=== PATIENT | male | born 1965 | race Caucasian/White ===

== ENCOUNTER 2016-02-20 10:14 | Inpatient (IN) ==
--- NOTE | 2016-02-20 10:38 | Emergency Department Note ---
Disposition Clinical Impression: Multifocal pneumonia Disposition: Admitted As Inpatient Condition: Fair Referrals: Priscilla Min MD [Primary Care Provider] - Forms: ED Satisfaction Letter SOB HPI - General Chief Complaint: ED Shortness of Breath/Dyspnea Stated Complaint: JI Time Seen by Provider: 02/20/16 10:24 Source: family Limitations: other Nursing Notes Reviewed: Yes Vital Signs Reviewed: Yes - History of Present Illness Igor is a 50-year-old male with a history of fragile X, recurrent pneumonia and schizophrenia who presents to the emergency department with an episode of coughing and gasping. He was at home, laying in bed when he began coughing and gasping for air. His sister used a portable pulse ox on his finger and it read 80% so she brought him directly to the emergency department. Over the last 2 days he has had a dry cough and multiple family members whom he lives with have similar symptoms and they thought he just caught what they had. Since he had the gasping episode today they brought him directly here. He has a history of aspiration the past patient was not eating or drinking and time. They reported him being in the hospital about a month ago for 2 days due to pneumonia. His sister states he felt very warm this morning but no documented fever. She denies any history of clots or DVTs. Patient cannot provide much information due to his chronic condition. - Related Data Home Medications Medication Instructions Recorded Confirmed Acebutolol HCl 200 mg PO QAM 11/18/15 01/13/16 Benztropine Mesylate 2 mg PO TID 11/18/15 01/13/16 Cetirizine HCl [Zyrtec] 10 mg PO DAILY 11/18/15 01/13/16 CloNIDine HCl [Clonidine HCl] 0.2 mg PO BID 11/18/15 01/13/16 Divalproex (24 HR) [Depakote ER 500 mg PO BID 11/18/15 01/13/16 (24 HR)] Fluphenazine [Prolixin] 10 mg PO BID 11/18/15 01/13/16 Hydroxyzine HCl 50 mg PO TID 11/18/15 01/13/16 Melatonin 5 mg PO HS 11/18/15 01/13/16 Omeprazole [PriLOSEC] 40 mg PO DAILY 11/18/15 01/13/16 Sulfamethoxazole/Trimeth DS 1 tab PO DAILY 11/18/15 01/13/16 [Bactrim Ds] Diazepam [Valium] 5 mg PO HS 01/13/16 01/13/16 Montelukast [Singulair] 10 mg PO HS 01/13/16 01/13/16 Previous Rx's Medication Instructions Recorded FLUoxetine HCl [Prozac] 60 mg PO DAILY #30 capsule 12/08/15 Maltodextrin/Xanthan Gum [Thicken 125 gm PO TIDAC #1 powder 12/08/15 Up Clear Powder] Allergies Allergy/AdvReac Type Severity Reaction Status Date / Time trazodone AdvReac See Verified 08/06/15 16:44 Comments Limitations: ROS unobtainable due to patients medical condition Constitutional: Reports: fever (Subjective) Respiratory: Reports: cough, dyspnea Gastrointestinal: Denies: vomiting Past Medical History - Past Medical History Medical history: Reports: asthma, GERD, other Surgical history: Reports: non-contributory Psychiatric history: Reports: bipolar, depression, schizophrenia, other - Social History Smoking Status: Never smoker Smokeless Tobacco Status: No Alcohol use: Reports: none Drug use: Reports: none Physical Exam General: Patient appears well, resting comfortably in bed, eyes open, interactive and seems appropriate Cardiovascular: Regular rate and rhythm. S1, S2. No murmurs, rubs or gallops. Respiratory: Diminished breath sounds in the bases bilaterally without any wheezing, crackles or rhonchi. No respiratory distress. Breathing unlabored with a pulse ox of 100% on room air. No coughing. Abdomen: Soft, nontender. No guarding, rebound or rigidity. Normal bowel sounds throughout. Eyes: Conjunctiva clear, no facial injury. HENT: No oral mucosal lesions. Moist mucous membranes Neuro: Patient moving all of his extremities purposely and symmetrically. He has chronic muscle wasting bilaterally with some contractures. Musculoskeletal: No joint tenderness or swelling. There is no redness, swelling , calf tenderness, edema or signs of DVT. Skin: Skin is warm with normal color and perfusion. No signs of infection. No diaphoresis. Psych: Appropriate - General Limitations: other General appearance: alert, in no apparent distress Course Course Narrative: 50-year-old with a history of fragile X, chronically bedbound, recurrent pneumonia presents the emergency department after a gasping and hypoxic episode at home. Patient's vital were stable by the time he got to the emergency department. He is slightly tachycardic. X-ray shows multifocal pneumonia and I am concerned that the patient continues to aspirate at home. Apparently they spoke with the surgeon in the past about a G-tube but was not recommended at that time in this discussion may need to occur again in the hospital. He was started on Levaquin and Flagyl for anaerobes. CBC unremarkable. CBC pending. I spoke with the on-call hospitalist, Dr. Mccrary who accepts for admission, no further orders at this time. Vital Signs Temperature 98 F 02/20/16 10:22 Pulse Rate 103 02/20/16 10:22 Respiratory Rate 22 02/20/16 10:22 Blood Pressure 102/79 02/20/16 10:22 O2 Sat by Pulse Oximetry 100 02/20/16 10:22 Temperature 98 F 02/20/16 10:22 Pulse Rate 100 02/20/16 12:28 Respiratory Rate 20 02/20/16 12:28 Blood Pressure 85/63 02/20/16 12:28 O2 Sat by Pulse Oximetry 100 02/20/16 12:28 Oxygen Delivery Oxygen Delivery Room Air Shortness of Breath/Dyspnea - Lab Data Result diagrams: 02/20/16 11:05 02/20/16 11:05 Lab Results 02/20/16 02/20/16 02/20/16 Range/Units 11:05 11:05 11:05 WBC 8.2 (4.3-11.1) K/mcL RBC 5.34 (4.19-5.50) M/mcL Hgb 16.1 (12.9-16.9) g/dL Hct 48.0 (37.5-50.1) % MCV 89.9 (83.0-100.0) fL MCH 30.1 (28.0-33.3) pg MCHC 33.5 (31.6-35.5) g/dL RDW 13.9 (11.5-14.5) % Plt Count 104 L (140-400) K/mcL MPV 11.4 (9.4-12.4) fL Immature Gran % 0.6 (0-4) % Seg Neutrophils % 90.9 % Lymphocytes % 4.0 % Monocytes % 4.4 % Eosinophils % 0.0 % Basophils % 0.1 % Neutrophils # 7.5 (1.6-8.9) K/mcL Lymphocytes # 0.3 L (0.6-4.6) K/mcL Monocytes # 0.4 (0.0-1.3) K/mcL Eosinophils # 0.0 (0.0-0.6) K/mcL Basophils # 0.0 (0.0-0.2) K/mcL Immature Plt Fraction 7.3 H (1.1-6.1) % D-Dimer < 215 (0-500) ng/mLFEU Sodium 136 (136-145) mEq/L Potassium 4.0 (3.5-4.5) mEq/L Chloride 106 (98-109) mEq/L Carbon Dioxide 19 (19-29) mEq/L BUN 7 L (8-26) mg/dL Creatinine 0.67 L (0.72-1.25) mg/dL Est GFR ( Amer) > 60 (> 60) Est GFR (Non-Af Amer) > 60 (> 60) BUN/Creatinine Ratio 10 (6-26) Glucose 80 (70-99) mg/dL Calculated Osmolality 279 L (280-300) Calcium 9.0 (8.6-10.8) mg/dL - EKG Data EKG attestation: Yes I reviewed and interpreted this EKG. EKG results narrative: Sinus tach at 106. Nonspecific ST changes. Normal axis. Normal QRS Unchanged from EKG January 12. EKG shows normal: Reports: sinus rhythm Rate: Reports: tachycardia Attestation Statement - Attestation Attestation: I examined this patient and my medical decision-making was reviewed with the HYPERTRICHOLOGIST/PA/Advanced Practice Nurse/Resident Physician. I agree with the documented findings, disposition and treatment plan as described except to the extent set forth below. Patient presents to emergency department with his chief complaint of a low pulse ox. Is accompanied by his sister. She states that this morning he was coughing when he woke up. The pulse ox and his finger read 80%. The [place] evaluation. On evaluation here is awake and alert in no distress. Lungs are slightly diminished but clear. Notably developmentally delayed. Hands are cold. Pulse ox only reads on forehead and is 100%. Plan. X-ray and basic labs. Patient with multifocal pneumonia. Patient has risk factors including aspiration, bedbound, MR. He is started on antibiotic and admitted to medicine.
[2016-02-20 11:30] LABS: BUN/Creatinine Ratio 10 (6-26); Blood Urea Nitrogen 7 mg/dL (8-26); Carbon Dioxide 19 mEq/L (19-29); Chloride 106 mEq/L (98-109); Glucose 80 mg/dL (70-99); Osmolality,Calculated 279 (280-300); Sodium 136 mEq/L (136-145); eGFR For African Americans > 60 (> 60); eGFR For Non-African Americans > 60 (> 60)
[2016-02-20] MEDS ORDERED: MetroNIDAZOLE 500 MG/100 ML 500 MG/100 ML BAG IVPB ONE (12:02)
[2016-02-20] MEDS ORDERED: Levofloxacin 750 MG/150 ML 750 MG/150 ML BAG IVPB ONE (12:02)
[2016-02-20 12:37] LABS: Basophils % 0.1 %; Hemoglobin 16.1 g/dL (12.9-16.9); Immature Granulocytes % 0.6 % (0-4); Immature Platelets 7.3 % (1.1-6.1); Lymphocytes # 0.3 K/mcL (0.6-4.6); Mean Corpuscular HGB Conc 33.5 g/dL (31.6-35.5); Mean Corpuscular Hemoglobin 30.1 pg (28.0-33.3); Mean Corpuscular Volume 89.9 fL (83.0-100.0); Mean Platelet Volume 11.4 fL (9.4-12.4); Monocytes # 0.4 K/mcL (0.0-1.3); Monocytes % 4.4 %; Neutrophils # 7.5 K/mcL (1.6-8.9); Platelet Count 104 K/mcL (140-400); Red Blood Count 5.34 M/mcL (4.19-5.50); Red Cell Distribution Width 13.9 % (11.5-14.5); Segmented Neutrophils % 90.9 %
[2016-02-20] MEDS ORDERED: Naloxone 0.4 MG/ML INJ IVP PRN (14:28)
[2016-02-20] MEDS ORDERED: Albuterol 2.5 MG/3 ML NEBULIZER IH PRN (14:32)
--- NOTE | 2016-02-20 14:52 | Internal Med History&Physical ---
Date of Encounter: 02/20/16 Time of Encounter: 14:00 Assessment and Plan (1) HCAP (healthcare-associated pneumonia) Current visit: Yes Status: Acute 1. Patient has had a recent hospitalization within the past 30 days. He presents with cough and subjective fevers x-ray suggestive of multi-focal pneumonia. Patient's high risk for aspiration. We will obtain blood cultures will attempt to obtain sputum culture however patient is not cooperative. We will start with Levaquin and vancomycin as well as Zosyn. Continue to monitor CBC 2 oxygen as needed to maintain SPO2 greater than 92% 3 bronchodilators as needed 4 place on aspiration precautions (2) Bipolar 1 disorder Current visit: No Status: Acute 1 patient times has outbursts/and becomes agitated easily. presently he has appears to be stable. 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 Alvarado is a 50 year old male with past history of fragile X MRDD bipolar schizophrenia recurrent pneumonia. Information obtained from caregiver and medical records due to patient's mental disability. The patient has history of aspiration and was recently hospitalized about a month ago for aspiration pneumonia. During this admission patient did not have barium swallow which revealed delayed initiation of swallowing with high residuals he was placed on pureed diet with thickened liquids. The family has opted not to place PEG tube and it changed his code status to a DNR CC. According to the caregiver for the past 3 days patient has been experiencing some coughing however she attributed to upper respiratory due to other family members experiencing same symptoms. This morning the patient was experiencing coughing and gasping while he is lying in bed. His caregiver checked his pulse oxygen on his finger which read 80% on room air. According to the ER notes the patient presented with tachycardia heart rate of 103 his sats are 100% he was afebrile x-ray showed a multifocal pneumonia there is no leukocytosis and the rest of his lab work is unremarkable he was given Levaquin and Flagyl and has been admitted for further workup and evaluation. Presently the patient does not appear to be in any respiratory distress. He is hemodynamically stable at this time. I did confirm CODE STATUS with caregiver he states that he is a DNR CC I reviewed the case with who agrees with plan. Past Med Surg Social Fam HX - Past Medical History Medical history: asthma, GERD, other Psychiatric history: bipolar, depression, schizophrenia, other - Past Surgical History Surgical History: non-contributory - Social History Smoking Status: Never smoker Smokeless Tobacco Status: No Alcohol use: none Drug use: none Internal Medicine - H&P: Meds Benztropine Mesylate 2 mg PO TID 11/18/15 [History] Cetirizine HCl [Zyrtec] 10 mg PO DAILY 11/18/15 [History] CloNIDine HCl [Clonidine HCl] 0.2 mg PO BID 11/18/15 [History] Divalproex (24 HR) [Depakote ER (24 HR)] 500 mg PO BID 11/18/15 [History] Fluphenazine [Prolixin] 10 mg PO BID 11/18/15 [History] Hydroxyzine HCl 50 mg PO TID 11/18/15 [History] Melatonin 5 mg PO HS 11/18/15 [History] Omeprazole [PriLOSEC] 40 mg PO DAILY 11/18/15 [History] Sulfamethoxazole/Trimeth DS [Bactrim Ds] 1 tab PO DAILY 11/18/15 [History] FLUoxetine HCl [Prozac] 60 mg PO DAILY #30 capsule 12/08/15 [Rx] Maltodextrin/Xanthan Gum [Thicken Up Clear Powder] 125 gm PO TIDAC #1 powder 03/23 [Rx] Diazepam [Valium] 5 mg PO HS 01/13/16 [History] Montelukast [Singulair] 10 mg PO HS 01/13/16 [History] Allergies trazodone Adverse Reaction (Verified 08/06/15 16:44) See Comments excessive errection ROS unobtainable: due to mental status All Systems PM: A 10-system review of systems was performed and is negative for pertinent findings except as documented above in the HPI. - Constitutional Vitals: Temp Pulse Resp BP Pulse Ox 100.3 F H 97 16 106/75 100 02/20/16 14:35 02/20/16 14:35 02/20/16 14:35 02/20/16 14:35 02/20/16 14:35 General appearance: Present: A&O X 1, underweight - Head Head exam: Present: atraumatic - Respiratory Respiratory exam: Present: decreased breath sounds, rhonchi. Absent: accessory muscle use, rales, wheezes Additional comments: faint rhonchi - Cardiovascular Cardiovascular exam: Present: RRR, +S1, +S2. Absent: diastolic murmur, gallop, rubs, systolic murmur - GI/Abdominal GI/Abdominal exam: Present: normal bowel sounds, soft, no peritoneal signs. Absent: distended, tenderness - Extremities Exam Extremities exam: Present: warm, radial pulses palpable and symetrical. Absent : calf tenderness, cyanotic, pedal edema - Neurological Exam Neurological exam: Absent: pronater drift, facial droop, speech deficit Additional comments: Oriented to name only unable to follow commands - Skin Skin exam: Present: dry, intact Internal Med - H&P Results - Labs CBC & Chem 7: 02/20/16 11:05 02/20/16 11:05 - EKG Data EKG shows normal: sinus rhythm Rate: tachycardia - EKG Data Prior EKG available for review: yes When compared to previous EKG: there is no significant change Interpretation IM: normal EKG - Diagnostic Studies Chest x-ray Additional comments: Per radiology read mild multifocal pneumonia
[2016-02-20] MEDS ORDERED: Vancomycin 750 MG in D5% in Water 250 ML IVPB SCH (16:00)
[2016-02-20] MEDS: 0.9 % Sodium Chloride 1,000 ML IVC SCH (16:24)
[2016-02-20] MEDS: Vancomycin 750 MG in D5% in Water 250 ML IVPB SCH (16:33)
[2016-02-20] MEDS: Piperacillin/Tazobactam 3.375 GM in D5% in Water (Mini-Bag+) 100 ML IVPB SCH (16:33)
[2016-02-20] MEDS ORDERED: Ondansetron 4 MG/2 ML VIAL ONE (20:04)
[2016-02-20] MEDS ORDERED: Ondansetron 4 MG/2 ML VIAL IV ONE (20:18)
[2016-02-20] MEDS: cloNIDine HCl 0.1 MG TABLET PO SCH (20:20)
[2016-02-20] MEDS: diazePAM 5 MG TABLET PO SCH (20:21)
[2016-02-20] MEDS: hydrOXYzine pamoate 25 MG CAPSULE PO SCH (20:21)
[2016-02-20] MEDS: Melatonin 3 MG TABLET PO SCH (20:21)
[2016-02-20] MEDS ORDERED: Divalproex (24 HR) 500 MG TABLET PO SCH (21:00)
[2016-02-20] MEDS: Valproic Acid INJ 500 MG in 0.9 % Sodium Chloride 100 ML IVPB SCH (22:03)
[2016-02-21] MEDS: Piperacillin/Tazobactam 3.375 GM in D5% in Water (Mini-Bag+) 100 ML IVPB SCH ×4 (00:47→23:49)
[2016-02-21] MEDS: 0.9 % Sodium Chloride 1,000 ML IVC SCH ×3 (00:48→23:50)
[2016-02-21] MEDS: Vancomycin 750 MG in D5% in Water 250 ML IVPB SCH ×2 (04:37→18:20)
[2016-02-21 05:52] LABS: Hematocrit 39.7 % (37.5-50.1); Hemoglobin 13.6 g/dL (12.9-16.9); Immature Granulocytes % 0.6 % (0-4); Immature Platelets 5.2 % (1.1-6.1); Lymphocytes # 0.4 K/mcL (0.6-4.6); Lymphocytes % 7.1 %; Mean Corpuscular HGB Conc 34.3 g/dL (31.6-35.5); Mean Corpuscular Hemoglobin 30.6 pg (28.0-33.3); Mean Corpuscular Volume 89.2 fL (83.0-100.0); Mean Platelet Volume 11.2 fL (9.4-12.4); Monocytes # 0.3 K/mcL (0.0-1.3); Monocytes % 5.5 %; Neutrophils # 5.4 K/mcL (1.6-8.9); Red Blood Count 4.45 M/mcL (4.19-5.50); Red Cell Distribution Width 13.6 % (11.5-14.5); Segmented Neutrophils % 86.8 %
[2016-02-21 05:59] LABS: BUN/Creatinine Ratio 11 (6-26); Blood Urea Nitrogen 7 mg/dL (8-26); Calcium 8.4 mg/dL (8.6-10.8); Carbon Dioxide 23 mEq/L (19-29); Chloride 106 mEq/L (98-109); Glucose 97 mg/dL (70-99); Osmolality,Calculated 282 (280-300); Potassium 4.3 mEq/L (3.5-4.5); Sodium 137 mEq/L (136-145); eGFR For African Americans > 60 (> 60); eGFR For Non-African Americans > 60 (> 60)
[2016-02-21 06:16] LABS: Platelet Count 85 K/mcL (140-400)
[2016-02-21 06:24] LABS: Large Platelets Present (Not Present); Platelet Estimate Decreased (Normal)
--- NOTE | 2016-02-21 08:08 | Internal Med Progress Note ---
<Naseem Wisdom - Last Filed: 02/21/16 12:16> Date of Encounter: 02/21/16 Time of Encounter: 08:08 - Assessment and plan (1) HCAP (healthcare-associated pneumonia) Current Visit: Yes Status: Acute Assessment and plan: Recent hospitalization last month, chest x-ray showed multifocal PNA, HCAP vs aspiration PNA, hx of recurrent aspiration issue, will con't vanco, zosyn and levaquin IV and deescalate based on culture results, blood culture pending, no sepsis. Will obtain CT of chest with contrast today. (2) History of aspiration pneumonia Current Visit: Yes Status: Acute Assessment and plan: Family member refused PEG tube last time, aspiration precaution, nutrition consulted for diet recommendation. (3) Mental retardation Current Visit: Yes Status: Acute Assessment and plan: At his baseline. (4) Thrombocytopenia Current Visit: Yes Status: Acute Assessment and plan: Likely 2/2 HCAP, con't to trend, recheck in AM. (5) Malnutrition Current Visit: Yes Status: Acute Assessment and plan: Nutrition consulted, recent weight loss. (6) DVT prophylaxis Current Visit: Yes Status: Acute Assessment and plan: SCD. - Subjective Interval history: Pt seen and examined, [facility], mental status is at his baseline, unable to answer questions. - Constitutional Vitals: Temp Pulse Resp BP Pulse Ox 97.7 F 87 16 115/69 100 02/21/16 07:00 02/21/16 07:00 02/21/16 07:00 02/21/16 07:00 02/21/16 07:00 General appearance: Present: A&O X 0, no acute distress, underweight - Head Head exam: Present: atraumatic, normocephalic - Eye Eye exam: Present: PERRL, conjuntiva pink, sclera anicteric Pupils: Present: PERRL - Neck Neck exam general surgery: Present: supple, trachea midline. Absent: lymphadenopathy - Respiratory Respiratory exam: Present: rhonchi (mildly diffusely). Absent: accessory muscle use, rales, wheezes - Cardiovascular Cardiovascular exam: Present: RRR, +S1, +S2. Absent: diastolic murmur, gallop, rubs, systolic murmur - GI/Abdominal GI/Abdominal exam: Present: normal bowel sounds, soft. Absent: distended, tenderness - Extremities Exam Extremities exam: Present: warm, radial pulses palpable and symetrical. Absent : calf tenderness, cyanotic, pedal edema - Neurological Exam Neurological exam: Present: CN II-XII intact, no focal deficits. Absent: oriented X3, pronater drift, facial droop, speech deficit - Skin Skin exam: Present: dry, intact Internal Medicine: Result - Labs CBC & Chem 7: 02/21/16 05:35 02/21/16 05:35 Labs: Short CBC 02/21/16 Range/Units 05:35 WBC 6.2 (4.3-11.1) K/mcL Hgb 13.6 D (12.9-16.9) g/dL Hct 39.7 (37.5-50.1) % Plt Count 85 L (140-400) K/mcL Neutrophils # 5.4 (1.6-8.9) K/mcL BMP 02/21/16 05:35 Sodium 137 Potassium 4.3 Chloride 106 Carbon Dioxide 23 BUN 7 L Creatinine 0.65 L Glucose 97 Calcium 8.4 L - ABG Interpretation ABG results: PT/INR, D-dimer D-Dimer < 215 ng/mLFEU (0-500) 02/20/16 11:05 Consult Discharge Plan - Plan Referrals: Priscilla Min MD [Primary Care Provider] - 03/03/16 10:45 am <Cam Pool - Last Filed: 02/21/16 17:03> Date of Encounter: 02/21/16 - Constitutional Vitals: Temp Pulse Resp BP Pulse Ox 97.7 F 81 16 105/71 100 02/21/16 07:00 02/21/16 15:00 02/21/16 15:00 02/21/16 15:00 02/21/16 15:00 Internal Medicine: Result - Labs CBC & Chem 7: 02/21/16 05:35 02/21/16 05:35 Labs: Short CBC 02/21/16 Range/Units 05:35 WBC 6.2 (4.3-11.1) K/mcL Hgb 13.6 D (12.9-16.9) g/dL Hct 39.7 (37.5-50.1) % Plt Count 85 L (140-400) K/mcL Neutrophils # 5.4 (1.6-8.9) K/mcL BMP 02/21/16 05:35 Sodium 137 Potassium 4.3 Chloride 106 Carbon Dioxide 23 BUN 7 L Creatinine 0.65 L Glucose 97 Calcium 8.4 L - ABG Interpretation ABG results: PT/INR, D-dimer D-Dimer < 215 ng/mLFEU (0-500) 02/20/16 11:05 - Impressions Impressions Chest CT 02/21/16 13:00 IMPRESSION: 1. Multifocal pneumonia. Given material within the right lower lobe bronchus, aspiration is suspected. 2. Mediastinal and hilar adenopathy, likely reactive. D/ / Yomaira Almonte MD / Yomaira Almonte MD Interpreting Provider: Yomaira Almonte MD - Attending Attestation I examined this patient and my medical decision-making was reviewed with the ENVIRONMENTAL MARKETING REPRESENTATIVE/PA/Advanced Practice Nurse/Resident Physician. I agree with the documented findings, disposition and treatment plan as described except to the extent set forth below. Recurrent pneumonia, multiple visits for the same diagnosis in the recent past, strong family history of malignancy, nonintentional weight loss and positive CT scan. Pulmonary opinion may help in further diagnosis.
[2016-02-21] MEDS: FLUoxetine 20 MG CAPSULE PO SCH (09:23)
[2016-02-21] MEDS: cloNIDine HCl 0.1 MG TABLET PO SCH (09:23)
[2016-02-21] MEDS: Loratadine 10 MG TABLET PO SCH (09:23)
[2016-02-21] MEDS: hydrOXYzine pamoate 25 MG CAPSULE PO SCH ×3 (09:23→20:25)
[2016-02-21] MEDS: Levofloxacin 500 MG/100 ML 500 MG/100 ML BAG IVPB SCH (09:24)
[2016-02-21] MEDS: Valproic Acid INJ 500 MG in 0.9 % Sodium Chloride 100 ML IVPB SCH ×2 (14:14→22:50)
[2016-02-21] MEDS: diazePAM 5 MG TABLET PO SCH (20:25)
[2016-02-21] MEDS: Melatonin 3 MG TABLET PO SCH (20:26)
[2016-02-21] MEDS ORDERED: cloNIDine HCl 0.1 MG TABLET PO SCH (21:00)
[2016-02-21] MEDS: Acetaminophen 325 MG TABLET PO PRN (23:46)
[2016-02-22] MEDS: Vancomycin 750 MG in D5% in Water 250 ML IVPB SCH (05:01)
[2016-02-22] MEDS ORDERED: Aminoglycoside Consult 1 EACH MC ONE (08:07)
--- NOTE | 2016-02-22 08:19 | Internal Med Progress Note ---
<Naseem Wisdom - Last Filed: 02/22/16 14:37> Date of Encounter: 02/22/16 Time of Encounter: 08:18 - Assessment and plan (1) Aspiration pneumonia Current Visit: Yes Status: Acute Assessment and plan: Recurrent issue, CT of chest suggested aspiration pneumonia, family member refused PEG tube last time, pulm consulted, no bronchoscopy was recommended for low yield results, con't zosyn IV, total of 7 days, switch to augmentin at time of discharge. Qualifiers: Qualified Code(s): J69.0 - Pneumonitis due to inhalation of food and vomit (2) Mental retardation Current Visit: Yes Status: Acute Assessment and plan: At his baseline. (3) Thrombocytopenia Current Visit: Yes Status: Acute Assessment and plan: Likely 2/2 infection, con't to trend, recheck in AM. (4) Malnutrition Current Visit: Yes Status: Acute Assessment and plan: Nutrition consulted, recent weight loss. (5) DVT prophylaxis Current Visit: Yes Status: Acute Assessment and plan: SCD. - Subjective Interval history: Pt seen and examined, A and O x0 from [facility], mental status is at his baseline, unable to answer questions. - Constitutional Vitals: Temp Pulse Resp BP Pulse Ox 99.3 F 79 81 95/64 18 L 02/22/16 07:40 02/22/16 07:34 02/22/16 07:34 02/22/16 07:34 02/22/16 07:34 General appearance: Present: A&O X 0, no acute distress, underweight - Head Head exam: Present: atraumatic, normocephalic - Eye Eye exam: Present: PERRL, conjuntiva pink, sclera anicteric Pupils: Present: PERRL - Neck Neck exam general surgery: Present: supple, trachea midline. Absent: lymphadenopathy - Respiratory Respiratory exam: Present: rhonchi (at base b/l). Absent: accessory muscle use , rales, wheezes - Cardiovascular Cardiovascular exam: Present: RRR, +S1, +S2. Absent: diastolic murmur, gallop, rubs, systolic murmur - GI/Abdominal GI/Abdominal exam: Present: normal bowel sounds, soft, no peritoneal signs. Absent: distended, tenderness - Extremities Exam Extremities exam: Present: warm, radial pulses palpable and symetrical. Absent : calf tenderness, cyanotic, pedal edema - Neurological Exam Neurological exam: Present: CN II-XII intact, oriented X3, no focal deficits. Absent: pronater drift, facial droop, speech deficit - Skin Skin exam: Present: dry, intact Internal Medicine: Result - Labs CBC & Chem 7: 02/21/16 05:35 02/21/16 05:35 - ABG Interpretation ABG results: PT/INR, D-dimer D-Dimer < 215 ng/mLFEU (0-500) 02/20/16 11:05 - Impressions Impressions Chest CT 02/21/16 13:00 IMPRESSION: 1. Multifocal pneumonia. Given material within the right lower lobe bronchus, aspiration is suspected. 2. Mediastinal and hilar adenopathy, likely reactive. D/ / 02/21/2016 17:11:20 Yomaira Almonte MD / [facility] [place] Interpreting Provider: Yomaira Almonte MD - VTE Documentation of Mechanical Device: Intermittent pneumatic compression device Consult Discharge Plan - Plan Referrals: Priscilla Min MD [Primary Care Provider] - 03/03/16 10:45 am <Pedro Dunlap - Last Filed: 02/22/16 16:55> Date of Encounter: 02/22/16 - Assessment and plan (1) Aspiration pneumonia Current Visit: Yes Status: Acute Qualifiers: Aspiration pneumonia type: due to gastric secretions Laterality: bilateral Lung location: upper lobe of lung Qualified Code(s): J69.0 - Pneumonitis due to inhalation of food and vomit (2) Dysphagia Current Visit: Yes Status: Acute Qualifiers: Dysphagia type: oropharyngeal phase Qualified Code(s): R13.12 - Dysphagia, oropharyngeal phase (3) Unintentional weight loss Current Visit: Yes Status: Chronic (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 Current Visit: No Status: Chronic (5) Mental retardation Current Visit: Yes Status: Acute (6) Severe protein-calorie malnutrition Current Visit: Yes Status: Acute - Constitutional Vitals: Temp Pulse Resp BP Pulse Ox 99.5 F 104 18 118/72 100 02/22/16 11:37 02/22/16 11:37 02/22/16 11:37 02/22/16 11:37 01/17/17 11:37 Internal Medicine: Result - Labs CBC & Chem 7: 02/21/16 05:35 02/21/16 05:35 - ABG Interpretation ABG results: PT/INR, D-dimer D-Dimer < 215 ng/mLFEU (0-500) 02/20/16 11:05 - Attending Attestation I examined this patient and my medical decision-making was reviewed with the Resident Physician on 02/22/16. I agree with the documented findings, disposition and treatment plan as described except to the extent set forth below. Mr. Alvarado is currently admitted for acute recurrent aspiration pneumonia. He remains moderate to high risk due to potential of worsening respiratory status and infection. Mr. Alvarado is resting comfortably. He is awake and smiling when I visited. No complaints at this time. Exam Alert. Comfortable Cachetic. Mucus membranes moist Heart reg Lungs with rhonchi bilaterally I/P 1. Recurrent acute aspiration pneumonia - on IV abx. Can transition to PO. 2. Dysphagia 3. Weight loss Discussed with family - need to decide ultimate plan of care. Will consult palliative.
--- NOTE | 2016-02-22 09:38 | Pulmonology Consult Note ---
Date of Encounter: 02/22/16 Time of Encounter: 09:35 Assessment and Plan (1) Abnormal CT scan, chest Current Visit: Yes Status: Acute I personally reviewed this CT scan of the chest. There are bilateral patchy infiltrates most notably in the right lower lobe. There is also mucoid material in the bronchus intermedius and right lower lobe. No overt mucous plugging or atelectasis is noted. Mediastinal and hilar adenopathy is likely reactive in etiology. No lung mass or clear signs of malignancy noted. There are no prior CT scans of the chest for comparison. These findings are all consistent with aspiration pneumonia/pneumonitis. I would not recommend bronchoscopy, as it would be a low yield procedure. I recommend avoidance of future aspiration events as able and a repeat CT scan of the chest in 2-3 months to observe for radiographic clearance of these abnormalities. (2) Aspiration pneumonia Current Visit: No Status: Acute Zosyn would likely be adequate coverage for aspiration pneumonia. I would recommend a 7 day course of antibiotics. Augmentin would be a reasonable outpatient regimen to initiate at the time of discharge to complete the course of antibiotics, assuming that cultured data is negative. Qualifiers: Aspiration pneumonia type: unspecified Laterality: bilateral Lung location: lower lobe of lung Qualified Code(s): J69.0 - Pneumonitis due to inhalation of food and vomit (3) Dysphagia Current Visit: Yes Status: Acute Recurrent aspiration, which is not likely reversible at this point. He just got done choking on nectar thickened liquids at the time of my exam (due to "drinking too fast"). This will be a recurrent event. I would recommend strict NPO status and PEG tube insertion. Although a PEG tube does not completely prevent aspiration, it would be the best choice in this scenario in my opinion. No further recommendations from a pulmonary standpoint. Will sign off. Please call with questions. Qualifiers: Dysphagia type: unspecified Qualified Code(s): R13.10 - Dysphagia, unspecified History of Present Illness Consult date: 02/22/16 Requesting physician: Naseem Wisdom Reason for consult: abnormal CXR/CT Chief complaint: recurrent aspiration History of present illness: 50-year-old white male with a medical history significant for mental retardation who presents to the hospital with recurrent aspiration. Of note, I am unable to obtain any history or review of systems secondary to patient's baseline mental status. Information was obtained from the medical record and in discussion with hospital staff. Reportedly, the patient had a recent hospitalization for aspiration pneumonia/ pneumonitis. It was recommended that the patient had a PEG tube placed at that time, but this was not in accordance with the family's wishes. Unfortunately, the patient re-presented with respiratory symptoms associated with aspiration. A CT scan of the chest was obtained, which revealed bilateral infiltrates and debris and the right-sided airways. There is also mediastinal and hilar adenopathy noted. Of note, the patient had been fed prior to my entering the room. Per the nursing program chair who had been feeding the patient, despite coaching the patient had drank his thickened liquid to fast causing him to choke and cough. He is still coughing the time of my exam. Patient denies any current symptoms, but as I said previously he has baseline mental retardation and is an unreliable historian. Past Med Surg Social Fam HX - Past Medical History Medical history: asthma, GERD, other Psychiatric history: bipolar, depression, schizophrenia, other - Past Surgical History Surgical History: non-contributory - Social History Smoking Status: Never smoker Smokeless Tobacco Status: No Alcohol use: none Drug use: none Medications and Allergies Benztropine Mesylate 2 mg PO TID 11/18/15 [History] Cetirizine HCl [Zyrtec] 10 mg PO DAILY 11/18/15 [History] CloNIDine HCl [Clonidine HCl] 0.2 mg PO BID 11/18/15 [History] Divalproex (24 HR) [Depakote ER (24 HR)] 500 mg PO BID 11/18/15 [History] Fluphenazine [Prolixin] 10 mg PO BID 11/18/15 [History] Hydroxyzine HCl 50 mg PO TID 11/18/15 [History] Melatonin 5 mg PO HS 11/18/15 [History] Omeprazole [PriLOSEC] 40 mg PO DAILY 11/18/15 [History] Sulfamethoxazole/Trimeth DS [Bactrim Ds] 1 tab PO DAILY 11/18/15 [History] FLUoxetine HCl [Prozac] 60 mg PO DAILY #30 capsule 12/08/15 [Rx] Maltodextrin/Xanthan Gum [Thicken Up Clear Powder] 125 gm PO TIDAC #1 powder 03/23 [Rx] Diazepam [Valium] 5 mg PO HS 01/13/16 [History] Montelukast [Singulair] 10 mg PO HS 01/13/16 [History] Allergies trazodone Adverse Reaction (Verified 08/06/15 16:44) See Comments excessive errection ROS unobtainable: due to mental status Physical Examination Vital Signs: Vital Signs, Last 4 Hours Temp Pulse Resp BP Pulse Ox 02/22/16 07:40 99.3 F 02/22/16 07:34 79 81 95/64 18 L General: no acute distress, chronically ill-appearing, contractures of extremities noted Eyes: nonicteric ENT: oropharynx moist Neck: supple, no lymphadenopathy Lungs: Coarse bilateral breath sounds Cardiovascular: regular rate and rhythm Gastrointestinal: normoactive bowel sounds, soft, non-tender, mildly distended Integumentary: normal Extremities: no cyanosis, no edema. Musculoskeletal: apparent contractures of the upper and lower extremities noted Neuro: Alert and interactive with caregivers, but baseline of mental retardation , does not answer questions appropriately Psych: odd affect Results - Laboratory Findings CBC and BMP: 02/21/16 05:35 02/21/16 05:35 PT/INR, D-dimer D-Dimer < 215 ng/mLFEU (0-500) 02/20/16 11:05 Abnormal lab findings: Abnormal lab results Plt Count 85 K/mcL (140-400) L 02/21/16 05:35 Lymphocytes # 0.4 K/mcL (0.6-4.6) L 02/21/16 05:35 Platelet Estimate Decreased (Normal) L 02/21/16 05:35 Large Platelets Present (Not Present) A 02/21/16 05:35 BUN 7 mg/dL (8-26) L 02/21/16 05:35 Creatinine 0.65 mg/dL (0.72-1.25) L 02/21/16 05:35 Calcium 8.4 mg/dL (8.6-10.8) L 02/21/16 05:35 - Microbiology Findings Microbiology Findings: Microbiology, Last 48 Hours 02/20/16 15:52 Blood Culture - Preliminary Peripheral Venipuncture No growth. - Clinical Findings Intake & Output: Intake & Output 02/21/16 02/22/16 02/22/16 23:59 07:59 15:59 Intake Total 1350 / 1350 100 / 100 Output Total 0 / 0 Balance 1350 / 1350 100 / 100 Weight 43.1 kg Consult Discharge Plan - Plan Referrals: Priscilla Min MD [Primary Care Provider] - 03/03/16 10:45 am
[2016-02-22] MEDS: Divalproex (12 HR) 500 MG TABLET PO SCH ×2 (10:26→21:51)
[2016-02-22] MEDS: hydrOXYzine pamoate 25 MG CAPSULE PO SCH ×3 (10:26→21:52)
[2016-02-22] MEDS: Loratadine 10 MG TABLET PO SCH (10:27)
[2016-02-22] MEDS: FLUoxetine 20 MG CAPSULE PO SCH (10:27)
[2016-02-22] MEDS: Levofloxacin 500 MG/100 ML 500 MG/100 ML BAG IVPB SCH (10:27)
[2016-02-22] MEDS: 0.9 % Sodium Chloride 1,000 ML IVC SCH (10:28)
[2016-02-22] MEDS: Piperacillin/Tazobactam 3.375 GM in D5% in Water (Mini-Bag+) 100 ML IVPB SCH (10:28)
[2016-02-22] MEDS ORDERED: Vancomycin 1,000 MG in D5% in Water 250 ML IVPB SCH (17:00)
--- NOTE | 2016-02-22 17:05 | Electrocardiograph Report ---
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
[2016-02-22] MEDS ORDERED: Piperacillin/Tazobactam 3.375 GM in D5% in Water (Mini-Bag+) 100 ML IVPB SCH (18:00)
[2016-02-22] MEDS: Acetaminophen 325 MG TABLET PO PRN (19:17)
[2016-02-22] MEDS: Melatonin 3 MG TABLET PO SCH (21:52)
[2016-02-22] MEDS: diazePAM 5 MG TABLET PO SCH (21:52)
[2016-02-23 05:26] LABS: Basophils % 0.9 %; Hematocrit 40.2 % (37.5-50.1); Hemoglobin 13.8 g/dL (12.9-16.9); Immature Granulocytes % 0.4 % (0-4); Immature Platelets 4.9 % (1.1-6.1); Lymphocytes # 0.4 K/mcL (0.6-4.6); Lymphocytes % 17.6 %; Mean Corpuscular HGB Conc 34.3 g/dL (31.6-35.5); Mean Corpuscular Hemoglobin 29.9 pg (28.0-33.3); Mean Platelet Volume 11.3 fL (9.4-12.4); Monocytes # 0.3 K/mcL (0.0-1.3); Monocytes % 11.2 %; Neutrophils # 1.6 K/mcL (1.6-8.9); Red Blood Count 4.62 M/mcL (4.19-5.50); Red Cell Distribution Width 13.3 % (11.5-14.5); Segmented Neutrophils % 69.9 %
[2016-02-23 05:30] LABS: Platelet Count 74 K/mcL (140-400)
[2016-02-23 06:17] LABS: Large Platelets Present (Not Present); Platelet Estimate Decreased (Normal)
--- NOTE | 2016-02-23 08:36 | Internal Med Progress Note ---
<Naseem Wisdom - Last Filed: 02/23/16 11:51> Date of Encounter: 02/23/16 Time of Encounter: 08:36 - Assessment and plan (1) Aspiration pneumonia Current Visit: Yes Status: Acute Assessment and plan: Recurrent issue, CT of chest suggested aspiration pneumonia, family member refused PEG tube last time, pulm consulted, no bronchoscopy was recommended for low yield results, clinically and lab/vital sign worse, septic, will resume vanco and zosyn IV today, blood cultures negative, recent hospitalization so HCAP including MRSA infection cannot be ruled out, unable to collect sputum sample. Palliative consult for goal of care. (2) Mental retardation Current Visit: Yes Status: Acute Assessment and plan: At his baseline but clinically worse than yesterday from pneumonia. (3) Thrombocytopenia Current Visit: Yes Status: Acute Assessment and plan: Likely 2/2 infection, worse, con't to monitor and broaden IV abxs. (4) Malnutrition Current Visit: Yes Status: Acute Assessment and plan: Nutrition consulted, recent weight loss. (5) DVT prophylaxis Current Visit: Yes Status: Acute Assessment and plan: SCD. - Subjective Interval history: Pt seen and examined, A and O x0 from [facility], mental status is at his baseline, unable to answer questions but looks more drowsy and diaphoretic today. - Constitutional Vitals: Temp Pulse Resp BP Pulse Ox 97.6 F 110 22 114/87 100 02/23/16 07:00 02/23/16 07:00 02/23/16 07:00 02/23/16 07:00 02/23/16 07:00 General appearance: Present: A&O X 0, no acute distress, underweight - Head Head exam: Present: atraumatic, normocephalic - Eye Eye exam: Present: PERRL, conjuntiva pink, sclera anicteric Pupils: Present: PERRL - Neck Neck exam general surgery: Present: supple, trachea midline. Absent: lymphadenopathy - Respiratory Respiratory exam: Present: CTAB. Absent: accessory muscle use, rales, rhonchi, wheezes - Cardiovascular Cardiovascular exam: Present: +S1, +S2, tachycardia. Absent: diastolic murmur, gallop, rubs, systolic murmur - GI/Abdominal GI/Abdominal exam: Present: normal bowel sounds, soft, no peritoneal signs. Absent: distended, tenderness - Extremities Exam Extremities exam: Present: warm, radial pulses palpable and symetrical. Absent : calf tenderness, cyanotic, pedal edema - Neurological Exam Neurological exam: Present: CN II-XII intact, no focal deficits. Absent: alert , oriented X3, pronater drift, facial droop, speech deficit - Skin Skin exam: Present: dry, intact Internal Medicine: Result - Labs CBC & Chem 7: 02/23/16 04:32 02/21/16 05:35 Labs: Short CBC 02/23/16 Range/Units 04:32 WBC 2.3 L D (4.3-11.1) K/mcL Hgb 13.8 (12.9-16.9) g/dL Hct 40.2 (37.5-50.1) % Plt Count 74 L (140-400) K/mcL Neutrophils # 1.6 (1.6-8.9) K/mcL - ABG Interpretation ABG results: PT/INR, D-dimer D-Dimer < 215 ng/mLFEU (0-500) 02/20/16 11:05 - VTE Documentation of Mechanical Device: Intermittent pneumatic compression device Consult Discharge Plan - Plan Referrals: Priscilla Min MD [Primary Care Provider] - 03/03/16 10:45 am <Pedro Dunlap - Last Filed: 02/23/16 15:53> Date of Encounter: 02/23/16 - Assessment and plan (1) Aspiration pneumonia Current Visit: Yes Status: Acute Qualifiers: Aspiration pneumonia type: due to gastric secretions Laterality: bilateral Lung location: upper lobe of lung Qualified Code(s): J69.0 - Pneumonitis due to inhalation of food and vomit (2) Dysphagia Current Visit: Yes Status: Acute Qualifiers: Dysphagia type: oropharyngeal phase Qualified Code(s): R13.12 - Dysphagia, oropharyngeal phase (3) Unintentional weight loss Current Visit: Yes Status: Chronic (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 Current Visit: No Status: Chronic (5) Mental retardation Current Visit: Yes Status: Acute (6) Severe protein-calorie malnutrition Current Visit: Yes Status: Acute - Constitutional Vitals: Temp Pulse Resp BP Pulse Ox 97.6 F 113 16 120/83 99 02/23/16 07:00 02/23/16 11:00 02/23/16 11:00 02/23/16 11:00 02/23/16 11:00 Internal Medicine: Result - Labs CBC & Chem 7: 02/23/16 04:32 02/21/16 05:35 Labs: Short CBC 02/23/16 Range/Units 04:32 WBC 2.3 L D (4.3-11.1) K/mcL Hgb 13.8 (12.9-16.9) g/dL Hct 40.2 (37.5-50.1) % Plt Count 74 L (140-400) K/mcL Neutrophils # 1.6 (1.6-8.9) K/mcL - ABG Interpretation ABG results: PT/INR, D-dimer D-Dimer < 215 ng/mLFEU (0-500) 02/20/16 11:05 - Attending Attestation I examined this patient and my medical decision-making was reviewed with the Resident Physician on 02/23/16. I agree with the documented findings, disposition and treatment plan as described except to the extent set forth below. Mr. Alvarado is currently admitted for recurrent aspiration pneumonia due to significant dysphagia. He remains moderate to high risk due to continued aspiration and decline. Mr. Alvarado had low grade temp last night. He is not as alert this AM. He was coughing while drinking yesterday. Currently he is awake but not as interactive as yesterday. Exam Alert. No respiratory distress. Heart tachy and regular Lungs coarse I/P 1. Recurrent asp pneumonia - restarting IV abx today pending decisions regarding goals of care. 2. Dysphagia 3. Fragile X syndrome Palliative care consulted and input appreciated. Hospice consulted as well.
[2016-02-23] MEDS: hydrOXYzine pamoate 25 MG CAPSULE PO SCH ×3 (09:49→20:36)
[2016-02-23] MEDS: Loratadine 10 MG TABLET PO SCH (09:50)
[2016-02-23] MEDS: FLUoxetine 20 MG CAPSULE PO SCH (09:50)
[2016-02-23] MEDS: Divalproex (12 HR) 500 MG TABLET PO SCH ×2 (09:54→20:25)
--- NOTE | 2016-02-23 10:47 | Palliative - Consult Note ---
Date of Encounter: 02/23/16 Time of Encounter: 10:00 - Assessment and Plan (1) Goals of care, counseling/discussion Current Visit: Yes Status: Acute Assessment and plan: Conducted meeting with sister Leslie (patient's guardian) # [phone] and sister Nasima # [phone]. Medical record reviewed and discussed unplanned weight loss from dysphagia and aspiration pneumonia. Discussed multiple admissions over past 4 months with aspiration and impact on body. Reviewed pulmonary note as well as speech pathology details related to diet and feeding patient. Sisters serve as primary care givers and patient currently getting [facility] services in the form of PT twice week and nurse visit twice a week. Discussed the pros and cons of having PEG inserted to facilitate nutritional needs. Education on insertion, feedings and maintenance provided. Answered questions related to potential for infection and explained that aspiration would still be issue given that patient prefers to sleep flat in the bed and move around frequently. Sisters verbalized that they had no desire to insert a PEG for nutrition. I explained to them that the patient meets hospice criteria given his poor ability to manage po intake and dysphagia secondary to his Fragile X syndrome. Sisters open to meeting with hospice retail field representative to learn more about hospice and the care they would receive. I provided the basic details related to philosophy and quality of care goals. Currently the patient is able to ambulate with the assistance of sisters and go out into the shopping center to shop. He sits in the chair regularly at home but has to be hand fed by family. I will set -up a meeting between hospice rep and family. Will follow outcome of meeting and transition care as indicated. (2) Malnutrition Current Visit: Yes Status: Acute Assessment and plan: Patient with 30% unplanned weight loss over past months. Current weight 43.1kg. Severe protein and calorie malnutrition. Patient with continued aspiration pneumonia admissions and family declines insertion of a PEG tube. MBS normal. Patient recommended feeding with spoon a pureed and nector thick liquid diet. Patient unable to follow commands. Slow po feedings by hand of caregiver and family deciding on hospice enrollment. (3) Dysphagia Current Visit: Yes Status: Acute Assessment and plan: Recommendations from speech include feed small bites with spoon of a diet Pureed and nector thick liquids. HOB elevated. Educated sisters in feeding process as patient cannot follow commands. Monitor I & O. Qualifiers: Dysphagia type: oropharyngeal phase Qualified Code(s): R13.12 - Dysphagia, oropharyngeal phase (4) Aspiration pneumonia Current Visit: Yes Status: Acute Qualifiers: Aspiration pneumonia type: due to gastric secretions Laterality: bilateral Lung location: upper lobe of lung Qualified Code(s): J69.0 - Pneumonitis due to inhalation of food and vomit Palliative-CN HPI - Data of Consult Patient: new to practice Consult date: 02/23/16 Requesting Physician: Pedro Dunlap DO Primary Care Provider: Priscilla Min - Consult Narrative Palliative Care/Comfort Measures: Palliative care Reason for consult: Goals of care History of present illness: Mr. Alvarado is a 50 year old male with a history of Fragile X syndrome MRDD. Admitted from home with aspiration pneumonia. Patient noted to have multiple admissions over the past 4 months with aspiration issues. Baseline MRDD with no ability to hold meaningful conversations. Patient with bipolar and schizophrenia. Chart reviewed for H & P and pulmonary consult noted. It appears that the patient has had issues with dysphagia at home. Multiple provider notes indicate that family desires NOT to insert a PEG tube. This palliative care consult is for goals of care planning. CC: Perdo Dunlap DO Past Med Surg Social Fam HX - Past Medical History Source: old records reviewed, nursing notes reviewed Medical history: asthma, GERD, other Psychiatric history: bipolar, depression, schizophrenia, other - Past Surgical History Surgical History: non-contributory - Social History Smoking Status: Never smoker Smokeless Tobacco Status: No Alcohol use: none Drug use: none Occupational status: unemployed Current living situation: Home, With Family Activity Level: Bed bound Recent Out of Country Travel Within the Last 8 Weeks: No Exposure or Possible Exposure to Illness During Travel: No Medications and Allergies Benztropine Mesylate 2 mg PO TID 11/18/15 [History] Cetirizine HCl [Zyrtec] 10 mg PO DAILY 11/18/15 [History] CloNIDine HCl [Clonidine HCl] 0.2 mg PO BID 11/18/15 [History] Divalproex (24 HR) [Depakote ER (24 HR)] 500 mg PO BID 11/18/15 [History] Fluphenazine [Prolixin] 10 mg PO BID 11/18/15 [History] Hydroxyzine HCl 50 mg PO TID 11/18/15 [History] Melatonin 5 mg PO HS 11/18/15 [History] Omeprazole [PriLOSEC] 40 mg PO DAILY 11/18/15 [History] Sulfamethoxazole/Trimeth DS [Bactrim Ds] 1 tab PO DAILY 11/18/15 [History] FLUoxetine HCl [Prozac] 60 mg PO DAILY #30 capsule 12/08/15 [Rx] Maltodextrin/Xanthan Gum [Thicken Up Clear Powder] 125 gm PO TIDAC #1 powder 03/23 [Rx] Diazepam [Valium] 5 mg PO HS 01/13/16 [History] Montelukast [Singulair] 10 mg PO HS 01/13/16 [History] Allergies trazodone Adverse Reaction (Verified 08/06/15 16:44) See Comments excessive errection ROS unobtainable: due to mental status (patient with MRDD) - Constitutional Constitutional ROS PAL: weight loss - EENT Ears, nose, mouth, throat: as per HPI - Musculoskeletal Musculoskeletal ROS IM: muscle weakness - Neurological Neurological ROS: as per HPI Palliative Care-Exam - Constitutional Vitals: Temp Pulse Resp BP Pulse Ox 97.6 F 110 22 114/87 100 02/23/16 07:00 02/23/16 07:00 02/23/16 07:00 02/23/16 07:00 02/23/16 07:00 General appearance: Present: cooperative, no acute distress - Head Head Exam: Present: atraumatic, normal inspection, normocephalic - Eye Eye exam: Present: PERRL Pupils: Present: PERRL - ENT ENT exam: Present: mucous membranes moist - Respiratory Respiratory exam: Present: decreased breath sounds - Expanded Respiratory Exam Location: decreased breath sounds: Left, Right, Lower - Cardiovascular Cardiovascular exam: Present: RRR, +S1, +S2 - Expanded Cardiovascular Exam Peripheral pulses: 2+: Carotid (L) PM, Carotid (R) PM, Radial (L), Radial (R), Dorsalis Pedis (L) PM, Dorsalis Pedis (R) PM - GI/Abdominal Exam GI/Abdominal exam: Present: soft - Rectal Rectal Exam: Present: deferred - Neurological Exam Neurological exam: Present: alert (MRDD, contracture of upper and lower extremities) - Psychiatric Psychiatric exam: Present: flat affect - Skin Skin exam: Present: warm Internal Medicine - CN: Reslt - Labs CBC & Chem 7: 02/23/16 04:32 02/21/16 05:35 Labs: Short CBC 02/23/16 Range/Units 04:32 WBC 2.3 L D (4.3-11.1) K/mcL Hgb 13.8 (12.9-16.9) g/dL Hct 40.2 (37.5-50.1) % Plt Count 74 L (140-400) K/mcL Neutrophils # 1.6 (1.6-8.9) K/mcL - ABG Interpretation ABG results: PT/INR, D-dimer D-Dimer < 215 ng/mLFEU (0-500) 02/20/16 11:05 Consult Discharge Plan - Plan Referrals: Priscilla Min MD [Primary Care Provider] - 03/03/16 10:45 am Palliative Quality Palliative Quality: Screen for Code Status: Yes, Screen for Goals of Care: Yes, Screen for Pain: Yes, Screen for Nausea/Vomitting: Yes
[2016-02-23] MEDS ORDERED: Vancomycin (wt based) 1,000 MG VIAL IVPB SCH (11:00)
[2016-02-23] MEDS ORDERED: *HR* Metoprolol 5 MG/5 ML VIAL IVP ONE (12:03)
[2016-02-23] MEDS: Acetaminophen 325 MG TABLET PO PRN (12:45)
[2016-02-23] MEDS: Piperacillin/Tazobactam 3.375 GM in D5% in Water (Mini-Bag+) 100 ML IVPB SCH ×2 (12:52→18:30)
[2016-02-23] MEDS: Vancomycin 1,000 MG in D5% in Water 250 ML IVPB SCH ×2 (12:54→22:33)
--- NOTE | 2016-02-23 15:59 | Event Note ---
Date of Encounter: 02/23/16 Time of Encounter: 15:00 Family met with Sherin SOTO from [facility]. Conducted educational session on hospice process, benefits and focus on transition to comfort care quality of life focus. Family informed that if hospice transition takes place the patient would not return to the hospital for admission. Family not sure if they are ready to give up their brother. They still desire the patient to return to hospital if needed and not sure at this point if they are ready for hospice care. I informed them that maybe home palliative care would be a better option and explained how they provide home care. Family desires some additional time to process all of this information. Palliative care team will follow-up in AM for further discussions.
[2016-02-23] MEDS: diazePAM 5 MG TABLET PO SCH (20:25)
[2016-02-23] MEDS: Melatonin 3 MG TABLET PO SCH (20:25)
[2016-02-24] MEDS: Piperacillin/Tazobactam 3.375 GM in D5% in Water (Mini-Bag+) 100 ML IVPB SCH ×4 (00:53→23:00)
[2016-02-24 05:57] LABS: Hemoglobin 13.2 g/dL (12.9-16.9); Red Cell Distribution Width 13.5 % (11.5-14.5)
[2016-02-24 05:59] LABS: Basophils % 0.4 %; Eosinophils % 1.7 %; Hematocrit 38.7 % (37.5-50.1); Immature Granulocytes % 0.4 % (0-4); Lymphocytes # 0.8 K/mcL (0.6-4.6); Lymphocytes % 34.6 %; Mean Corpuscular HGB Conc 34.1 g/dL (31.6-35.5); Mean Corpuscular Hemoglobin 29.6 pg (28.0-33.3); Mean Corpuscular Volume 86.8 fL (83.0-100.0); Mean Platelet Volume 11.8 fL (9.4-12.4); Monocytes # 0.4 K/mcL (0.0-1.3); Neutrophils # 1.2 K/mcL (1.6-8.9); Red Blood Count 4.46 M/mcL (4.19-5.50); Segmented Neutrophils % 47.9 %
[2016-02-24 06:02] LABS: BUN/Creatinine Ratio 6 (6-26); Calcium 8.4 mg/dL (8.6-10.8); Carbon Dioxide 28 mEq/L (19-29); Chloride 105 mEq/L (98-109); Glucose 81 mg/dL (70-99); Osmolality,Calculated 284 (280-300); Potassium 3.3 mEq/L (3.5-4.5); Sodium 139 mEq/L (136-145); eGFR For African Americans > 60 (> 60); eGFR For Non-African Americans > 60 (> 60)
[2016-02-24 06:04] LABS: Blood Urea Nitrogen 4 mg/dL (8-26)
[2016-02-24 06:25] LABS: Platelet Count 69 K/mcL (140-400)
[2016-02-24 06:57] LABS: Platelet Estimate Marked Decrease (Normal); Reactive Lymphocytes Present (Not Present)
--- NOTE | 2016-02-24 08:26 | Internal Med Progress Note ---
<Naseem Wisdom - Last Filed: 02/24/16 13:53> Date of Encounter: 02/24/16 Time of Encounter: 08:25 - Assessment and plan (1) Aspiration pneumonia Current Visit: Yes Status: Acute Assessment and plan: Recurrent issue, CT of chest suggested aspiration pneumonia, family member refused PEG tube last time, pulm consulted, no bronchoscopy was recommended for low yield results, restarted vanco and zosyn yesterday, clinically and lab/VS improved, unlikely MRSA otherwise he will be sicker, will hold it and resume zosyn IV for now and con't to monitor. Palliative consulted, family decided not to go for hospice care for now and want to con't HH. Qualifiers: Aspiration pneumonia type: due to gastric secretions Laterality: bilateral Lung location: upper lobe of lung Qualified Code(s): J69.0 - Pneumonitis due to inhalation of food and vomit (2) Mental retardation Current Visit: Yes Status: Acute Assessment and plan: At his baseline, clinically better than yesterday. (3) Thrombocytopenia Current Visit: Yes Status: Acute Assessment and plan: Likely 2/2 infection, worse, con't to monitor and con't IV abx, no recent heparin administration w/in two weeks. (4) Malnutrition Current Visit: Yes Status: Acute Assessment and plan: Nutrition consulted, recent weight loss. (5) DVT prophylaxis Current Visit: Yes Status: Acute Assessment and plan: SCD. - Subjective Interval history: Pt seen and examined, [facility], mental status is at his baseline, unable to answer questions but looks better than yesterday. - Constitutional Vitals: Temp Pulse Resp BP Pulse Ox 98 F 90 15 118/71 98 02/24/16 07:00 02/24/16 07:00 02/24/16 07:00 02/24/16 07:00 02/24/16 07:00 General appearance: Present: A&O X 0, no acute distress, underweight - Head Head exam: Present: atraumatic, normocephalic - Eye Eye exam: Present: PERRL, conjuntiva pink, sclera anicteric Pupils: Present: PERRL - Neck Neck exam general surgery: Present: supple, trachea midline. Absent: lymphadenopathy - Respiratory Respiratory exam: Present: CTAB. Absent: accessory muscle use, rales, rhonchi, wheezes - Cardiovascular Cardiovascular exam: Present: RRR, +S1, +S2. Absent: diastolic murmur, gallop, rubs, systolic murmur - GI/Abdominal GI/Abdominal exam: Present: normal bowel sounds, soft, no peritoneal signs. Absent: distended, tenderness - Extremities Exam Extremities exam: Present: warm, radial pulses palpable and symetrical. Absent : calf tenderness, cyanotic, pedal edema - Neurological Exam Neurological exam: Present: CN II-XII intact, no focal deficits. Absent: oriented X3, pronater drift, facial droop, speech deficit - Skin Skin exam: Present: dry, intact Internal Medicine: Result - Labs CBC & Chem 7: 02/24/16 05:40 02/24/16 05:40 Labs: Short CBC 02/24/16 Range/Units 05:40 WBC 2.4 L (4.3-11.1) K/mcL Hgb 13.2 (12.9-16.9) g/dL Hct 38.7 (37.5-50.1) % Plt Count 69 L (140-400) K/mcL Neutrophils # 1.2 L (1.6-8.9) K/mcL BMP 02/24/16 05:40 Sodium 139 Potassium 3.3 L Chloride 105 Carbon Dioxide 28 BUN 4 L Creatinine 0.63 L Glucose 81 Calcium 8.4 L - ABG Interpretation ABG results: PT/INR, D-dimer D-Dimer < 215 ng/mLFEU (0-500) 02/20/16 11:05 - VTE Documentation of Mechanical Device: Intermittent pneumatic compression device Consult Discharge Plan - Plan Instructions: Malnutrition (DC), Malnutrition (GEN), Sepsis (DC), Pneumonia (DC ) Referrals: Priscilla Min MD [Primary Care Provider] - 03/03/16 10:45 am <Pedro Dunlap - Last Filed: 02/24/16 16:57> Date of Encounter: 02/24/16 - Assessment and plan (1) Aspiration pneumonia Current Visit: Yes Status: Acute Qualifiers: Aspiration pneumonia type: due to gastric secretions Laterality: bilateral Lung location: upper lobe of lung Qualified Code(s): J69.0 - Pneumonitis due to inhalation of food and vomit (2) Dysphagia Current Visit: Yes Status: Acute Qualifiers: Dysphagia type: oropharyngeal phase Qualified Code(s): R13.12 - Dysphagia, oropharyngeal phase (3) Unintentional weight loss Current Visit: Yes Status: Chronic (4) Hypokalemia Current Visit: Yes Status: Acute Assessment and plan: Replace today. 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 (6) Mental retardation Current Visit: Yes Status: Acute (7) Severe protein-calorie malnutrition Current Visit: Yes Status: Acute - Constitutional Vitals: Temp Pulse Resp BP Pulse Ox 97.5 F L 87 16 111/72 100 02/24/16 16:00 02/24/16 16:00 02/24/16 16:00 02/24/16 16:00 02/24/16 16:00 Internal Medicine: Result - Labs CBC & Chem 7: 02/24/16 05:40 02/24/16 05:40 Labs: Short CBC 02/24/16 Range/Units 05:40 WBC 2.4 L (4.3-11.1) K/mcL Hgb 13.2 (12.9-16.9) g/dL Hct 38.7 (37.5-50.1) % Plt Count 69 L (140-400) K/mcL Neutrophils # 1.2 L (1.6-8.9) K/mcL BMP 02/24/16 05:40 Sodium 139 Potassium 3.3 L Chloride 105 Carbon Dioxide 28 BUN 4 L Creatinine 0.63 L Glucose 81 Calcium 8.4 L - ABG Interpretation ABG results: PT/INR, D-dimer D-Dimer < 215 ng/mLFEU (0-500) 02/20/16 11:05 - Attending Attestation I examined this patient and my medical decision-making was reviewed with the Resident Physician on 02/24/16. I agree with the documented findings, disposition and treatment plan as described except to the extent set forth below. Mr. Alvarado is currently admitted for recurrent aspiration pneumonia and respiratory failure. He remains moderate to high risk due to potential for worsening respiratory symptoms and continued issues with pneumonia. Mr. Alvarado is awake and clinically improved but is not eating or drinking well and did not take his meds this morning. He denies pain. Family is still discussing further plans regarding his care. Exam Alert. Comfortable Heart reg Lungs with scattered rhonchi Abd soft I/P 1. Recurrent aspiration pneumonia 2. Dysphagia Further diagnoses and plan as above. Working on d/c planning.
--- NOTE | 2016-02-24 10:10 | Palliative Progress Note ---
Date of Encounter: 02/24/16 Time of Encounter: 10:10 - Assessment and plan (1) Dysphagia Current Visit: Yes Status: Acute Assessment and plan: Continues with feeding recommendations from speech. Only intake yesterday is 50 % for lunch. He refused breakfast this am. May only eat for family caregivers. Will monitor Qualifiers: Dysphagia type: oropharyngeal phase Qualified Code(s): R13.12 - Dysphagia, oropharyngeal phase (2) Goals of care, counseling/discussion Current Visit: Yes Status: Acute Assessment and plan: Meeting reviewed with palliative yesterday. Will f/u with pt sisters today and see if they have made any decision. Discussed with social services technician, who will meet with them as well. - Time Spent With Patient Total time spent is greater than 50% in coordination of care (as documented) at patient's floor/unit and/or counseling patient: 25 - 35 minutes - Subjective Interval history: Patient awake and alert. Nonverbal. Doesn't follow commands. Smiles when spoken to. Primary nurse reports he refused breakfast and medications this am. No family arrived yet. - Constitutional Vitals: Abnormal lab results WBC 2.4 K/mcL (4.3-11.1) L 02/24/16 05:40 Plt Count 69 K/mcL (140-400) L 02/24/16 05:40 Neutrophils # 1.2 K/mcL (1.6-8.9) L 02/24/16 05:40 Reactive Lymphocytes Present (Not Present) A 02/24/16 05:40 Platelet Estimate Marked Decrease (Normal) L 02/24/16 05:40 Large Platelets Present (Not Present) A 02/23/16 04:32 Immature Plt Fraction 7.0 % (1.1-6.1) H 02/24/16 05:40 Potassium 3.3 mEq/L (3.5-4.5) L 02/24/16 05:40 BUN 4 mg/dL (8-26) L 02/24/16 05:40 Creatinine 0.63 mg/dL (0.72-1.25) L 02/24/16 05:40 Calcium 8.4 mg/dL (8.6-10.8) L 02/24/16 05:40 General appearance: Present: no acute distress - Respiratory Respiratory exam: Present: decreased breath sounds, CTAB Additional comments: Shallow inspiratory effort - Cardiovascular Cardiovascular exam: Present: +S1, +S2 - GI/Abdominal GI/Abdominal exam: Present: normal bowel sounds, soft - Extremities Exam Additional comments: Contractures to bilateral extremities noted - Neurological Exam Neurological exam: Present: alert, altered - Skin Skin exam: Present: dry, pallor, warm Palliative Quality Palliative Quality: Screen for Code Status: Yes, Screen for Goals of Care: Yes, Screen for Pain: Yes, Screen for Nausea/Vomitting: Yes - Labs CBC & Chem 7: 02/24/16 05:40 02/24/16 05:40 Labs: Laboratory Results - last 24 hr 02/24/16 02/24/16 05:40 05:40 WBC 2.4 L RBC 4.46 Hgb 13.2 Hct 38.7 MCV 86.8 MCH 29.6 MCHC 34.1 RDW 13.5 Plt Count 69 L MPV 11.8 Immature Gran % 0.4 Seg Neutrophils % 47.9 Lymphocytes % 34.6 Monocytes % 15.0 Eosinophils % 1.7 Basophils % 0.4 Neutrophils # 1.2 L Lymphocytes # 0.8 Monocytes # 0.4 Eosinophils # 0.0 Basophils # 0.0 Reactive Lymphocytes Present A Platelet Estimate Marked Decrease L Immature Plt Fraction 7.0 H Sodium 139 Potassium 3.3 L Chloride 105 Carbon Dioxide 28 BUN 4 L Creatinine 0.63 L Est GFR ( Amer) > 60 Est GFR (Non-Af Amer) > 60 BUN/Creatinine Ratio 6 Glucose 81 Calculated Osmolality 284 Calcium 8.4 L - ABG Interpretation ABG results: PT/INR, D-dimer D-Dimer < 215 ng/mLFEU (0-500) 02/20/16 11:05 Consult Discharge Plan - Plan Referrals: Priscilla Min MD [Primary Care Provider] - 03/03/16 10:45 am
[2016-02-24] MEDS: FLUoxetine 20 MG CAPSULE PO SCH (11:59)
[2016-02-24] MEDS: Divalproex (12 HR) 500 MG TABLET PO SCH ×2 (12:00→20:36)
[2016-02-24] MEDS: Loratadine 10 MG TABLET PO SCH (12:00)
[2016-02-24] MEDS: hydrOXYzine pamoate 25 MG CAPSULE PO SCH ×3 (12:00→20:36)
[2016-02-24] MEDS: diazePAM 5 MG TABLET PO SCH (20:36)
[2016-02-24] MEDS: Melatonin 3 MG TABLET PO SCH (20:36)
[2016-02-25 03:46] LABS: Immature Granulocytes % 0.5 % (0-4); Mean Corpuscular HGB Conc 34.4 g/dL (31.6-35.5); Mean Corpuscular Volume 86.4 fL (83.0-100.0)
[2016-02-25 03:47] LABS: BUN/Creatinine Ratio 5 (6-26); Calcium 8.3 mg/dL (8.6-10.8); Carbon Dioxide 26 mEq/L (19-29); Chloride 109 mEq/L (98-109); Glucose 95 mg/dL (70-99); Osmolality,Calculated 288 (280-300); Sodium 141 mEq/L (136-145); eGFR For African Americans > 60 (> 60); eGFR For Non-African Americans > 60 (> 60)
[2016-02-25 03:48] LABS: Basophils % 0.5 %; Eosinophils # 0.1 K/mcL (0.0-0.6); Eosinophils % 1.3 %; Hematocrit 39.5 % (37.5-50.1); Hemoglobin 13.6 g/dL (12.9-16.9); Immature Platelets 5.1 % (1.1-6.1); Lymphocytes # 1.1 K/mcL (0.6-4.6); Lymphocytes % 28.1 %; Mean Corpuscular Hemoglobin 29.8 pg (28.0-33.3); Mean Platelet Volume 11.2 fL (9.4-12.4); Monocytes # 0.5 K/mcL (0.0-1.3); Monocytes % 11.7 %; Neutrophils # 2.3 K/mcL (1.6-8.9); Red Blood Count 4.57 M/mcL (4.19-5.50); Red Cell Distribution Width 13.7 % (11.5-14.5); Segmented Neutrophils % 57.9 %
[2016-02-25 03:50] LABS: Blood Urea Nitrogen 3 mg/dL (8-26); Magnesium 1.9 mg/dL (1.6-2.6); Potassium 5.5 mEq/L (3.5-4.5)
[2016-02-25 03:55] LABS: Platelet Count 80 K/mcL (140-400)
[2016-02-25 04:24] LABS: Reactive Lymphocytes Present (Not Present)
[2016-02-25 04:25] LABS: Platelet Estimate Normal (Normal)
--- NOTE | 2016-02-25 08:31 | Internal Med Progress Note ---
Date of Encounter: 02/25/16 Time of Encounter: 08:31 - Assessment and plan (1) Aspiration pneumonia Current Visit: Yes Status: Acute Qualifiers: Aspiration pneumonia type: due to gastric secretions Laterality: bilateral Lung location: upper lobe of lung Qualified Code(s): J69.0 - Pneumonitis due to inhalation of food and vomit (2) Mental retardation Current Visit: Yes Status: Acute (3) Thrombocytopenia Current Visit: Yes Status: Acute (4) Malnutrition Current Visit: Yes Status: Acute (5) DVT prophylaxis Current Visit: Yes Status: Acute - Subjective Interval history: Pt seen and examined, [facility], mental status is at his baseline, unable to answer questions but looks better than yesterday. - Constitutional Vitals: Temp Pulse Resp BP Pulse Ox 97.9 F 88 15 127/85 100 02/25/16 07:33 02/25/16 07:33 02/25/16 07:33 02/25/16 07:33 02/25/16 07:33 General appearance: Present: A&O X 0, no acute distress, underweight Internal Medicine: Result - Labs CBC & Chem 7: 02/25/16 03:25 02/25/16 03:25 Labs: Short CBC 02/25/16 Range/Units 03:25 WBC 3.9 L D (4.3-11.1) K/mcL Hgb 13.6 (12.9-16.9) g/dL Hct 39.5 (37.5-50.1) % Plt Count 80 L (140-400) K/mcL Neutrophils # 2.3 (1.6-8.9) K/mcL BMP 02/25/16 03:25 Sodium 141 Potassium 5.5 H D Chloride 109 Carbon Dioxide 26 BUN 3 L Creatinine 0.62 L Glucose 95 Calcium 8.3 L - ABG Interpretation ABG results: PT/INR, D-dimer D-Dimer < 215 ng/mLFEU (0-500) 02/20/16 11:05 - VTE Documentation of Mechanical Device: Intermittent pneumatic compression device Consult Discharge Plan - Plan Instructions: Malnutrition (DC), Malnutrition (GEN), Sepsis (DC), Pneumonia (DC ) Referrals: Priscilla Min MD [Primary Care Provider] - 03/03/16 10:45 am
--- NOTE | 2016-02-25 10:08 | Physician Discharge Referral ---
- Diagnosis (1) Aspiration pneumonia Status: Acute (2) Mental retardation Status: Acute (3) Thrombocytopenia Status: Acute (4) Malnutrition Status: Acute (5) DVT prophylaxis Status: Acute - Respiratory Orders Smoking Cessation: Smoking cessation has been advised. For more information, call the [place] Tobacco Quit Line at 5-810-HVRD-NOW. - Transfer Medications Home Medications: Benztropine Mesylate 2 mg PO TID 11/18/15 [History] Cetirizine HCl [Zyrtec] 10 mg PO DAILY 11/18/15 [History] CloNIDine HCl [Clonidine HCl] 0.2 mg PO BID 11/18/15 [History] Divalproex (24 HR) [Depakote ER (24 HR)] 500 mg PO BID 11/18/15 [History] Fluphenazine [Prolixin] 10 mg PO BID 11/18/15 [History] Hydroxyzine HCl 50 mg PO TID 11/18/15 [History] Melatonin 5 mg PO HS 11/18/15 [History] Omeprazole [PriLOSEC] 40 mg PO DAILY 11/18/15 [History] Sulfamethoxazole/Trimeth DS [Bactrim Ds] 1 tab PO DAILY 11/18/15 [History] FLUoxetine HCl [Prozac] 60 mg PO DAILY #30 capsule 12/08/15 [Rx] Maltodextrin/Xanthan Gum [Thicken Up Clear Powder] 125 gm PO TIDAC #1 powder 03/23 [Rx] Diazepam [Valium] 5 mg PO HS 01/13/16 [History] Montelukast [Singulair] 10 mg PO HS 01/13/16 [History] Allergies/Adverse Reactions: Allergies trazodone Adverse Reaction (Verified 08/06/15 16:44) See Comments excessive errection Certification: Further, I certify that my clinical findings support that this patient is homebound (i.e. absences from home require considerable and taxing effort and are for medical reasons or jew services or infrequently or short duration when for other reasons) because: Attestation: My signature below is to certify that this patient is under my care and that I, or nurse practitioner, or a physician's licensed occupational therapy assistant working with me, has a face-to -face encounter with this patient.
--- NOTE | 2016-02-25 10:08 | Discharge Summary ---
Date of Encounter: 02/25/16 Time of Encounter: 10:08 - Discharge Diagnosis (1) Aspiration pneumonia Priority: Primary Status: Acute Qualifiers: Aspiration pneumonia type: due to gastric secretions Laterality: bilateral Lung location: upper lobe of lung Qualified Code(s): J69.0 - Pneumonitis due to inhalation of food and vomit (2) Mental retardation Status: Acute (3) Thrombocytopenia Status: Acute (4) Malnutrition Status: Acute (5) DVT prophylaxis Status: Acute - Discharge Medications Home Medications: Benztropine Mesylate 2 mg PO TID 11/18/15 [History] Cetirizine HCl [Zyrtec] 10 mg PO DAILY 11/18/15 [History] CloNIDine HCl [Clonidine HCl] 0.2 mg PO BID 11/18/15 [History] Divalproex (24 HR) [Depakote ER (24 HR)] 500 mg PO BID 11/18/15 [History] Fluphenazine [Prolixin] 10 mg PO BID 11/18/15 [History] Hydroxyzine HCl 50 mg PO TID 11/18/15 [History] Melatonin 5 mg PO HS 11/18/15 [History] Omeprazole [PriLOSEC] 40 mg PO DAILY 11/18/15 [History] Sulfamethoxazole/Trimeth DS [Bactrim Ds] 1 tab PO DAILY 11/18/15 [History] FLUoxetine HCl [Prozac] 60 mg PO DAILY #30 capsule 12/08/15 [Rx] Maltodextrin/Xanthan Gum [Thicken Up Clear Powder] 125 gm PO TIDAC #1 powder 03/23 [Rx] Diazepam [Valium] 5 mg PO HS 01/13/16 [History] Montelukast [Singulair] 10 mg PO HS 01/13/16 [History] Allergies/Adverse Reactions: Allergies trazodone Adverse Reaction (Verified 08/06/15 16:44) See Comments excessive errection Date of admission: 02/22/16 12:31 Primary care physician: Priscilla Min Consults: 02/22/16 16:31 Consult to Palliative Care [CONS] Routine Comment: recurrent aspiration pna, refused PEG Consulting Provider: Palliative Care [facility] Discharging clinician: Naseem Wisdom Anticipated date of discharge: 02/25/16 - Patient Status Condition: Fair - Discharge Instructions Instructions: Malnutrition (DC), Malnutrition (GEN), Sepsis (DC), Pneumonia (DC ) Follow Up With: Priscilla Min MD [Primary Care Provider] - 03/03/16 10:45 am Hospital course: Mr. Alvarado is a 50 year old male - Time Spent with Patient Total time spent providing and/or coordinating discharge services: - Constitutional Vitals: Temp Pulse Resp BP Pulse Ox 97.9 F 88 15 127/85 100 02/25/16 07:33 02/25/16 07:33 02/25/16 07:33 02/25/16 07:33 02/25/16 07:33 General appearance: Present: A&O X 0, no acute distress, underweight - VTE Documentation of Mechanical Device: Intermittent pneumatic compression device
[2016-02-25] MEDS: FLUoxetine 20 MG CAPSULE PO SCH (12:09)
[2016-02-25] MEDS: hydrOXYzine pamoate 25 MG CAPSULE PO SCH ×3 (12:09→19:57)
[2016-02-25] MEDS: Loratadine 10 MG TABLET PO SCH (12:09)
[2016-02-25] MEDS: Divalproex (12 HR) 500 MG TABLET PO SCH (12:10)
[2016-02-25] MEDS: Piperacillin/Tazobactam 3.375 GM in D5% in Water (Mini-Bag+) 100 ML IVPB SCH ×3 (12:11→23:05)
--- NOTE | 2016-02-25 15:02 | Internal Med Progress Note ---
<Naseem Wisdom - Last Filed: 02/25/16 14:55> Date of Encounter: 02/25/16 Time of Encounter: 14:55 - Assessment and plan (1) Aspiration pneumonia Current Visit: Yes Status: Acute Assessment and plan: Recurrent issue, CT of chest suggested aspiration pneumonia, family member refused PEG tube last time, pulm consulted, no bronchoscopy was recommended for low yield results, restarted vanco and zosyn yesterday, clinically and lab/VS improved, unlikely MRSA otherwise he will be sicker, with zosyn IV, leukocytosis and thrombocytopenia improve, con't to monitor. Palliative consulted, family decided not to go for hospice care for now and want to con't HH. Likely d/c tmw. Qualifiers: Aspiration pneumonia type: due to gastric secretions Laterality: bilateral Lung location: upper lobe of lung Qualified Code(s): J69.0 - Pneumonitis due to inhalation of food and vomit (2) Mental retardation Current Visit: Yes Status: Acute Assessment and plan: At his baseline, clinically better than yesterday. (3) Thrombocytopenia Current Visit: Yes Status: Acute Assessment and plan: Likely 2/2 infection, improved, con't to monitor and con't IV abx, no recent heparin administration w/in two weeks. (4) Malnutrition Current Visit: Yes Status: Acute Assessment and plan: Nutrition consulted, recent weight loss. (5) DVT prophylaxis Current Visit: Yes Status: Acute Assessment and plan: SCD. - Subjective Interval history: Pt seen and examined, same mentation as yesterday, clinically looks better than yesterday. - Constitutional Vitals: Temp Pulse Resp BP Pulse Ox 97.6 F 92 16 124/88 99 02/25/16 11:00 02/25/16 11:00 02/25/16 11:00 02/25/16 11:00 02/25/16 11:00 General appearance: Present: A&O X 0, no acute distress, underweight - Head Head exam: Present: atraumatic, normocephalic - Eye Eye exam: Present: PERRL, conjuntiva pink, sclera anicteric Pupils: Present: PERRL - Neck Neck exam general surgery: Present: supple, trachea midline. Absent: lymphadenopathy - Respiratory Respiratory exam: Present: CTAB. Absent: accessory muscle use, rales, rhonchi, wheezes - Cardiovascular Cardiovascular exam: Present: RRR, +S1, +S2. Absent: diastolic murmur, gallop, rubs, systolic murmur - GI/Abdominal GI/Abdominal exam: Present: normal bowel sounds, soft, no peritoneal signs. Absent: distended, tenderness - Extremities Exam Extremities exam: Present: warm, radial pulses palpable and symetrical. Absent : calf tenderness, cyanotic, pedal edema - Neurological Exam Neurological exam: Present: CN II-XII intact, oriented X3, no focal deficits. Absent: pronater drift, facial droop, speech deficit - Skin Skin exam: Present: dry, intact Internal Medicine: Result - Labs CBC & Chem 7: 02/25/16 03:25 02/25/16 03:25 Labs: Short CBC 02/25/16 Range/Units 03:25 WBC 3.9 L D (4.3-11.1) K/mcL Hgb 13.6 (12.9-16.9) g/dL Hct 39.5 (37.5-50.1) % Plt Count 80 L (140-400) K/mcL Neutrophils # 2.3 (1.6-8.9) K/mcL BMP 02/25/16 03:25 Sodium 141 Potassium 5.5 H D Chloride 109 Carbon Dioxide 26 BUN 3 L Creatinine 0.62 L Glucose 95 Calcium 8.3 L - ABG Interpretation ABG results: PT/INR, D-dimer D-Dimer < 215 ng/mLFEU (0-500) 02/20/16 11:05 - VTE Documentation of Mechanical Device: Intermittent pneumatic compression device Consult Discharge Plan - Plan Instructions: Malnutrition (DC), Malnutrition (GEN), Sepsis (DC), Pneumonia (DC ) Referrals: Priscilla Min MD [Primary Care Provider] - 03/03/16 10:45 am <Pedro Dunlap - Last Filed: 02/25/16 17:14> Date of Encounter: 02/25/16 - Assessment and plan (1) Aspiration pneumonia Current Visit: Yes Status: Acute Qualifiers: Aspiration pneumonia type: due to gastric secretions Laterality: bilateral Lung location: upper lobe of lung Qualified Code(s): J69.0 - Pneumonitis due to inhalation of food and vomit (2) Dysphagia Current Visit: Yes Status: Acute Qualifiers: Dysphagia type: oropharyngeal phase Qualified Code(s): R13.12 - Dysphagia, oropharyngeal phase (3) Unintentional weight loss Current Visit: Yes Status: Chronic (4) Hypokalemia Current Visit: Yes Status: Acute 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 (6) Mental retardation Current Visit: Yes Status: Acute (7) Severe protein-calorie malnutrition Current Visit: Yes Status: Acute - Constitutional Vitals: Temp Pulse Resp BP Pulse Ox 97.6 F 83 15 120/86 100 02/25/16 16:00 02/25/16 16:00 02/25/16 16:00 02/25/16 16:00 02/25/16 16:00 Internal Medicine: Result - Labs CBC & Chem 7: 02/25/16 03:25 02/25/16 03:25 Labs: Short CBC 02/25/16 Range/Units 03:25 WBC 3.9 L D (4.3-11.1) K/mcL Hgb 13.6 (12.9-16.9) g/dL Hct 39.5 (37.5-50.1) % Plt Count 80 L (140-400) K/mcL Neutrophils # 2.3 (1.6-8.9) K/mcL BMP 02/25/16 03:25 Sodium 141 Potassium 5.5 H D Chloride 109 Carbon Dioxide 26 BUN 3 L Creatinine 0.62 L Glucose 95 Calcium 8.3 L - ABG Interpretation ABG results: PT/INR, D-dimer D-Dimer < 215 ng/mLFEU (0-500) 02/20/16 11:05 - Attending Attestation I examined this patient and my medical decision-making was reviewed with the Resident Physician on 02/25/16. I agree with the documented findings, disposition and treatment plan as described except to the extent set forth below. Mr. Alvarado is currently admitted for recurrent aspiration pneumonia and dysphagia. He remains moderate risk due to potential for worsening respiratory symptoms and infection. Mr. Alvarado is not eating or taking meds for staff but will for his sister. He clinically has had some improvement with restarting IV Zosyn. Family is working to get home ready for him with anticipated discharge tomorrow. Exam Alert. Comfortable Heart reg Lungs with some rhonchi I/P 1. Recurrent aspiration pneumonia 2. Dysphagia - we have ordered hospital bed for at home. Has previously used a wedge which he still has at home as well. Further diagnoses and plan as above.
[2016-02-25] MEDS: Melatonin 3 MG TABLET PO SCH (19:57)
[2016-02-25] MEDS: diazePAM 5 MG TABLET PO SCH (19:57)
[2016-02-26 03:11] LABS: Hematocrit 38.1 % (37.5-50.1); Red Blood Count 4.38 M/mcL (4.19-5.50)
[2016-02-26 03:12] LABS: Basophils % 0.2 %; Eosinophils # 0.1 K/mcL (0.0-0.6); Eosinophils % 1.5 %; Immature Granulocytes % 0.5 % (0-4); Immature Platelets 4.4 % (1.1-6.1); Lymphocytes # 1.2 K/mcL (0.6-4.6); Lymphocytes % 28.9 %; Mean Corpuscular HGB Conc 34.1 g/dL (31.6-35.5); Mean Corpuscular Hemoglobin 29.7 pg (28.0-33.3); Mean Platelet Volume 10.6 fL (9.4-12.4); Monocytes # 0.5 K/mcL (0.0-1.3); Monocytes % 12.7 %; Neutrophils # 2.3 K/mcL (1.6-8.9); Red Cell Distribution Width 13.4 % (11.5-14.5); Segmented Neutrophils % 56.2 %
[2016-02-26 03:16] LABS: Platelet Count 97 K/mcL (140-400)
[2016-02-26 03:24] LABS: BUN/Creatinine Ratio 13 (6-26); Blood Urea Nitrogen 7 mg/dL (8-26); Calcium 8.7 mg/dL (8.6-10.8); Carbon Dioxide 27 mEq/L (19-29); Chloride 107 mEq/L (98-109); Glucose 84 mg/dL (70-99); Osmolality,Calculated 295 (280-300); Sodium 144 mEq/L (136-145); eGFR For African Americans > 60 (> 60); eGFR For Non-African Americans > 60 (> 60)
[2016-02-26 03:25] LABS: Potassium 3.4 mEq/L (3.5-4.5)
[2016-02-26 03:28] LABS: Large Platelets Present (Not Present); Platelet Estimate Decreased (Normal); Polychromasia 1+ (Not Present); Reactive Lymphocytes Present (Not Present); Smudge Cells Present (Not Present)
[2016-02-26 08:02] VITALS: BP 134/94
--- NOTE | 2016-02-26 08:03 | Discharge Summary ---
<AlyxNaseem - Last Filed: 02/26/16 10:17> Date of Encounter: 02/26/16 Time of Encounter: 08:03 - Discharge Diagnosis (1) Aspiration pneumonia Priority: Primary Status: Acute Qualifiers: Aspiration pneumonia type: due to gastric secretions Laterality: bilateral Lung location: upper lobe of lung Qualified Code(s): J69.0 - Pneumonitis due to inhalation of food and vomit (2) Mental retardation Priority: Secondary Status: Acute (3) Thrombocytopenia Priority: Secondary Status: Acute (4) Malnutrition Priority: Secondary Status: Acute (5) DVT prophylaxis Priority: Secondary Status: Acute - Discharge Medications Prescriptions: Piperacillin/Tazobactam [Zosyn] 3.375 gm IVPB Q8HR 4 Days Home Medications: Benztropine Mesylate 2 mg PO TID 11/18/15 [History] Cetirizine HCl [Zyrtec] 10 mg PO DAILY 11/18/15 [History] Divalproex (24 HR) [Depakote ER (24 HR)] 500 mg PO BID 11/18/15 [History] Fluphenazine [Prolixin] 10 mg PO BID 11/18/15 [History] Hydroxyzine HCl 50 mg PO TID 11/18/15 [History] Melatonin 5 mg PO HS 11/18/15 [History] Omeprazole [PriLOSEC] 40 mg PO DAILY 11/18/15 [History] FLUoxetine HCl [Prozac] 60 mg PO DAILY #30 capsule 12/08/15 [Rx] Maltodextrin/Xanthan Gum [Thicken Up Clear Powder] 125 gm PO TIDAC #1 powder 03/23 [Rx] Diazepam [Valium] 5 mg PO HS 01/13/16 [History] Montelukast [Singulair] 10 mg PO HS 01/13/16 [History] Piperacillin/Tazobactam [Zosyn] 3.375 gm IVPB Q8HR 4 Days 02/26/16 [Rx] Allergies/Adverse Reactions: Allergies trazodone Adverse Reaction (Verified 08/06/15 16:44) See Comments excessive errection Date of admission: 02/22/16 12:31 Primary care physician: Priscilla Min Consults: 02/22/16 16:31 Consult to Palliative Care [CONS] Routine Comment: recurrent aspiration pna, refused PEG Consulting Provider: Palliative Care [facility] Discharging clinician: Naseem Wisdom Anticipated date of discharge: 02/26/16 - Patient Status Disposition: Home Health Service Condition: Fair Functional capacity at discharge: wheelchair bound (fall precaution, up with assistance) Overall status at discharge: patient is progressing back to baseline - Discharge Instructions Instructions: Piperacillin/Tazobactam (Injection), Urinary Retention in Men ( GEN), Malnutrition (DC), Malnutrition (GEN), Sepsis (DC), Chronic Dysphagia (DC) , Chronic Dysphagia (GEN), Pneumonia (DC) Follow Up With: Priscilla Min MD [Primary Care Provider] - 03/03/16 10:45 am (F/u with pt 's pcp for hospital d/c f/u, go over home meds and f/u on aspiration pneumonia) - Diet and Activity Activity: resume usual activities as tolerated Diet: other (pureed/nectar thickened/ensure plus (aspiration precaution)) Hospital course: Mr. Alvarado is a 50 year old male with hx of MRDD and fragile x syndrome, admitted for aspiration pneumonia, this has been recurrent issue for him as he aspirates often at home, on last admission, family member decided not to place PEG tube because he like to eat, during this hospital stay he was started on vanco, zosyn and levaquin, after blood culture came back, it was deescalated to zosyn and he responded to well. Palliative was consulted and they spoke to family, they decided to con't home health with physical therapy, therefore he will be d/c to home today with HH and 4 more days of IV zosyn infusion at home. - Time Spent with Patient Total time spent providing and/or coordinating discharge services: - Constitutional Vitals: Temp Pulse Resp BP Pulse Ox 97.9 F 91 15 134/94 100 02/26/16 07:47 02/26/16 07:47 02/26/16 07:47 02/26/16 07:47 02/26/16 07:47 General appearance: Present: A&O X 0, no acute distress, underweight - Head Head exam: Present: atraumatic, normocephalic - Eye Eye exam: Present: PERRL, conjuntiva pink, sclera anicteric Pupils: Present: PERRL - Neck Neck exam general surgery: Present: supple, trachea midline. Absent: lymphadenopathy - Respiratory Respiratory exam: Present: CTAB. Absent: accessory muscle use, rales, rhonchi, wheezes - Cardiovascular Cardiovascular exam: Present: RRR, +S1, +S2. Absent: diastolic murmur, gallop, rubs, systolic murmur - GI/Abdominal GI/Abdominal exam: Present: normal bowel sounds, soft, no peritoneal signs. Absent: distended, tenderness - Extremities Exam Extremities exam: Present: warm, radial pulses palpable and symetrical. Absent : calf tenderness, cyanotic, pedal edema - Neurological Exam Neurological exam: Present: CN II-XII intact, no focal deficits. Absent: oriented X3, pronater drift, facial droop, speech deficit - Skin Skin exam: Present: dry, intact - VTE Documentation of Mechanical Device: Intermittent pneumatic compression device <Pedro Dunlap - Last Filed: 02/26/16 16:07> Date of Encounter: 02/26/16 - Discharge Diagnosis (1) Aspiration pneumonia Status: Acute Qualifiers: Aspiration pneumonia type: due to gastric secretions Laterality: bilateral Lung location: upper lobe of lung Qualified Code(s): J69.0 - Pneumonitis due to inhalation of food and vomit (2) Dysphagia Priority: Secondary Status: Chronic Qualifiers: Dysphagia type: oropharyngeal phase Qualified Code(s): R13.12 - Dysphagia, oropharyngeal phase (3) Unintentional weight loss Priority: Secondary Status: Chronic (4) Hypokalemia Priority: Secondary Status: Resolved (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 Alvarado is a 50 year old male - Time Spent with Patient Total time spent providing and/or coordinating discharge services: 39min - Constitutional Vitals: Temp Pulse Resp BP Pulse Ox 97.9 F 91 15 134/94 100 02/26/16 07:47 02/26/16 07:47 02/26/16 07:47 02/26/16 07:47 02/26/16 07:47 - Attending Attestation I examined this patient and my medical decision-making was reviewed with the Resident Physician on 02/26/16. I agree with the documented findings, disposition and treatment plan as described except to the extent set forth below. Mr. Alvarado is doing OK today. He seems to be more alert but still not eating or taking meds. He is to be discharged today. Exam Alert. Comfortable Heart reg Scattered rhonchi Abd soft Plan Pt stable for discharge today. Outpatient follow up and palliative care.
--- NOTE | 2016-02-26 08:04 | Physician Discharge Referral ---
<Naseem Wisdom - Last Filed: 02/26/16 10:34> Home Health/Hosp Referral Info Transfer to: Home Health Attending Provider: Dr. Dunlap Provider in Charge Post Discharge: PCP - Diagnosis (1) Aspiration pneumonia Priority: Primary Status: Acute (2) Mental retardation Status: Acute (3) Thrombocytopenia Status: Acute (4) Malnutrition Status: Acute (5) DVT prophylaxis Status: Acute - Respiratory Orders None Smoking Cessation: Smoking cessation has been advised. For more information, call the [place] Tobacco Quit Line at 0-614-BNVI-NOW. - Diet/Nutrition Diet/Nutrition Orders: Pureed (nectar thickened, ensure plus, aspiration precaution) - Activity Activity Orders: Ambulate (with wheelchair, up with assistance, fall precaution) - Services Needed Following services are medically necessary services: Nursing, Home Health Aide, Physical Therapy, Occupational Therapy, Home Infusion - Transfer Medications Prescriptions: Piperacillin/Tazobactam [Zosyn] 3.375 gm IVPB Q8HR 4 Days Home Medications: Benztropine Mesylate 2 mg PO TID 11/18/15 [History] Cetirizine HCl [Zyrtec] 10 mg PO DAILY 11/18/15 [History] Divalproex (24 HR) [Depakote ER (24 HR)] 500 mg PO BID 11/18/15 [History] Fluphenazine [Prolixin] 10 mg PO BID 11/18/15 [History] Hydroxyzine HCl 50 mg PO TID 11/18/15 [History] Melatonin 5 mg PO HS 11/18/15 [History] Omeprazole [PriLOSEC] 40 mg PO DAILY 11/18/15 [History] FLUoxetine HCl [Prozac] 60 mg PO DAILY #30 capsule 12/08/15 [Rx] Maltodextrin/Xanthan Gum [Thicken Up Clear Powder] 125 gm PO TIDAC #1 powder 03/23 [Rx] Diazepam [Valium] 5 mg PO HS 01/13/16 [History] Montelukast [Singulair] 10 mg PO HS 01/13/16 [History] Piperacillin/Tazobactam [Zosyn] 3.375 gm IVPB Q8HR 4 Days 02/26/16 [Rx] Allergies/Adverse Reactions: Allergies trazodone Adverse Reaction (Verified 08/06/15 16:44) See Comments excessive errection Certification: Further, I certify that my clinical findings support that this patient is homebound (i.e. absences from home require considerable and taxing effort and are for medical reasons or mu-ism services or infrequently or short duration when for other reasons) because:pt is having difficult time getting in/out of vehicle. Homebound Reason: Leaving home requires considerable and taxing effort due to condition Attestation: My signature below is to certify that this patient is under my care and that I, or nurse practitioner, or a physician's therapy assistant working with me, has a face-to -face encounter with this patient. 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 For more information, call the [place] Tobacco Quit Line at 2-144-OHAN-NOW. Certification: Further, I certify that my clinical findings support that this patient is homebound (i.e. absences from home require considerable and taxing effort and are for medical reasons or mu-ism services or infrequently or short duration when for other reasons) because: Attestation: My signature below is to certify that this patient is under my care and that I, or nurse practitioner, or a physician's therapy assistant working with me, has a face-to -face encounter with this patient.
[2016-02-26] MEDS: Loratadine 10 MG TABLET PO SCH (09:55)
[2016-02-26] MEDS: FLUoxetine 20 MG CAPSULE PO SCH (09:55)
[2016-02-26] MEDS: Piperacillin/Tazobactam 3.375 GM in D5% in Water (Mini-Bag+) 100 ML IVPB SCH (09:56)
[2016-02-26] MEDS: hydrOXYzine pamoate 25 MG CAPSULE PO SCH (09:56)
== END 2016-02-26 14:06 | disposition home health service (06) | DRG 137 ==
LOC: EMEROO 10:14 → 2NENU 10:14 → SUATTDRO 13:18 → 2NENU 14:13
PROVIDERS: ADMIT Internal Medicine; ATTEND Internal Medicine

== ENCOUNTER 2016-03-17 12:40 | Inpatient (IN) ==
--- NOTE | 2016-03-17 13:04 | Emergency Department Note ---
Disposition Clinical Impression: Pneumonia Qualifiers: Pneumonia type: due to unspecified organism Laterality: bilateral Lung location : lower lobe of lung Qualified Code(s): J18.9 - Pneumonia, unspecified organism Disposition: Admitted As Inpatient Condition: Good Referrals: Priscilla Min MD [Primary Care Provider] - Forms: Work/School Release, ED Satisfaction Letter Time of Disposition: 16:46 Abdominal Pain HPI - General Chief Complaint: ED Abdominal Pain Stated Complaint: Abd/Back Pain Time Seen by Provider: 03/17/16 12:52 Source: family, EMS Mode of arrival: EMS Nursing Notes Reviewed: Yes Vital Signs Reviewed: Yes - History of Present Illness HPI Narrative: 50-year-old who has a history of fragile X syndrome. Patient according to the sister gets pneumonia on a frequent basis and has required admissions in the past. Pt Subjective Complaint: abdominal pain Onset (ago): day(s) Consistency: constant Location: suprapubic Pain Severity: moderate Pain Scale: 6 Quality: aching Radiation: L flank, R flank Migration to: no migration Improves with: nothing Worsens with: nothing Associated symptoms: Denies: nausea, vomiting Treatments prior to arrival: none - Related Data Home Medications Medication Instructions Recorded Confirmed Benztropine Mesylate 2 mg PO TID 11/18/15 03/17/16 Cetirizine HCl [Zyrtec] 10 mg PO DAILY 11/18/15 03/17/16 Divalproex (24 HR) [Depakote ER 500 mg PO BID 11/18/15 03/17/16 (24 HR)] Fluphenazine [Prolixin] 10 mg PO BID 11/18/15 03/17/16 Hydroxyzine HCl 50 mg PO TID PRN 11/18/15 03/17/16 Melatonin 5 mg PO HS PRN 11/18/15 03/17/16 Omeprazole [PriLOSEC] 40 mg PO DAILY 11/18/15 03/17/16 Diazepam [Valium] 10 mg PO HS 01/13/16 03/17/16 Montelukast [Singulair] 10 mg PO HS 01/13/16 03/17/16 Azithromycin [Zithromax] 250 mg PO DAILY PRN 03/17/16 03/17/16 CloNIDine HCl [Clonidine HCl] 0.2 mg PO QPM 03/17/16 03/17/16 Previous Rx's Medication Instructions Recorded FLUoxetine HCl [Prozac] 60 mg PO DAILY #30 capsule 12/08/15 Allergies Allergy/AdvReac Type Severity Reaction Status Date / Time trazodone AdvReac See Verified 08/06/15 16:44 Comments Constitutional: Denies: fever, chills, weakness, weight change Eyes: Denies: eye pain, eye discharge, vision change ENT ED: Denies: ear pain, throat pain, dental pain, hearing loss, epistaxis, congestion, dysphagia Cardiovascular: Denies: chest pain, palpitations, dyspnea on exertion, edema, syncope Respiratory: Denies: cough, dyspnea, wheezes, hemoptysis, stridor Gastrointestinal: Reports: abdominal pain. Denies: nausea, vomiting, diarrhea, constipation, hematemesis, melena, hematochezia Genitourinary: Denies: urgency, dysuria, frequency, hematuria Musculoskeletal: Reports: back pain. Denies: neck pain, arthralgia, myalgia Integumentary: Denies: rash, abrasion, lesions Neurological: Denies: headache, weakness, numbness, paresthesias, confusion, abnormal gait, vertigo Psychiatric: Denies: anxiety, depression, suicidal thoughts, homicidal thoughts , auditory hallucinations, visual hallucinations Endocrine: Denies: fatigue Hematological/Lymphatic: Denies: easy bleeding, easy bruising Allergic/Immunologic: Denies: facial swelling, urticaria Abdominal Pain PMH - Past Medical History Medical history: Reports: asthma, GERD, other Male Surgical History: Reports: cholecystectomy Psychiatric history: Reports: bipolar, depression, schizophrenia, other - Social History Smoking status: Never smoker Alcohol use: Reports: none Drug use: Reports: none Physical Exam - General Limitations: other General appearance: alert, in distress - Head Head exam: atraumatic, normocephalic, normal inspection - Eye Eye exam: Present: normal appearance, PERRL, EOMI - ENT ENT exam: normal exam, normal oropharynx, mucous membranes moist - Neck Neck exam: Present: normal inspection, full ROM, trachea midline - Chest Chest inspection: Present: normal inspection, symmetric chest wall rise - Respiratory Respiratory exam: Present: normal lung sounds bilaterally - Cardiovascular Cardiovascular exam: Present: regular rate, normal rhythm, normal heart sounds - Abdominal Exam Abdominal exam: Present: tenderness. Absent: guarding, rebound - Extremities Exam Extremities exam: Present: normal inspection, full ROM. Absent: tenderness, pedal edema - Expanded Lower Extremity Exam Neurovascular/Tendon exam: Absent: motor deficit, sensory deficit, tendon deficit Gait: observed and normal - Back Exam Back exam: Present: normal inspection, full ROM. Absent: tenderness - Neurological Exam Neurological exam: Present: alert, oriented X3 - Psychiatric Psychiatric exam: Present: normal affect, normal mood - Skin Skin exam: Present: warm, dry, intact, normal color Course - Reevaluation(s) Reevaluation #1: 50-year-old comes in with cough had previous pneumonia with some increasing confusion. CT does show bilateral pneumonia. Time: 16:45 - Consultations Consultation #1: Discussed with , it. Time: 16:47 Vital Signs Temperature 98.2 F 03/17/16 12:44 Pulse Rate 92 03/17/16 12:44 Respiratory Rate 20 03/17/16 12:44 Blood Pressure 108/67 03/17/16 12:44 O2 Sat by Pulse Oximetry 97 03/17/16 12:44 Temperature 98.2 F 03/17/16 12:44 Pulse Rate 95 03/17/16 16:41 Respiratory Rate 20 03/17/16 16:41 Blood Pressure 98/61 03/17/16 16:41 O2 Sat by Pulse Oximetry 100 03/17/16 16:41 Oxygen Delivery Oxygen Delivery Room Air Abdominal Pain - Lab Data Result diagrams: 03/17/16 14:20 03/17/16 14:20 Lab Results 03/17/16 03/17/16 03/17/16 Range/Units 14:20 14:20 14:20 WBC 13.5 H (4.3-11.1) K/mcL RBC 4.81 (4.19-5.50) M/mcL Hgb 14.1 (12.9-16.9) g/dL Hct 41.7 (37.5-50.1) % MCV 86.7 (83.0-100.0) fL MCH 29.3 (28.0-33.3) pg MCHC 33.8 (31.6-35.5) g/dL RDW 14.3 (11.5-14.5) % Plt Count 124 L (140-400) K/mcL MPV 11.2 (9.4-12.4) fL Seg Neutrophils % 90.0 % Band Neutrophils % 5.0 H (0-4) % Lymphocytes % 2.0 % Monocytes % 2.0 % Metamyelocytes % 1.0 H (0) % Neutrophils # 12.8 H (1.6-8.9) K/mcL Lymphocytes # 0.3 L (0.6-4.6) K/mcL Monocytes # 0.3 (0.0-1.3) K/mcL Platelet Estimate Slight Decrease L (Normal) Large Platelets Present A (Not Present) Sodium 138 (136-145) mEq/L Potassium 4.5 (3.5-4.5) mEq/L Chloride 103 (98-109) mEq/L Carbon Dioxide 25 (19-29) mEq/L BUN 11 (8-26) mg/dL Creatinine 0.67 L (0.72-1.25) mg/dL Est GFR ( Amer) > 60 (> 60) Est GFR (Non-Af Amer) > 60 (> 60) BUN/Creatinine Ratio 16 (6-26) Glucose 77 (70-99) mg/dL Calculated Osmolality 284 (280-300) Lactic Acid 3.0 H (0.5-2.2) mmol/L Calcium 9.2 (8.6-10.8) mg/dL Total Bilirubin 0.9 (0.2-1.2) mg/dL Direct Bilirubin 0.4 (0.0-0.5) mg/dL Indirect Bilirubin 0.5 (0.0-1.2) mg/dL AST 36 H (5-34) Units/L ALT 67 H (0-55) Units/L Alkaline Phosphatase 155 H (38-126) Units/L Serum Total Protein 5.9 L (6.0-8.3) g/dL Albumin 2.5 L (3.5-5.0) g/dL Globulin 3.4 (2.4-3.5) g/dL Albumin/Globulin Ratio 0.7 L (1.1-2.2) Amylase 12 L (25-125) Units/L Lipase < 4 L (8-78) Units/L Urine Color (Yellow) Urine Clarity (Clear) Urine pH (5.0-8.0) pH Units Ur Specific [place] (1.010-1.025) Urine Protein (Neg-Trace) mg/dL Urine Glucose (UA) (Normal) mg/dL Urine Ketones (Negative) mg/dL Urine Blood (Negative) Urine Nitrite (Negative) Urine Bilirubin (Negative) Urine Urobilinogen (Normal) mg/dL Ur Leukocyte Esterase (Negative) Urine Microscopic RBC (0-3) per hpf Urine Microscopic WBC (0-3) per hpf Ur Squamous Epith Cells (None-Few) per lpf Amorphous Sediment (Few) Urine Bacteria (None-Few) per hpf Hyaline Casts Urine Mucus (Few) Ur Culture Indicated? (NO) 03/17/16 Range/Units 15:02 WBC (4.3-11.1) K/mcL RBC (4.19-5.50) M/mcL Hgb (12.9-16.9) g/dL Hct (37.5-50.1) % MCV (83.0-100.0) fL MCH (28.0-33.3) pg MCHC (31.6-35.5) g/dL RDW (11.5-14.5) % Plt Count (140-400) K/mcL MPV (9.4-12.4) fL Seg Neutrophils % % Band Neutrophils % (0-4) % Lymphocytes % % Monocytes % % Metamyelocytes % (0) % Neutrophils # (1.6-8.9) K/mcL Lymphocytes # (0.6-4.6) K/mcL Monocytes # (0.0-1.3) K/mcL Platelet Estimate (Normal) Large Platelets (Not Present) Sodium (136-145) mEq/L Potassium (3.5-4.5) mEq/L Chloride (98-109) mEq/L Carbon Dioxide (19-29) mEq/L BUN (8-26) mg/dL Creatinine (0.72-1.25) mg/dL Est GFR ( Amer) (> 60) Est GFR (Non-Af Amer) (> 60) BUN/Creatinine Ratio (6-26) Glucose (70-99) mg/dL Calculated Osmolality (280-300) Lactic Acid (0.5-2.2) mmol/L Calcium (8.6-10.8) mg/dL Total Bilirubin (0.2-1.2) mg/dL Direct Bilirubin (0.0-0.5) mg/dL Indirect Bilirubin (0.0-1.2) mg/dL AST (5-34) Units/L ALT (0-55) Units/L Alkaline Phosphatase (38-126) Units/L Serum Total Protein (6.0-8.3) g/dL Albumin (3.5-5.0) g/dL Globulin (2.4-3.5) g/dL Albumin/Globulin Ratio (1.1-2.2) Amylase (25-125) Units/L Lipase (8-78) Units/L Urine Color Dark Yellow (Yellow) Urine Clarity Cloudy A (Clear) Urine pH 7.5 (5.0-8.0) pH Units Ur Specific [place] 1.016 (1.010-1.025) Urine Protein Negative (Neg-Trace) mg/dL Urine Glucose (UA) Normal (Normal) mg/dL Urine Ketones Trace H (Negative) mg/dL Urine Blood Negative (Negative) Urine Nitrite Negative (Negative) Urine Bilirubin Negative (Negative) Urine Urobilinogen Normal (Normal) mg/dL Ur Leukocyte Esterase Negative (Negative) Urine Microscopic RBC 0-3 (0-3) per hpf Urine Microscopic WBC 0-3 (0-3) per hpf Ur Squamous Epith Cells Many H (None-Few) per lpf Amorphous Sediment Few (Few) Urine Bacteria Few (None-Few) per hpf Hyaline Casts Test Not Performed Urine Mucus Few (Few) Ur Culture Indicated? NO (NO)
[2016-03-17] MEDS ORDERED: 0.9 % Sodium Chloride 1,000 ML IVC ONE (13:05)
[2016-03-17 14:37] LABS: Hematocrit 41.7 % (37.5-50.1); Hemoglobin 14.1 g/dL (12.9-16.9); Lymphocytes # 0.3 K/mcL (0.6-4.6); Mean Corpuscular HGB Conc 33.8 g/dL (31.6-35.5); Mean Corpuscular Hemoglobin 29.3 pg (28.0-33.3); Mean Corpuscular Volume 86.7 fL (83.0-100.0); Mean Platelet Volume 11.2 fL (9.4-12.4); Platelet Count 124 K/mcL (140-400); Red Blood Count 4.81 M/mcL (4.19-5.50); Red Cell Distribution Width 14.3 % (11.5-14.5)
[2016-03-17 14:51] LABS: Alanine Aminotransferase 67 Units/L (0-55); Albumin 2.5 g/dL (3.5-5.0); Albumin/Globulin Ratio 0.7 (1.1-2.2); Alkaline Phosphatase 155 Units/L (38-126); Amylase 12 Units/L (25-125); Aspartate Amino Transferase 36 Units/L (5-34); BUN/Creatinine Ratio 16 (6-26); Bilirubin,Direct 0.4 mg/dL (0.0-0.5); Bilirubin,Indirect 0.5 mg/dL (0.0-1.2); Bilirubin,Total 0.9 mg/dL (0.2-1.2); Blood Urea Nitrogen 11 mg/dL (8-26); Calcium 9.2 mg/dL (8.6-10.8); Carbon Dioxide 25 mEq/L (19-29); Chloride 103 mEq/L (98-109); Globulin 3.4 g/dL (2.4-3.5); Glucose 77 mg/dL (70-99); Osmolality,Calculated 284 (280-300); Potassium 4.5 mEq/L (3.5-4.5); Sodium 138 mEq/L (136-145); Total Protein 5.9 g/dL (6.0-8.3); eGFR For African Americans > 60 (> 60); eGFR For Non-African Americans > 60 (> 60)
[2016-03-17 14:53] LABS: Lipase < 4 Units/L (8-78)
[2016-03-17 14:55] LABS: Large Platelets Present (Not Present); Monocytes # 0.3 K/mcL (0.0-1.3); Neutrophils # 12.8 K/mcL (1.6-8.9); Platelet Estimate Slight Decrease (Normal)
[2016-03-17 15:11] LABS: Bilirubin,Urine Negative (Negative); Blood,Urine Negative (Negative); Clarity,Urine Cloudy (Clear); Color,Urine Dark Yellow (Yellow); Glucose,Urine (UA) Normal (Normal); Ketones,Urine Trace mg/dL (Negative); Leukocyte Esterase,Urine Negative (Negative); Nitrite,Urine Negative (Negative); PH,Urine 7.5 pH Units (5.0-8.0); Protein,Urine Negative (Neg-Trace); Specific Gravity,Urine 1.016 (1.010-1.025); Urobilinogen,Urine Normal (Normal)
[2016-03-17 15:13] LABS: RBC,Urine 0-3 per hpf (0-3); Squamous Epithelial Cell,Urine Many per lpf (None-Few); WBC,Urine 0-3 per hpf (0-3)
[2016-03-17] MEDS ORDERED: Piperacillin/Tazobactam 3.375 GM in D5% in Water (Mini-Bag+) 100 ML IVPB ONE (15:23)
[2016-03-17 15:32] LABS: Mucus,Urine Few (Few)
[2016-03-17 15:35] LABS: Bacteria,Urine Few per hpf (None-Few)
[2016-03-17 15:36] LABS: Amorphous Sediment,Urine Few (Few)
[2016-03-17] MEDS ORDERED: Naloxone 0.4 MG/ML INJ IVP PRN (18:42)
--- NOTE | 2016-03-17 19:02 | Internal Med History&Physical ---
Date of Encounter: 03/17/16 Time of Encounter: 18:00 Assessment and Plan (1) HCAP (healthcare-associated pneumonia) Current visit: No Status: Acute Patient has just been discharged from hospital. With elevated WBC. Chest x- ray showed pneumonia bilaterally. Consider healthcare associated pneumonia. - We will place pt on vancomycin, cefepime, Levaquin. - Patient's oxygen saturation 95-97% in room air. In no acute respiratory distress. We will place nasal cannula oxygen 2 L. - Continue pulse oximetry monitoring. - Patient has history of aspiration, he just did swallow evaluation on 02/22/16. Placed him on nectar thickened liquid diet per swallow evaluation. Aspiration precaution. - Check sputum culture, Legionella Ag, and mycoplasm ab. Patient is at high risk because of his vancomycin, need close monitoring (2) DVT prophylaxis Current visit: No Status: Acute Lovenox subcutaneous (3) Bipolar 1 disorder Current visit: No Status: Acute Continue home psych medications (4) Severe protein-calorie malnutrition Current visit: No Status: Chronic Nutrition consult Internal Medicine - H&P: HPI Chief complaint: Fever and cough Admitted From: Home Plans for Post Hospital Care: Home History of present illness: Mr. Alvarado is a 50 year old male with a history of schizoaffective disorder presents to ER for abdominal pain, fever, and cough. Patient is mentally challenged and the history is from his sister Ms Nasima Alvarado. Patient has a cough for about 1 month and was recently hospitalized for pneumonia. Since this morning, patient has a fever, chills, increased cough with sputum. Patient denies chest pain, shortness of breath, nausea, vomiting, or diarrhea. He complained his "belly hurts". Patient was breathing to ER. ER abdominal CAT scan has been done, result is unremarkable. Chest x-ray shows bilateral pneumonia. Patient was admitted as a healthcare associated pneumonia. I discussed Ms Nasima Anderson and patient's another sister and guardian Ms Leslie Parnell regarding CODE STATUS. And I was confirmed that patient is DNR/DNI by his both sisters. Past Med Surg Social Fam HX - Past Medical History Medical history: asthma, GERD, other Psychiatric history: bipolar, depression, schizophrenia, other - Past Surgical History Surgical History: non-contributory - Social History Smoking Status: Never smoker Smokeless Tobacco Status: No Alcohol use: none Drug use: none Internal Medicine - H&P: Meds Benztropine Mesylate 2 mg PO TID 11/18/15 [History] Cetirizine HCl [Zyrtec] 10 mg PO DAILY 11/18/15 [History] Divalproex (24 HR) [Depakote ER (24 HR)] 500 mg PO BID 11/18/15 [History] Fluphenazine [Prolixin] 10 mg PO BID 11/18/15 [History] Hydroxyzine HCl 50 mg PO TID PRN 11/18/15 [History] Melatonin 5 mg PO HS PRN 11/18/15 [History] Omeprazole [PriLOSEC] 40 mg PO DAILY 11/18/15 [History] FLUoxetine HCl [Prozac] 60 mg PO DAILY #30 capsule 12/08/15 [Rx] Diazepam [Valium] 10 mg PO HS 01/13/16 [History] Montelukast [Singulair] 10 mg PO HS 01/13/16 [History] Azithromycin [Zithromax] 250 mg PO DAILY PRN 03/17/16 [History] CloNIDine HCl [Clonidine HCl] 0.2 mg PO QPM 03/17/16 [History] Allergies trazodone Adverse Reaction (Verified 08/06/15 16:44) See Comments excessive errection All Systems PM: A 10-system review of systems was performed and is negative for pertinent findings except as documented above in the HPI. - Constitutional Vitals: Temp Pulse Resp BP Pulse Ox 98.2 F 91 20 96/61 100 03/17/16 12:44 03/17/16 17:36 03/17/16 18:04 03/17/16 18:04 03/17/16 17:36 General appearance: Present: cachectic, A&O X 0, no acute distress. Absent: answers questions appropriately - Head Head exam: Present: atraumatic, normocephalic - Eye Eye exam: Present: PERRL, conjuntiva pink, sclera anicteric Pupils: Present: PERRL - Neck Neck exam general surgery: Present: supple, trachea midline. Absent: lymphadenopathy - Respiratory Respiratory exam: Present: CTAB, rhonchi (Scattered rhonchi bilaterally). Absent: accessory muscle use, rales, wheezes - Cardiovascular Cardiovascular exam: Present: RRR, +S1, +S2. Absent: diastolic murmur, gallop, rubs, systolic murmur - GI/Abdominal GI/Abdominal exam: Present: normal bowel sounds, soft, no peritoneal signs. Absent: distended, tenderness - Extremities Exam Extremities exam: Present: warm, radial pulses palpable and symetrical. Absent : calf tenderness, cyanotic, pedal edema - Neurological Exam Neurological exam: Present: CN II-XII intact, oriented X3, no focal deficits. Absent: pronater drift, facial droop, speech deficit - Skin Skin exam: Present: dry, intact Internal Med - H&P Results - Labs CBC & Chem 7: 03/17/16 14:20 03/17/16 14:20
[2016-03-17] MEDS ORDERED: Melatonin 3 MG TABLET PO PRN (19:07)
[2016-03-17] MEDS ORDERED: hydrOXYzine pamoate 25 MG CAPSULE PO PRN (19:07)
[2016-03-17] MEDS: Vancomycin 750 MG in D5% in Water 250 ML IVPB SCH (20:47)
[2016-03-17] MEDS: 0.9 % Sodium Chloride 1,000 ML IVC SCH (20:49)
[2016-03-17] MEDS: Acetaminophen 325 MG TABLET PO PRN (20:51)
[2016-03-17] MEDS: Divalproex (24 HR) 500 MG TABLET PO SCH (20:56)
[2016-03-17] MEDS: cloNIDine HCl 0.1 MG TABLET PO SCH (20:56)
[2016-03-18] MEDS: *HR* Enoxaparin 30 MG/0.3 ML SYRINGE SQ SCH (05:53)
[2016-03-18] MEDS: Cefepime HCl 1,000 MG in D5% in Water (Mini-Bag+) 100 ML IVPB SCH ×2 (06:08→16:49)
[2016-03-18 06:57] LABS: Mean Corpuscular Volume 87.7 fL (83.0-100.0)
[2016-03-18 07:00] LABS: Hematocrit 34.9 % (37.5-50.1); Hemoglobin 11.9 g/dL (12.9-16.9); Immature Platelets 6.7 % (1.1-6.1); Mean Corpuscular HGB Conc 34.1 g/dL (31.6-35.5); Mean Corpuscular Hemoglobin 29.9 pg (28.0-33.3); Mean Platelet Volume 11.2 fL (9.4-12.4); Red Blood Count 3.98 M/mcL (4.19-5.50); Red Cell Distribution Width 14.3 % (11.5-14.5)
[2016-03-18 07:10] LABS: BUN/Creatinine Ratio 16 (6-26); Blood Urea Nitrogen 10 mg/dL (8-26); Calcium 8.7 mg/dL (8.6-10.8); Carbon Dioxide 25 mEq/L (19-29); Chloride 107 mEq/L (98-109); Glucose 78 mg/dL (70-99); Osmolality,Calculated 284 (280-300); Potassium 3.9 mEq/L (3.5-4.5); Sodium 138 mEq/L (136-145); eGFR For African Americans > 60 (> 60); eGFR For Non-African Americans > 60 (> 60)
[2016-03-18 07:34] LABS: Platelet Count 93 K/mcL (140-400)
[2016-03-18 07:44] LABS: Lymphocytes # 0.9 K/mcL (0.6-4.6); Monocytes # 0.3 K/mcL (0.0-1.3); Neutrophils # 6.1 K/mcL (1.6-8.9)
[2016-03-18] MEDS: Vancomycin 750 MG in D5% in Water 250 ML IVPB SCH ×2 (08:28→18:20)
[2016-03-18] MEDS: Levofloxacin 500 MG/100 ML 500 MG/100 ML BAG IVPB SCH ×2 (08:29)
[2016-03-18] MEDS: Divalproex (24 HR) 500 MG TABLET PO SCH ×2 (08:30→21:29)
[2016-03-18] MEDS: FLUoxetine 20 MG CAPSULE PO SCH (08:30)
[2016-03-18] MEDS: Loratadine 10 MG TABLET PO SCH (08:30)
[2016-03-18] MEDS ORDERED: Milk and Molasses Enema 200 ML RC ONE (11:30)
[2016-03-18] MEDS: 0.9 % Sodium Chloride 1,000 ML IVC SCH (12:06)
--- NOTE | 2016-03-18 12:53 | Internal Med Progress Note ---
Date of Encounter: 03/18/16 Time of Encounter: 12:37 - Assessment and plan (1) Aspiration pneumonia Current Visit: No Status: Acute Assessment and plan: Patient has just been discharged from hospital. With elevated WBC on admission. Chest x-ray showed pneumonia bilaterally. this is most likely 2/2 aspiration pneumonia as he is continuously being fed. he does appear to be high risk for aspiration pneumonia even with nectar thick liquid diet. family still wants to continue the feeds, discussed with palliative on last admns, do not want tubes at this time. will reconuslt palliative again. leucocytosis has improved. no fever, improved clinically. urine legionella is negative, will stop levoflox. continue Vanco and Zosyn for 1 more day Qualifiers: Aspiration pneumonia type: unspecified Laterality: bilateral Lung location: lower lobe of lung Qualified Code(s): J69.0 - Pneumonitis due to inhalation of food and vomit (2) Constipation Current Visit: No Status: Acute Assessment and plan: abdominal CAT scan shows moderate stool in the colon and does not move bowels regularly will order enema and lactulose. Qualifiers: Constipation type: slow transit constipation Qualified Code(s): K59.01 - Slow transit constipation (3) Goals of care, counseling/discussion Current Visit: No Status: Acute Assessment and plan: consult palliative. he has risk for recurrent aspiration pneumonia as long as he is being fed. 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 History of MDRD, nonverbal. History is taken from the family member. Does not complain of any abdominal pain, has been admitted for possible worsening pneumonia, recently treated for pneumonia and family aware of having aspiration pneumonia,still want to continnue feeding the patient and do not want feeding tubes. no fever today, as per the family, cough is better. CT abd with no acute pathology. - Constitutional Vitals: Temp Pulse Resp BP Pulse Ox 97.3 F L 102 16 100/68 95 03/18/16 11:28 03/18/16 11:28 03/18/16 11:28 03/18/16 11:28 03/18/16 11:28 General appearance: Present: cachectic, A&O X 0, no acute distress. Absent: answers questions appropriately Exam: - Head Head exam: Present: atraumatic, normocephalic - Eye Eye exam: Present: PERRL, conjuntiva pink, sclera anicteric Pupils: Present: PERRL - Neck Neck exam general surgery: Present: supple, trachea midline. Absent: lymphadenopathy - Respiratory Respiratory exam: Present: CTAB, . Absent: accessory muscle use, rales, wheezes - Cardiovascular Cardiovascular exam: Present: RRR, +S1, +S2. Absent: diastolic murmur, gallop, rubs, systolic murmur - GI/Abdominal GI/Abdominal exam: Present: normal bowel sounds, soft, no peritoneal signs. Absent: distended, tenderness - Extremities Exam Extremities exam: Present: warm, radial pulses palpable and symetrical. Absent : calf tenderness, cyanotic, pedal edema - Neurological Exam Neurological exam: Present: CN II-XII intact, oriented X3, no focal deficits. Absent: pronater drift, facial droop, speech deficit - Skin Skin exam: Present: dry, intact Internal Medicine: Result - Labs CBC & Chem 7: 03/18/16 06:48 03/18/16 06:48 Labs: Short CBC 03/18/16 Range/Units 06:48 WBC 7.2 (4.3-11.1) K/mcL Hgb 11.9 L D (12.9-16.9) g/dL Hct 34.9 L (37.5-50.1) % Plt Count 93 L (140-400) K/mcL Neutrophils # 6.1 (1.6-8.9) K/mcL BMP 03/18/16 06:48 Sodium 138 Potassium 3.9 Chloride 107 Carbon Dioxide 25 BUN 10 Creatinine 0.62 L Glucose 78 Calcium 8.7 Consult Discharge Plan - Plan Referrals: Priscilla Min MD [Primary Care Provider] -
[2016-03-18] MEDS: cloNIDine HCl 0.1 MG TABLET PO SCH (16:49)
[2016-03-18] MEDS: Acetaminophen 325 MG TABLET PO PRN (17:09)
[2016-03-18] MEDS: diazePAM 10 MG TABLET PO SCH (21:29)
[2016-03-18] MEDS: Lactulose Oral Soln 20 GM/30 ML UDC PO SCH (21:29)
[2016-03-19] MEDS: *HR* Enoxaparin 30 MG/0.3 ML SYRINGE SQ SCH ×2 (05:05→06:19)
[2016-03-19] MEDS: 0.9 % Sodium Chloride 1,000 ML IVC SCH ×3 (05:06→23:49)
[2016-03-19] MEDS: Cefepime HCl 1,000 MG in D5% in Water (Mini-Bag+) 100 ML IVPB SCH (05:07)
[2016-03-19] MEDS ORDERED: Aminoglycoside Consult 1 EACH MC ONE (08:22)
[2016-03-19] MEDS: Vancomycin 750 MG in D5% in Water 250 ML IVPB SCH (08:22)
[2016-03-19] MEDS: Lactulose Oral Soln 20 GM/30 ML UDC PO SCH ×2 (08:23→20:30)
[2016-03-19] MEDS: Loratadine 10 MG TABLET PO SCH (08:23)
[2016-03-19 08:24] LABS: Basophils % 0.2 %; Immature Granulocytes % 0.2 % (0-4); Mean Platelet Volume 11.6 fL (9.4-12.4)
[2016-03-19] MEDS: Divalproex (24 HR) 500 MG TABLET PO SCH ×2 (08:24→20:23)
[2016-03-19] MEDS: FLUoxetine 20 MG CAPSULE PO SCH (08:24)
[2016-03-19 08:26] LABS: Eosinophils # 0.1 K/mcL (0.0-0.6); Eosinophils % 1.1 %; Hematocrit 34.5 % (37.5-50.1); Hemoglobin 11.6 g/dL (12.9-16.9); Immature Platelets 5.2 % (1.1-6.1); Lymphocytes # 1.1 K/mcL (0.6-4.6); Lymphocytes % 24.7 %; Mean Corpuscular HGB Conc 33.6 g/dL (31.6-35.5); Mean Corpuscular Hemoglobin 29.4 pg (28.0-33.3); Mean Corpuscular Volume 87.3 fL (83.0-100.0); Monocytes # 0.3 K/mcL (0.0-1.3); Monocytes % 6.4 %; Platelet Count 85 K/mcL (140-400); Red Blood Count 3.95 M/mcL (4.19-5.50); Red Cell Distribution Width 14.5 % (11.5-14.5); Segmented Neutrophils % 67.4 %
[2016-03-19 08:28] LABS: Platelet Estimate Decreased (Normal)
[2016-03-19 08:39] LABS: BUN/Creatinine Ratio 12 (6-26); Blood Urea Nitrogen 7 mg/dL (8-26); Calcium 8.6 mg/dL (8.6-10.8); Carbon Dioxide 24 mEq/L (19-29); Chloride 110 mEq/L (98-109); Glucose 66 mg/dL (70-99); Osmolality,Calculated 288 (280-300); Potassium 3.5 mEq/L (3.5-4.5); Sodium 141 mEq/L (136-145); eGFR For African Americans > 60 (> 60); eGFR For Non-African Americans > 60 (> 60)
--- NOTE | 2016-03-19 12:51 | Internal Med Progress Note ---
Date of Encounter: 03/19/16 Time of Encounter: 12:49 - Assessment and plan (1) Aspiration pneumonia Current Visit: No Status: Acute Assessment and plan: Patient has just been discharged from hospital. With elevated WBC on admission. Chest x-ray showed pneumonia bilaterally. this is most likely 2/2 aspiration pneumonia as he is continuously being fed. he does appear to be high risk for aspiration pneumonia even with nectar thick liquid diet. family still wants to continue the feeds, discussed with palliative on last admns, do not want tubes at this time. will reconsult palliative again. leucocytosis has improved. no fever, improved clinically. urine legionella is negative, will stop levoflox. will stop vanco and zosyn as blood cx is negative will start clindamycin. Qualifiers: Aspiration pneumonia type: unspecified Laterality: bilateral Lung location: lower lobe of lung Qualified Code(s): J69.0 - Pneumonitis due to inhalation of food and vomit (2) Constipation Current Visit: No Status: Acute Assessment and plan: abdominal CAT scan shows moderate stool in the colon and does not move bowels regularly s/p enema and lactulose. small bowel movement yesterday. will continue the lactulose. Qualifiers: Constipation type: slow transit constipation Qualified Code(s): K59.01 - Slow transit constipation (3) Goals of care, counseling/discussion Current Visit: No Status: Acute Assessment and plan: he has risk for recurrent aspiration pneumonia as long as he is being fed. 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 History of MRDD, nonverbal. History is taken from the family member. Does not complain of any abdominal pain, has been admitted for possible worsening pneumonia, recently treated for pneumonia and family aware of having aspiration pneumonia,still want to continnue feeding the patient and do not want feeding tubes. no fever today, as per the family, cough is better but reports that he is very weak today and not eating well. CT abd with no acute pathology. - Constitutional Vitals: Temp Pulse Resp BP Pulse Ox 97.5 F L 67 16 124/81 99 03/19/16 11:49 03/19/16 11:49 03/19/16 11:49 03/19/16 11:49 03/19/16 11:49 General appearance: Present: cachectic, A&O X 0, no acute distress. Absent: answers questions appropriately Exam: - Head Head exam: Present: atraumatic, normocephalic - Eye Eye exam: Present: PERRL, conjuntiva pink, sclera anicteric Pupils: Present: PERRL - Neck Neck exam general surgery: Present: supple, trachea midline. Absent: lymphadenopathy - Respiratory Respiratory exam: Present: CTAB, . Absent: accessory muscle use, rales, wheezes - Cardiovascular Cardiovascular exam: Present: RRR, +S1, +S2. Absent: diastolic murmur, gallop, rubs, systolic murmur - GI/Abdominal GI/Abdominal exam: Present: normal bowel sounds, soft, no peritoneal signs. Absent: distended, tenderness - Extremities Exam Extremities exam: Present: warm, radial pulses palpable and symetrical. Absent : calf tenderness, cyanotic, pedal edema - Neurological Exam Neurological exam: Present: CN II-XII intact, oriented X3, no focal deficits. Absent: pronater drift, facial droop, speech deficit - Skin Skin exam: Present: dry, intact Internal Medicine: Result - Labs CBC & Chem 7: 03/19/16 08:14 03/19/16 08:14 Labs: Short CBC 03/19/16 Range/Units 08:14 WBC 4.4 (4.3-11.1) K/mcL Hgb 11.6 L (12.9-16.9) g/dL Hct 34.5 L (37.5-50.1) % Plt Count 85 L (140-400) K/mcL Neutrophils # 3.0 (1.6-8.9) K/mcL BMP 03/19/16 08:14 Sodium 141 Potassium 3.5 Chloride 110 H Carbon Dioxide 24 BUN 7 L Creatinine 0.57 L Glucose 66 L Calcium 8.6 Consult Discharge Plan - Plan Referrals: Priscilla Min MD [Primary Care Provider] -
[2016-03-19] MEDS: Clindamycin 600 MG/50 ML 600 MG/50 ML IV.SOLN IVPB SCH ×2 (15:06→23:45)
[2016-03-19] MEDS: cloNIDine HCl 0.1 MG TABLET PO SCH (18:54)
[2016-03-19] MEDS: diazePAM 10 MG TABLET PO SCH (20:23)
[2016-03-20] MEDS: *HR* Enoxaparin 30 MG/0.3 ML SYRINGE SQ SCH (05:29)
[2016-03-20] MEDS: FLUoxetine 20 MG CAPSULE PO SCH (08:38)
[2016-03-20] MEDS: Loratadine 10 MG TABLET PO SCH (08:39)
[2016-03-20] MEDS: Clindamycin 600 MG/50 ML 600 MG/50 ML IV.SOLN IVPB SCH ×2 (08:40→16:30)
[2016-03-20] MEDS: Divalproex (24 HR) 500 MG TABLET PO SCH ×2 (08:40→20:35)
[2016-03-20] MEDS: Lactulose Oral Soln 20 GM/30 ML UDC PO SCH ×2 (08:51→20:36)
--- NOTE | 2016-03-20 12:39 | Palliative - Consult Note ---
Date of Encounter: 03/20/16 Time of Encounter: 10:00 - Assessment and Plan (1) Pneumonia Current Visit: Yes Status: Acute Assessment and plan: The patient is being treated for operable aspiration pneumonitis. The patient appears to be at high risk work continued spray should as he is requiring a nectar thick to thicker diet. Family is considering PEG tube, but more for supplementation rather than substitution. Lantus to continue current antibiotics. I count is now normal, Legionella is negative and blood cultures are negative. Qualifiers: Pneumonia type: aspiration pneumonia Aspiration pneumonia type: unspecified Laterality: bilateral Lung location: lower lobe of lung Qualified Code(s): J69.0 - Pneumonitis due to inhalation of food and vomit (2) Aspiration pneumonia Current Visit: No Status: Acute Assessment and plan: As above. The patient's family is considering PEG tube at this time. In the past that have been anti-PEG tube, may be changing with that idea of increasing supplementation of diet. She is aspiration risk is high due to the fact he is requiring a thicker than honey thick diet at this time. Mostly a pudding-like consistency. 2 new current antibiotics. Per hospitalist team. Qualifiers: Aspiration pneumonia type: unspecified Laterality: bilateral Lung location: lower lobe of lung Qualified Code(s): J69.0 - Pneumonitis due to inhalation of food and vomit (3) Constipation Current Visit: No Status: Acute Assessment and plan: Last bowel movement on the 11th will place patient on a bowel regimen. Qualifiers: Constipation type: slow transit constipation Qualified Code(s): K59.01 - Slow transit constipation (4) Goals of care, counseling/discussion Current Visit: No Status: Acute Assessment and plan: CODE STATUS currently is DNR CCA, DNI as of care for the patient to be able to return home where he lives with his sister. His primary caregiver. At this time patient's family does not feel that he is appropriate for hospice however we did discuss this at length and will let us know what they feel is appropriate for the patient. They are also discussing with her nothing wish to proceed with PEG tube. In the past they have been interested in the PEG tube, however at this time they are considering it for the possibility of supplementation. Also place a nutrition consult to help with [place] for increasing his by mouth intake. Palliative-CN HPI - Data of Consult Patient: known to practice within the last 3 years Requesting Physician: Maksim Cunninhgam Primary Care Provider: Priscilla Min - Consult Narrative Palliative Care/Comfort Measures: Palliative care Reason for consult: Goals of care History of present illness: Mr. Alvarado is a 50 year old male With a history of psychiatric disorders well as being mentally challenged him with abdominal pain and fever cough and shortness of breath. Patient had recently been in the hospital, was diagnosed with pneumonia that was felt to be healthcare associated due to the need to his recent hospitalization. He was complaining of upper abdominal pain which she cannot quantify for me fever and chills with increased cough and sputum lately he denied shortness of breath however. It is actually had some. However no nausea vomiting or diarrhea. It has since been felt that the cause of the pneumonia was aspiration due to his difficulty with swallowing. Family had not wanted any tube in the past. However this point in time they are suturing it more for supplementation. The patient does value eating at a very high level. Family is concerned about not being able to eat enough. That recently are considering PEG tube at this time. DC the assessment and plan. Time of this consultation patient had no complaints of. Patient was primarily nonverbal at this time. CC: Maksim Cunningham Shortness of breath Past Med Surg Social Fam HX - Past Medical History Medical history: asthma, GERD, other Psychiatric history: bipolar, depression, schizophrenia, other - Past Surgical History Surgical History: non-contributory - Social History Smoking Status: Never smoker Smokeless Tobacco Status: No Alcohol use: none Drug use: none - Family History Mother History Unknown: Yes Medications and Allergies Benztropine Mesylate 2 mg PO TID 11/18/15 [History] Cetirizine HCl [Zyrtec] 10 mg PO DAILY 11/18/15 [History] Divalproex (24 HR) [Depakote ER (24 HR)] 500 mg PO BID 11/18/15 [History] Fluphenazine [Prolixin] 10 mg PO BID 11/18/15 [History] Hydroxyzine HCl 50 mg PO TID PRN 11/18/15 [History] Melatonin 5 mg PO HS PRN 11/18/15 [History] Omeprazole [PriLOSEC] 40 mg PO DAILY 11/18/15 [History] FLUoxetine HCl [Prozac] 60 mg PO DAILY #30 capsule 12/08/15 [Rx] Diazepam [Valium] 10 mg PO HS 01/13/16 [History] Montelukast [Singulair] 10 mg PO HS 01/13/16 [History] Azithromycin [Zithromax] 250 mg PO DAILY PRN 03/17/16 [History] CloNIDine HCl [Clonidine HCl] 0.2 mg PO QPM 03/17/16 [History] Allergies trazodone Adverse Reaction (Verified 08/06/15 16:44) See Comments excessive errection ROS unobtainable: due to mental status Palliative Care-Exam - Constitutional Vitals: Temp Pulse Resp BP Pulse Ox 96.1 F L 68 14 106/67 96 03/20/16 07:34 03/20/16 07:34 03/20/16 07:34 03/20/16 07:34 03/20/16 08:55 General appearance: Present: no acute distress - Head Head Exam: Present: atraumatic, normal inspection - Eye Eye exam: Present: normal appearance - ENT ENT exam: Present: mucous membranes moist - Neck Neck exam: Present: normal inspection - Respiratory Respiratory exam: Present: CTAB - GI/Abdominal Exam GI/Abdominal exam: Present: normal bowel sounds, soft. Absent: tenderness - Extremities Exam Extremities exam: Present: normal inspection. Absent: pedal edema, tenderness - Neurological Exam Neurological exam: Present: altered. Absent: oriented X3 - Psychiatric Psychiatric exam: Absent: agitated, anxious - Skin Skin exam: Present: dry, warm Internal Medicine - CN: Reslt - Labs CBC & Chem 7: 03/19/16 08:14 03/19/16 08:14 Consult Discharge Plan - Plan Referrals: Priscilla Min MD [Primary Care Provider] - 03/24/16 3:00 pm (Please follow up as schedule!!! with Shari Orozco) Palliative Quality Palliative Quality: Screen for Code Status: Yes, Screen for Goals of Care: Yes, Screen for Pain: Yes, If Pain Regimen Started, Initiate Bowel Regimen: Yes, Screen for Nausea/Vomitting: Yes
[2016-03-20 13:48] LABS: Basophils % 0.2 %; Eosinophils % 1.7 %; Immature Granulocytes % 0.5 % (0-4); Mean Corpuscular Hemoglobin 29.6 pg (28.0-33.3)
[2016-03-20 13:49] LABS: Eosinophils # 0.1 K/mcL (0.0-0.6); Hematocrit 32.9 % (37.5-50.1); Hemoglobin 11.3 g/dL (12.9-16.9); Immature Platelets 6.1 % (1.1-6.1); Lymphocytes # 0.9 K/mcL (0.6-4.6); Lymphocytes % 20.8 %; Mean Corpuscular HGB Conc 34.3 g/dL (31.6-35.5); Mean Corpuscular Volume 86.1 fL (83.0-100.0); Mean Platelet Volume 10.9 fL (9.4-12.4); Monocytes # 0.2 K/mcL (0.0-1.3); Red Blood Count 3.82 M/mcL (4.19-5.50); Red Cell Distribution Width 14.2 % (11.5-14.5); Segmented Neutrophils % 71.8 %
[2016-03-20 13:52] LABS: Platelet Count 96 K/mcL (140-400)
[2016-03-20 14:01] LABS: BUN/Creatinine Ratio 8 (6-26); Calcium 8.3 mg/dL (8.6-10.8); Carbon Dioxide 27 mEq/L (19-29); Chloride 107 mEq/L (98-109); Glucose 78 mg/dL (70-99); Osmolality,Calculated 286 (280-300); Potassium 3.6 mEq/L (3.5-4.5); Sodium 140 mEq/L (136-145); eGFR For African Americans > 60 (> 60); eGFR For Non-African Americans > 60 (> 60)
[2016-03-20 14:02] LABS: Blood Urea Nitrogen 4 mg/dL (8-26)
[2016-03-20] MEDS: 0.9 % Sodium Chloride 1,000 ML IVC SCH (16:29)
[2016-03-20] MEDS: cloNIDine HCl 0.1 MG TABLET PO SCH (16:31)
--- NOTE | 2016-03-20 17:10 | Internal Med Progress Note ---
Date of Encounter: 03/20/16 Time of Encounter: 17:05 - Assessment and plan (1) Aspiration pneumonia Current Visit: No Status: Acute Assessment and plan: Patient has just been discharged from hospital. With elevated WBC on admission. Chest x-ray showed pneumonia bilaterally. this is most likely 2/2 aspiration pneumonia as he is continuously being fed. he does appear to be high risk for aspiration pneumonia even with nectar thick liquid diet. family still wants to continue the feeds, discussed with palliative on last admns, do not want tubes at this time. will reconsult palliative again. leucocytosis has improved. no fever, improved clinically. urine legionella is negative, will stop levoflox. will stop vanco and zosyn as blood cx is negative Will continue clindamycin. Qualifiers: Aspiration pneumonia type: unspecified Laterality: bilateral Lung location: lower lobe of lung Qualified Code(s): J69.0 - Pneumonitis due to inhalation of food and vomit (2) Constipation Current Visit: No Status: Acute Assessment and plan: abdominal CAT scan shows moderate stool in the colon and does not move bowels regularly s/p enema and lactulose. will continue the lactulose. Qualifiers: Constipation type: slow transit constipation Qualified Code(s): K59.01 - Slow transit constipation (3) Goals of care, counseling/discussion Current Visit: No Status: Acute Assessment and plan: he has risk for recurrent aspiration pneumonia as long as he is being fed. DNR-CCA- DNI, family wanted to re discuss about the feeding tubes and other different options. Palliative was consulted and family requesting PEG tube placement for supplemental nutrition. It was discussed with the family that he will still be at high risk for aspiration even with the PEG tubes. GI is consulted, will follow recommendation. 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 History of MRDD, nonverbal. History is taken from the family member. Does not complain of any abdominal pain, has been admitted for worsening aspiration pneumonia, recently treated for pneumonia and family aware of having aspiration pneumonia,still want to continnue feeding the patient . no fever today, as per the family, cough is better , seen by palliative today, requesting PEG tube placement. CT abd with no acute pathology. - Constitutional Vitals: Temp Pulse Resp BP Pulse Ox 98.0 F 65 17 132/86 97 03/20/16 15:43 03/20/16 15:43 03/20/16 15:43 03/20/16 15:43 03/20/16 15:43 General appearance: Present: cachectic, A&O X 0, no acute distress. Absent: answers questions appropriately Exam: Head Head exam: Present: atraumatic, normocephalic - Eye Eye exam: Present: PERRL, conjuntiva pink, sclera anicteric Pupils: Present: PERRL - Neck Neck exam general surgery: Present: supple, trachea midline. Absent: lymphadenopathy - Respiratory Respiratory exam: Present: CTAB, . Absent: accessory muscle use, rales, wheezes - Cardiovascular Cardiovascular exam: Present: RRR, +S1, +S2. Absent: diastolic murmur, gallop, rubs, systolic murmur - GI/Abdominal GI/Abdominal exam: Present: normal bowel sounds, soft, no peritoneal signs. Absent: distended, tenderness - Extremities Exam Extremities exam: Present: warm, radial pulses palpable and symetrical. Absent : calf tenderness, cyanotic, pedal edema - Neurological Exam Neurological exam: Present: CN II-XII intact, oriented X3, no focal deficits. Absent: pronater drift, facial droop, speech deficit - Skin Skin exam: Present: dry, intact Internal Medicine: Result - Labs CBC & Chem 7: 03/20/16 13:41 03/20/16 13:41 Labs: Short CBC 03/20/16 Range/Units 13:41 WBC 4.2 L (4.3-11.1) K/mcL Hgb 11.3 L (12.9-16.9) g/dL Hct 32.9 L (37.5-50.1) % Plt Count 96 L (140-400) K/mcL Neutrophils # 3.0 (1.6-8.9) K/mcL BMP 03/20/16 13:41 Sodium 140 Potassium 3.6 Chloride 107 Carbon Dioxide 27 BUN 4 L Creatinine 0.53 L Glucose 78 Calcium 8.3 L Consult Discharge Plan - Plan Referrals: Priscilla Min MD [Primary Care Provider] - 03/24/16 3:00 pm (Please follow up as schedule!!! with Shari Llamas..)
[2016-03-20] MEDS: Sennosides/Docusate Sodium TABLET PO SCH (20:35)
[2016-03-20] MEDS: diazePAM 10 MG TABLET PO SCH (20:35)
[2016-03-21] MEDS: Clindamycin 600 MG/50 ML 600 MG/50 ML IV.SOLN IVPB SCH ×3 (00:15→17:24)
[2016-03-21] MEDS: *HR* Enoxaparin 40 MG/0.4 ML SYRINGE SQ SCH (06:15)
--- NOTE | 2016-03-21 08:51 | Internal Med Progress Note ---
Date of Encounter: 03/21/16 Time of Encounter: 08:49 - Assessment and plan (1) Aspiration pneumonia Current Visit: Yes Status: Acute Assessment and plan: On clindamycin. On nectar thick liquid diet. Palliative care consulted. Family considering PEG tube at this time. GI has been consulted for this. Cultures remain negative. Moderate risk for complications. Qualifiers: Aspiration pneumonia type: unspecified Laterality: bilateral Lung location: lower lobe of lung Qualified Code(s): J69.0 - Pneumonitis due to inhalation of food and vomit (2) Constipation Current Visit: No Status: Acute Assessment and plan: Improving. On senna and lactulose. Qualifiers: Constipation type: slow transit constipation Qualified Code(s): K59.01 - Slow transit constipation (3) Goals of care, counseling/discussion Current Visit: No Status: Acute Assessment and plan: GI consulted for possible PEG tube placement. Palliative care was following. At this time considering PEG tube for supplementation. 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 Appears comfortable. Does not appear to be in any pain. Not answering most questions at this time. - Constitutional Vitals: Temp Pulse Resp BP Pulse Ox 97.7 F 76 20 126/85 96 03/21/16 05:16 03/21/16 05:16 03/21/16 05:16 03/21/16 05:16 03/21/16 05:16 General appearance: Present: cachectic, A&O X 0, no acute distress. Absent: answers questions appropriately - Respiratory Respiratory exam: Present: CTAB. Absent: accessory muscle use, rales, rhonchi, wheezes - Cardiovascular Cardiovascular exam: Present: RRR, +S1, +S2. Absent: diastolic murmur, gallop, rubs, systolic murmur - GI/Abdominal GI/Abdominal exam: Present: normal bowel sounds, soft, no peritoneal signs. Absent: distended, tenderness - Extremities Exam Extremities exam: Present: warm, radial pulses palpable and symetrical. Absent : calf tenderness, cyanotic, pedal edema - Neurological Exam Neurological exam: Present: alert, no focal deficits. Absent: facial droop, speech deficit - Skin Skin exam: Present: dry, intact Internal Medicine: Result - Labs CBC & Chem 7: 03/20/16 13:41 03/20/16 13:41 Labs: Short CBC 03/20/16 Range/Units 13:41 WBC 4.2 L (4.3-11.1) K/mcL Hgb 11.3 L (12.9-16.9) g/dL Hct 32.9 L (37.5-50.1) % Plt Count 96 L (140-400) K/mcL Neutrophils # 3.0 (1.6-8.9) K/mcL BMP 03/20/16 13:41 Sodium 140 Potassium 3.6 Chloride 107 Carbon Dioxide 27 BUN 4 L Creatinine 0.53 L Glucose 78 Calcium 8.3 L Consult Discharge Plan - Plan Referrals: Priscilla Min MD [Primary Care Provider] - 03/24/16 3:00 pm (Please follow up as schedule!!! with Shari Llamas..) - Attending Attestation This document has been at least partially created by [employer] recognition technology by Dr. William. Errors in grammar, wording or other phrases may exist. If errors are found after the documentation is signed, they will be addressed individually in the addendum section of this document when appropriate.
[2016-03-21] MEDS: Lactulose Oral Soln 20 GM/30 ML UDC PO SCH ×3 (09:02→21:27)
[2016-03-21] MEDS: FLUoxetine 20 MG CAPSULE PO SCH (09:03)
[2016-03-21] MEDS: Loratadine 10 MG TABLET PO SCH (09:03)
[2016-03-21] MEDS: Sennosides/Docusate Sodium TABLET PO SCH ×2 (09:03→21:28)
[2016-03-21] MEDS: Divalproex (24 HR) 500 MG TABLET PO SCH ×3 (09:03→21:27)
[2016-03-21] MEDS: 0.9 % Sodium Chloride 1,000 ML IVC SCH (09:04)
--- NOTE | 2016-03-21 09:19 | Gastroenterology Consult Note ---
<Mayela Ross - Last Filed: 03/21/16 11:53> Date of Encounter: 03/21/16 Time of Encounter: 11:45 - Assessment and plan (1) Aspiration pneumonia Current Visit: Yes Status: Acute Assessment and plan: repeated and recurrent. Currently on atbs for same. Qualifiers: Aspiration pneumonia type: unspecified Laterality: bilateral Lung location: lower lobe of lung Qualified Code(s): J69.0 - Pneumonitis due to inhalation of food and vomit (2) Constipation Current Visit: No Status: Acute Assessment and plan: On softeners/laxatives prn. Patient had large bowel movement at time of my exam. US had been unable to be completed due to stool load, will reorder now. Qualifiers: Constipation type: slow transit constipation Qualified Code(s): K59.01 - Slow transit constipation (3) Thrombocytopenia Current Visit: No Status: Acute (4) Dysphagia Current Visit: No Status: Chronic Assessment and plan: Plan for PEG, consent obtained. HOLDING lovenox for possible procedure tomorrow. Qualifiers: Dysphagia type: oropharyngeal phase Qualified Code(s): R13.12 - Dysphagia, oropharyngeal phase (5) Severe protein-calorie malnutrition Current Visit: No Status: Chronic (6) Unintentional weight loss Current Visit: No Status: Chronic (7) Elevated LFTs Current Visit: Yes Status: Acute Assessment and plan: Possibly DILI, r/o cirrhosis, patient is pancytopenic. - Time Spent With Patient Total time spent is greater than 50% in coordination of care (as documented) at patient's floor/unit and/or counseling patient: less than 15 minutes GI History of Present Illness - Data of Consult Patient: new to practice Consult date: 03/21/16 Requesting Physician: Mike William MD - Consult Narrative Reason for consult: PEG placement, elevated LFTs, pancytopenia History of present illness: Mr. 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 Presented to ER for abdominal pain, fever and cough. He was recently d/c from the hospital with a diagnosis of pneumonia only a few days prior to readmission. Since this morning, patient has a fever, chills, increased cough with sputum. Patient denies chest pain, shortness of breath, nausea, vomiting, or diarrhea. He complained his "belly hurts". ER abdominal CAT scan has been done, result is unremarkable. Chest x-ray shows bilateral pneumonia. Patient was admitted as a healthcare associated pneumonia. According to medical chart, there is concern for patient poor oral intake. He had a swallowing evaluation during his previous admission and was placed on nectar thickened liquids as a precaution. There is concern that his frequent bouts of pneumonia may be caused by aspiration, however, according to the chart, family desire for PEG placement is for supplementation due to poor oral intake. Labs reveal elevated AST/ALT, pancytopenia. Albumin level is low at 2.5. CT negative for cirrhosis, will follow up with US liver to r/o cirrhosis. Patient family at bedside. State that since patient last hospitalization has only been on a variety of atbs, no other new medications. US was unable to be completed due to stool load. At the time of my visit, patient had a large bowel movement, will reorder US. Per family, patient is now choking on all items, liquids and solids, they have tried honey thickened, pureed and he continues to choke. Now unable to take oral medications due to worsening symptoms. Patient is non-verbal. Colonoscopy: None EGD: None Past Med Surg Social Fam HX - Past Medical History Medical history: asthma, GERD, other Psychiatric history: bipolar, depression, schizophrenia, other - Past Surgical History Surgical History: non-contributory - Social History Smoking Status: Never smoker Smokeless Tobacco Status: No Alcohol use: none Drug use: none - Family History Mother History Unknown: Yes ROS unobtainable: due to mental status - Gastrointestinal NSAID use: None noted Number of BM Per Day: variable, per caregiver Gastrointestinal: Present: constipation - Constitutional Constitutional: anorexia, weight loss - EENT Eyes: as per HPI Ears: Present: as per HPI Nose, mouth and throat: Present: dysphagia - Cardiovascular Cardiovascular ROS: Present: as per HPI - Respiratory Respiratory IM: Present: as per HPI - Neurological ROS Neurological GI: Present: as per HPI - Hematologic/Lymphatic Hematologic/Lymphatic pediatric: Present: as per HPI - Musculoskeletal Musculoskeletal ROS GI: Present: as per HPI - Integumentary Integumentary GI: Present: as per HPI - Psychiatric ROS Psychiatric GI: Present: as per HPI - Endocrine Endocrine IM: Present: as per HPI - Constitutional Vitals: Temp Pulse Resp BP Pulse Ox 97.6 F 82 16 123/79 100 03/21/16 08:48 03/21/16 08:48 03/21/16 08:48 03/21/16 08:48 03/21/16 08:48 General appearance: Present: cachectic, cooperative, A&O X 1 - Head Head exam: Present: atraumatic, normocephalic - Eye Eye exam: Present: normal appearance, sclera anicteric - ENT ENT exam: Present: mucous membranes moist - Neck Neck exam general surgery: Present: normal inspection, trachea midline - Respiratory Respiratory exam: Present: rhonchi - Cardiovascular Cardiovascular exam: Present: RRR, +S1, +S2 - GI/Abdominal GI/Abdominal exam: Present: soft, no peritoneal signs - Rectal Rectal exam: Present: deferred - Extremities Exam Extremities exam: Present: warm - Neurological Exam Neurological exam: Present: altered, no focal deficits - Psychiatric Psychiatric exam: Present: flat affect - Skin Skin exam: Present: dry, intact, pallor, warm Results - Labs CBC & Chem 7: 03/20/16 13:41 03/20/16 13:41 Labs: Last Result Calcium 8.3 mg/dL (8.6-10.8) L 03/20/16 13:41 Entire Visit Hgb 11.3 g/dL (12.9-16.9) L 03/20/16 13:41 Hct 32.9 % (37.5-50.1) L 03/20/16 13:41 Total Bilirubin 0.9 mg/dL (0.2-1.2) 03/17/16 14:20 AST 36 Units/L (5-34) H 03/17/16 14:20 ALT 67 Units/L (0-55) H 03/17/16 14:20 Amylase 12 Units/L (25-125) L 03/17/16 14:20 Lipase < 4 Units/L (8-78) L 03/17/16 14:20 Consult Discharge Plan - Plan Referrals: Priscilla Min MD [Primary Care Provider] - 03/24/16 3:00 pm (Please follow up as schedule!!! with Shari Llamas..) <Umberto Frazier - Last Filed: 03/21/16 18:20> Date of Encounter: 03/21/16 Time of Encounter: 17:00 - Time Spent With Patient Total time spent is greater than 50% in coordination of care (as documented) at patient's floor/unit and/or counseling patient: GI History of Present Illness - Data of Consult Requesting Physician: Mike William MD - Consult Narrative History of present illness: Mr. Alvarado is a 50 year old male - Constitutional Vitals: Temp Pulse Resp BP Pulse Ox 97.5 F L 86 15 122/85 91 L 03/21/16 15:42 03/21/16 15:42 03/21/16 15:42 03/21/16 15:42 03/21/16 15:42 Results - Labs CBC & Chem 7: 03/20/16 13:41 03/20/16 13:41 Labs: Last Result Calcium 8.3 mg/dL (8.6-10.8) L 03/20/16 13:41 Entire Visit Hgb 11.3 g/dL (12.9-16.9) L 03/20/16 13:41 Hct 32.9 % (37.5-50.1) L 03/20/16 13:41 Total Bilirubin 0.9 mg/dL (0.2-1.2) 03/17/16 14:20 AST 36 Units/L (5-34) H 03/17/16 14:20 ALT 67 Units/L (0-55) H 03/17/16 14:20 Amylase 12 Units/L (25-125) L 03/17/16 14:20 Lipase < 4 Units/L (8-78) L 03/17/16 14:20 - Impressions Impressions Liver Ultrasound 03/21/16 12:00 IMPRESSION: Very limited evaluation, due to difficulties positioning patient related to her kyphosis. The visualized portion of the liver demonstrates no gross evidence of cirrhosis. However, trace ascites is seen in the upper abdomen. D/ / 03/21/2016 16:25:49 Percy Najera MD / adalberto Interpreting Provider: Percy Najera MD - Attending Attestation I examined this patient and my medical decision-making was reviewed with the [employer]ER/PA/Advanced Practice Nurse/Resident Physician. I agree with the documented findings, disposition and treatment plan as described except to the extent set forth below.
--- NOTE | 2016-03-21 10:10 | Palliative Progress Note ---
Date of Encounter: 03/21/16 Time of Encounter: 09:10 - Assessment and plan (1) Pneumonia Current Visit: Yes Status: Acute Assessment and plan: prob d/t aspiration. Pt would like to eat, family has ok'd peg tube. may have to make npo will d/w family cont Qualifiers: Pneumonia type: aspiration pneumonia Aspiration pneumonia type: unspecified Laterality: bilateral Lung location: lower lobe of lung Qualified Code(s): J69.0 - Pneumonitis due to inhalation of food and vomit (2) Aspiration pneumonia Current Visit: Yes Status: Acute Assessment and plan: peg planned, consult is pending cont atbx d/w family about worsening swallowing Qualifiers: Aspiration pneumonia type: unspecified Laterality: bilateral Lung location: lower lobe of lung Qualified Code(s): J69.0 - Pneumonitis due to inhalation of food and vomit (3) Constipation Current Visit: No Status: Acute Assessment and plan: bowels moving cont present regimen Qualifiers: Constipation type: slow transit constipation Qualified Code(s): K59.01 - Slow transit constipation (4) Goals of care, counseling/discussion Current Visit: No Status: Acute Assessment and plan: code dnr a dni family does now want a peg tube,consult pending. will d/w them about feeding risks as swallowing appears to be worse to RN's - Time Spent With Patient Total time spent is greater than 50% in coordination of care (as documented) at patient's floor/unit and/or counseling patient: - Subjective Interval history: no c/o at this time no problems per nursing staff overnight. Family decided yesterday to proceed with peg, for supplementation would like to continue with feeding. Per ns this am pat seems to be choking on anything po - Constitutional Vitals: Abnormal lab results WBC 4.2 K/mcL (4.3-11.1) L 03/20/16 13:41 RBC 3.82 M/mcL (4.19-5.50) L 03/20/16 13:41 Hgb 11.3 g/dL (12.9-16.9) L 03/20/16 13:41 Hct 32.9 % (37.5-50.1) L 03/20/16 13:41 Plt Count 96 K/mcL (140-400) L 03/20/16 13:41 Metamyelocytes % 1.0 % (0) H 03/17/16 14:20 Platelet Estimate Decreased (Normal) L 03/19/16 08:14 Large Platelets Present (Not Present) A 03/17/16 14:20 BUN 4 mg/dL (8-26) L 03/20/16 13:41 Creatinine 0.53 mg/dL (0.72-1.25) L 03/20/16 13:41 Calcium 8.3 mg/dL (8.6-10.8) L 03/20/16 13:41 AST 36 Units/L (5-34) H 03/17/16 14:20 ALT 67 Units/L (0-55) H 03/17/16 14:20 Alkaline Phosphatase 155 Units/L (38-126) H 03/17/16 14:20 Serum Total Protein 5.9 g/dL (6.0-8.3) L 03/17/16 14:20 Albumin 2.5 g/dL (3.5-5.0) L 03/17/16 14:20 Albumin/Globulin Ratio 0.7 (1.1-2.2) L 03/17/16 14:20 Amylase 12 Units/L (25-125) L 03/17/16 14:20 Lipase < 4 Units/L (8-78) L 03/17/16 14:20 Urine Clarity Cloudy (Clear) A 03/17/16 15:02 Urine Ketones Trace mg/dL (Negative) H 03/17/16 15:02 Ur Squamous Epith Cells Many per lpf (None-Few) H 03/17/16 15:02 General appearance: Present: no acute distress - Head Head exam: Present: atraumatic, normal inspection - ENT ENT exam: Present: mucous membranes moist - Respiratory Respiratory exam: Present: CTAB - Cardiovascular Cardiovascular exam: Present: RRR - GI/Abdominal GI/Abdominal exam: Present: normal bowel sounds, soft. Absent: tenderness - Extremities Exam Extremities exam: Present: normal inspection. Absent: pedal edema, tenderness - Neurological Exam Neurological exam: Present: alert (easily awakened), altered - Psychiatric Psychiatric exam: Absent: agitated, anxious - Skin Skin exam: Present: dry, warm Palliative Quality Palliative Quality: Screen for Code Status: Yes, Screen for Goals of Care: Yes, Screen for Pain: Yes, If Pain Regimen Started, Initiate Bowel Regimen: Yes, Screen for Nausea/Vomitting: Yes - Labs CBC & Chem 7: 03/20/16 13:41 03/20/16 13:41 Labs: Laboratory Results - last 24 hr 03/20/16 03/20/16 13:41 13:41 WBC 4.2 L RBC 3.82 L Hgb 11.3 L Hct 32.9 L MCV 86.1 MCH 29.6 MCHC 34.3 RDW 14.2 Plt Count 96 L MPV 10.9 Immature Gran % 0.5 Seg Neutrophils % 71.8 Lymphocytes % 20.8 Monocytes % 5.0 Eosinophils % 1.7 Basophils % 0.2 Neutrophils # 3.0 Lymphocytes # 0.9 Monocytes # 0.2 Eosinophils # 0.1 Basophils # 0.0 Immature Plt Fraction 6.1 Sodium 140 Potassium 3.6 Chloride 107 Carbon Dioxide 27 BUN 4 L Creatinine 0.53 L Est GFR ( Amer) > 60 Est GFR (Non-Af Amer) > 60 BUN/Creatinine Ratio 8 Glucose 78 Calculated Osmolality 286 Calcium 8.3 L Consult Discharge Plan - Plan Referrals: Priscilla Min MD [Primary Care Provider] - 03/24/16 3:00 pm (Please follow up as schedule!!! with Shari Llamas..)
[2016-03-21] MEDS: cloNIDine HCl 0.1 MG TABLET PO SCH (17:24)
[2016-03-21] MEDS: diazePAM 10 MG TABLET PO SCH (21:28)
[2016-03-22] MEDS: Clindamycin 600 MG/50 ML 600 MG/50 ML IV.SOLN IVPB SCH ×3 (00:34→16:33)
[2016-03-22] MEDS: 0.9 % Sodium Chloride 1,000 ML IVC SCH (06:24)
[2016-03-22 07:06] LABS: Basophils % 0.3 %; Eosinophils % 0.4 %; Hemoglobin 12.6 g/dL (12.9-16.9); Immature Granulocytes % 0.4 % (0-4); Lymphocytes # 0.9 K/mcL (0.6-4.6); Lymphocytes % 12.9 %; Mean Corpuscular HGB Conc 34.1 g/dL (31.6-35.5); Mean Corpuscular Hemoglobin 29.2 pg (28.0-33.3); Mean Corpuscular Volume 85.8 fL (83.0-100.0); Mean Platelet Volume 11.3 fL (9.4-12.4); Monocytes # 0.5 K/mcL (0.0-1.3); Monocytes % 7.1 %; Neutrophils # 5.3 K/mcL (1.6-8.9); Platelet Count 108 K/mcL (140-400); Red Blood Count 4.31 M/mcL (4.19-5.50); Red Cell Distribution Width 13.9 % (11.5-14.5); Segmented Neutrophils % 78.9 %
[2016-03-22 07:17] LABS: BUN/Creatinine Ratio 8 (6-26); Calcium 8.6 mg/dL (8.6-10.8); Carbon Dioxide 20 mEq/L (19-29); Chloride 106 mEq/L (98-109); Glucose 57 mg/dL (70-99); Osmolality,Calculated 283 (280-300); Potassium 3.4 mEq/L (3.5-4.5); Sodium 139 mEq/L (136-145); eGFR For African Americans > 60 (> 60); eGFR For Non-African Americans > 60 (> 60)
[2016-03-22 07:18] LABS: Blood Urea Nitrogen 4 mg/dL (8-26)
[2016-03-22] MEDS: Divalproex (24 HR) 500 MG TABLET PO SCH ×2 (07:31→20:25)
[2016-03-22] MEDS: Lactulose Oral Soln 20 GM/30 ML UDC PO SCH ×2 (07:31→20:25)
[2016-03-22] MEDS: Loratadine 10 MG TABLET PO SCH (07:31)
[2016-03-22] MEDS: FLUoxetine 20 MG CAPSULE PO SCH (07:32)
[2016-03-22] MEDS: Sennosides/Docusate Sodium TABLET PO SCH ×2 (07:32→20:25)
[2016-03-22 08:39] LABS: Mycoplasma pneumoniae IgG 0.16 U/L (<=0.09)
--- NOTE | 2016-03-22 08:58 | Internal Med Progress Note ---
Date of Encounter: 03/22/16 Time of Encounter: 08:15 - Assessment and plan (1) Aspiration pneumonia Current Visit: Yes Status: Acute Assessment and plan: Currently on clindamycin. Will repeat chest x-ray after PEG tube placement. If no infiltrates noted, will stop clindamycin tomorrow to complete 7 day course. Moderate risk for complications Qualifiers: Aspiration pneumonia type: unspecified Laterality: bilateral Lung location: lower lobe of lung Qualified Code(s): J69.0 - Pneumonitis due to inhalation of food and vomit (2) Constipation Current Visit: No Status: Resolved Qualifiers: Constipation type: slow transit constipation Qualified Code(s): K59.01 - Slow transit constipation (3) Goals of care, counseling/discussion Current Visit: No Status: Acute Assessment and plan: PEG tube placement today. Palliative care following to help with management. 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 Will hold today's dose for procedure. - Subjective Interval history: Patient is currently somnolent. Difficult to awake. Awaiting PEG tube placement later today. Continues to have aspiration with diet. - Constitutional Vitals: Temp Pulse Resp BP Pulse Ox 98.2 F 85 17 126/84 92 L 03/22/16 07:44 03/22/16 07:44 03/22/16 07:44 03/22/16 07:44 03/22/16 08:00 General appearance: Present: cachectic, no acute distress. Absent: answers questions appropriately Exam: Somnolent and difficult to awake at this time. - Respiratory Respiratory exam: Present: CTAB. Absent: accessory muscle use, rales, rhonchi, wheezes - Cardiovascular Cardiovascular exam: Present: RRR, +S1, +S2. Absent: diastolic murmur, gallop, rubs, systolic murmur - GI/Abdominal GI/Abdominal exam: Present: normal bowel sounds, soft, no peritoneal signs. Absent: distended, tenderness - Extremities Exam Extremities exam: Present: warm, radial pulses palpable and symetrical. Absent : calf tenderness, cyanotic, pedal edema - Skin Skin exam: Present: dry, intact Internal Medicine: Result - Labs CBC & Chem 7: 03/22/16 06:18 03/22/16 06:18 Labs: Short CBC 03/22/16 Range/Units 06:18 WBC 6.7 D (4.3-11.1) K/mcL Hgb 12.6 L (12.9-16.9) g/dL Hct 37.0 L (37.5-50.1) % Plt Count 108 L (140-400) K/mcL Neutrophils # 5.3 (1.6-8.9) K/mcL BMP 03/22/16 06:18 Sodium 139 Potassium 3.4 L Chloride 106 Carbon Dioxide 20 BUN 4 L Creatinine 0.53 L Glucose 57 L Calcium 8.6 - Impressions Impressions Liver Ultrasound 03/21/16 12:00 IMPRESSION: Very limited evaluation, due to difficulties positioning patient related to her kyphosis. The visualized portion of the liver demonstrates no gross evidence of cirrhosis. However, trace ascites is seen in the upper abdomen. D/ / 03/21/2016 16:25:49 [facility] Interpreting Provider: Percy Najera MD Consult Discharge Plan - Plan Referrals: Priscilla Min MD [Primary Care Provider] - 03/24/16 3:00 pm (Please follow up as schedule!!! with Shari Llamas..) - Attending Attestation This document has been at least partially created by [employer] recognition technology by Dr. William. Errors in grammar, wording or other phrases may exist. If errors are found after the documentation is signed, they will be addressed individually in the addendum section of this document when appropriate.
[2016-03-22] MEDS ORDERED: *HR* Propofol 500 MG/50 ML BOTTLE IVC ONE (09:59)
[2016-03-22] MEDS ORDERED: Esmolol 100 MG/10 ML VIAL IVP ONE (09:59)
[2016-03-22] MEDS ORDERED: *HR* Phenylephrine 10 MG/ML VIAL IVC ONE (09:59)
[2016-03-22] MEDS: D5% in 0.45% NACL w KCl 10 MEQ/1,000 ML MLS IVC SCH ×2 (10:23→21:00)
--- NOTE | 2016-03-22 12:27 | Anesthesia Evaluation PreOp ---
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[employer] ARC History: Other (Fragile X syndrome/MRDD maintained on Depakote, Clnidien, Prolixin, Prozac) Other Medical History: GERD (maintained on Omeprazole), Other (Fragile X syndrome) Anesthesia History: No Prior Anesthetic Complications, Past Anesthesia ( Colonoscopy 11/2015) Alcohol Use: none Drug use: none Medications and Allergies Benztropine Mesylate 2 mg PO TID 11/18/15 [History] Cetirizine HCl [Zyrtec] 10 mg PO DAILY 11/18/15 [History] Divalproex (24 HR) [Depakote ER (24 HR)] 500 mg PO BID 11/18/15 [History] Fluphenazine [Prolixin] 10 mg PO BID 11/18/15 [History] Hydroxyzine HCl 50 mg PO TID PRN 11/18/15 [History] Melatonin 5 mg PO HS PRN 11/18/15 [History] Omeprazole [PriLOSEC] 40 mg PO DAILY 11/18/15 [History] FLUoxetine HCl [Prozac] 60 mg PO DAILY #30 capsule 12/08/15 [Rx] Diazepam [Valium] 10 mg PO HS 01/13/16 [History] Montelukast [Singulair] 10 mg PO HS 01/13/16 [History] Azithromycin [Zithromax] 250 mg PO DAILY PRN 03/17/16 [History] CloNIDine HCl [Clonidine HCl] 0.2 mg PO QPM 03/17/16 [History] Allergies trazodone Adverse Reaction (Verified 08/06/15 16:44) See Comments excessive errection - Meds/Allergy Pre-op Review Medications Reviewed: Yes Allergies Reviewed: Yes Anesthesia Results - Labs 03/22/16 06:18 03/22/16 06:18 Laboratory Tests 09/28/15 01/14/16 03/22/16 13:09 21:55 06:18 Est GFR (Non-Af Amer) > 60 POC Glucose 102 H Est Mean Plasma Glucose 82 Hemoglobin A1c 4.5 Laboratory Results Impressions Abdomen/Pelvis CT 03/17/16 13:00 IMPRESSION: 1. Small to moderate right hydrocele with associated small right inguinal hernia. 2. No acute findings in the abdomen or pelvis on this unenhanced study. 3. Moderate to large amount of stool in the colon. 4. Persistent pneumonia in the lung bases. D/ / 03/17/2016 14:09:23 Yomaira Almonte MD / brenda Interpreting Provider: Yomaira Almonte MD Chest X-Ray 03/17/16 14:59 IMPRESSION: 1. Stable chest x-ray with bilateral lower lobe interstitial infiltrates likely representing pneumonia. Continued follow-up to resolution is recommended. D/ / Isaiah East MD / Isaiah East MD Interpreting Provider: Isaiah East MD Liver Ultrasound 03/21/16 12:00 IMPRESSION: Very limited evaluation, due to difficulties positioning patient related to her kyphosis. The visualized portion of the liver demonstrates no gross evidence of cirrhosis. However, trace ascites is seen in the upper abdomen. D/ / 03/21/2016 16:25:49 [facility] Inter[facility] Provider: Percy Najera MD - Imaging EKG: image reviewed (106bpm STach, non-specific ST[facility]) Anesthesia Exam Vital Signs Temp Pulse Resp BP Pulse Ox 03/22/16 11:34 97.4 F L 97 17 163/94 96 03/22/16 08:00 92 L 03/22/16 07:44 98.2 F 85 17 126/84 92 L 03/22/16 03:20 98.1 F 82 18 126/87 92 L 03/21/16 23:50 98.3 F 85 20 120/86 03/21/16 19:48 97.5 F L 86 129/88 86 L 03/21/16 15:42 97.5 F L 86 15 122/85 91 L 03/21/16 12:33 97.8 F 79 14 154/110 93 L Intake and Output 03/21/16 03/22/16 03/22/16 23:59 07:59 15:59 Intake Total 50 / 50 1050 / 1050 278 / 278 Balance 50 / 50 1050 / 1050 278 / 278 Intake: IV Fluids 50 / 50 1050 / 1050 278 / 278 0.9 % Sodium Chloride 1, 1000 / 1000 228 / 228 000 ML @ 60 mls/hr IVC . 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 Sister Nasima Alvarado [phone]. Zeb Grier MD
--- NOTE | 2016-03-22 12:55 | Palliative Progress Note ---
Date of Encounter: 03/22/16 Time of Encounter: 07:20 - Assessment and plan (1) Pneumonia Current Visit: Yes Status: Acute Assessment and plan: prob d/t aspiration. The patient is unable to eat anything at this time. Tube is being placed and this will be main source of food if not only source. Continue current medications per hospitalist team. Qualifiers: Pneumonia type: aspiration pneumonia Aspiration pneumonia type: unspecified Laterality: bilateral Lung location: lower lobe of lung Qualified Code(s): J69.0 - Pneumonitis due to inhalation of food and vomit (2) Aspiration pneumonia Current Visit: Yes Status: Acute Assessment and plan: peg planned, consult is pending cont atbx d/w family about worsening swallowing did this yesterday family is now aware that he cannot swallow anything and will be completely dependent on PEG tube at this time. Albert or for PEG tube this afternoon. Qualifiers: Aspiration pneumonia type: unspecified Laterality: bilateral Lung location: lower lobe of lung Qualified Code(s): J69.0 - Pneumonitis due to inhalation of food and vomit (3) Constipation Current Visit: No Status: Resolved Assessment and plan: bowels moving cont present regimen Problem has now resolved. Qualifiers: Constipation type: slow transit constipation Qualified Code(s): K59.01 - Slow transit constipation (4) Goals of care, counseling/discussion Current Visit: No Status: Acute Assessment and plan: code dnr a dni family does now want a peg tube, consent is now signed and patient will be placed sometime today. At this point patient's CODE STATUS is well worked out, the discussion regarding feeding tube has been worked out, now follow any distance. - Time Spent With Patient Total time spent is greater than 50% in coordination of care (as documented) at patient's floor/unit and/or counseling patient: - Subjective Interval history: no c/o at this time no problems per nursing staff overnight. Family decided yesterday to proceed with peg, and signed consent for it. This will happen sometime this afternoon. - Constitutional Vitals: Abnormal lab results Hgb 12.6 g/dL (12.9-16.9) L 03/22/16 06:18 Hct 37.0 % (37.5-50.1) L 03/22/16 06:18 Plt Count 108 K/mcL (140-400) L 03/22/16 06:18 Metamyelocytes % 1.0 % (0) H 03/17/16 14:20 Platelet Estimate Decreased (Normal) L 03/19/16 08:14 Large Platelets Present (Not Present) A 03/17/16 14:20 Potassium 3.4 mEq/L (3.5-4.5) L 03/22/16 06:18 BUN 4 mg/dL (8-26) L 03/22/16 06:18 Creatinine 0.53 mg/dL (0.72-1.25) L 03/22/16 06:18 Glucose 57 mg/dL (70-99) L 03/22/16 06:18 AST 36 Units/L (5-34) H 03/17/16 14:20 ALT 67 Units/L (0-55) H 03/17/16 14:20 Alkaline Phosphatase 155 Units/L (38-126) H 03/17/16 14:20 Serum Total Protein 5.9 g/dL (6.0-8.3) L 03/17/16 14:20 Albumin 2.5 g/dL (3.5-5.0) L 03/17/16 14:20 Albumin/Globulin Ratio 0.7 (1.1-2.2) L 03/17/16 14:20 Amylase 12 Units/L (25-125) L 03/17/16 14:20 Lipase < 4 Units/L (8-78) L 03/17/16 14:20 Urine Clarity Cloudy (Clear) A 03/17/16 15:02 Urine Ketones Trace mg/dL (Negative) H 03/17/16 15:02 Ur Squamous Epith Cells Many per lpf (None-Few) H 03/17/16 15:02 Mycoplasma pneumon IgG 0.16 U/L (<=0.09) H 03/18/16 06:48 General appearance: Present: no acute distress - Head Head exam: Present: atraumatic, normal inspection - Eye Eye exam: Present: normal appearance - ENT ENT exam: Present: mucous membranes moist - Neck Neck exam: Present: normal inspection - Respiratory Respiratory exam: Present: CTAB - Cardiovascular Cardiovascular exam: Present: RRR - GI/Abdominal GI/Abdominal exam: Present: normal bowel sounds, soft. Absent: tenderness - Extremities Exam Extremities exam: Present: normal inspection. Absent: pedal edema, tenderness - Neurological Exam Neurological exam: Present: altered - Psychiatric Psychiatric exam: Absent: agitated, anxious - Skin Skin exam: Present: dry, warm Palliative Quality Palliative Quality: Screen for Code Status: Yes, Screen for Goals of Care: Yes, Screen for Pain: Yes, If Pain Regimen Started, Initiate Bowel Regimen: Yes, Screen for Nausea/Vomitting: Yes - Labs CBC & Chem 7: 03/22/16 06:18 03/22/16 06:18 Labs: Laboratory Results - last 24 hr 03/18/16 03/22/16 03/22/16 06:48 06:18 06:18 WBC 6.7 D RBC 4.31 Hgb 12.6 L Hct 37.0 L MCV 85.8 MCH 29.2 MCHC 34.1 RDW 13.9 Plt Count 108 L MPV 11.3 Immature Gran % 0.4 Seg Neutrophils % 78.9 Lymphocytes % 12.9 Monocytes % 7.1 Eosinophils % 0.4 Basophils % 0.3 Neutrophils # 5.3 Lymphocytes # 0.9 Monocytes # 0.5 Eosinophils # 0.0 Basophils # 0.0 Sodium 139 Potassium 3.4 L Chloride 106 Carbon Dioxide 20 BUN 4 L Creatinine 0.53 L Est GFR ( Amer) > 60 Est GFR (Non-Af Amer) > 60 BUN/Creatinine Ratio 8 Glucose 57 L Calculated Osmolality 283 Calcium 8.6 Mycoplasma pneumon IgG 0.16 H Mycoplasma pneumon IgM 0.36 - Impressions Impressions Liver Ultrasound 03/21/16 12:00 IMPRESSION: Very limited evaluation, due to difficulties positioning patient related to her kyphosis. The visualized portion of the liver demonstrates no gross evidence of cirrhosis. However, trace ascites is seen in the upper abdomen. D/ / 03/21/2016 16:25:49 Percy Najera MD / [email or web address] Interpreting Provider: Percy Najera MD Consult Discharge Plan - Plan Referrals: Priscilla Min MD [Primary Care Provider] - 03/24/16 3:00 pm (Please follow up as schedule!!! with Shari Llamas..)
--- NOTE | 2016-03-22 15:15 | Anesthesia Evaluation Post Op ---
Date of Encounter: 03/22/16 Time of Encounter: 15:14 - Vital Signs Vital Signs: Vital Signs/O2 Sat/Glucose, Most Current Temp Pulse Resp BP Pulse Ox 03/22/16 15:05 98.5 F 101 16 128/85 98 03/22/16 14:55 98.2 F 106 18 132/84 98 03/22/16 14:45 98.8 F 105 18 132/82 98 03/22/16 14:35 101 18 138/80 95 03/22/16 13:47 98.4 F 95 18 112/71 98 03/22/16 11:34 97.4 F L 97 17 163/94 96 - Lungs Lungs: Clear Ascult./Percussion - Airway Airway: Non-obstructed - Cardiovascular Regular Rate - Mental Status Mental Status: Baseline Status - Pain Pain Scale: 0 - Nausea Vomiting Nausea Vomiting: Not Present - Hydration Hydration: NPO - Discharge PostOp Status: Discharge Patient to home
[2016-03-22] MEDS ORDERED: *HR* Morphine 2 MG/ML SYRINGE IVP ONE (16:24)
[2016-03-22] MEDS: cloNIDine HCl 0.1 MG TABLET PO SCH (17:04)
[2016-03-22] MEDS ORDERED: Ondansetron 4 MG/2 ML VIAL ONE (19:48)
[2016-03-22] MEDS: diazePAM 10 MG TABLET PO SCH (20:25)
[2016-03-23] MEDS: Clindamycin 600 MG/50 ML 600 MG/50 ML IV.SOLN IVPB SCH ×3 (02:20→15:44)
[2016-03-23] MEDS: *HR* Enoxaparin 40 MG/0.4 ML SYRINGE SQ SCH (05:26)
[2016-03-23] MEDS ORDERED: *HR* Promethazine 25 MG/ML VIAL IVP PRN (05:46)
[2016-03-23] MEDS ORDERED: Scopolamine Patch 1.5 MG PATCH.TD72 TD STA (05:46)
[2016-03-23] MEDS ORDERED: *HR* Promethazine 25 MG/ML VIAL IVP STA (05:46)
[2016-03-23 07:46] LABS: BUN/Creatinine Ratio 6 (6-26); Calcium 8.9 mg/dL (8.6-10.8); Carbon Dioxide 29 mEq/L (19-29); Chloride 98 mEq/L (98-109); Glucose 119 mg/dL (70-99); Magnesium 0.8 mg/dL (1.6-2.6); Osmolality,Calculated 278 (280-300); Phosphorous 2.6 mg/dL (2.3-4.7); Potassium 3.2 mEq/L (3.5-4.5); Sodium 135 mEq/L (136-145); eGFR For African Americans > 60 (> 60); eGFR For Non-African Americans > 60 (> 60)
[2016-03-23 07:48] LABS: Blood Urea Nitrogen 3 mg/dL (8-26)
[2016-03-23 07:50] LABS: Basophils % 0.1 %; Hematocrit 41.1 % (37.5-50.1); Immature Granulocytes % 0.6 % (0-4); Lymphocytes # 0.5 K/mcL (0.6-4.6); Lymphocytes % 5.6 %; Mean Corpuscular HGB Conc 34.8 g/dL (31.6-35.5); Mean Corpuscular Hemoglobin 29.4 pg (28.0-33.3); Mean Corpuscular Volume 84.4 fL (83.0-100.0); Monocytes # 0.6 K/mcL (0.0-1.3); Monocytes % 7.1 %; Neutrophils # 7.7 K/mcL (1.6-8.9); Platelet Count 112 K/mcL (140-400); Red Blood Count 4.87 M/mcL (4.19-5.50); Red Cell Distribution Width 13.9 % (11.5-14.5); Segmented Neutrophils % 86.6 %
--- NOTE | 2016-03-23 08:27 | Gastroenterology Progress Note ---
<Mayela Ross - Last Filed: 03/23/16 11:31> Date of Encounter: 03/23/16 Time of Encounter: 10:55 - Assessment and plan (1) Aspiration pneumonia Current Visit: Yes Status: Acute Assessment and plan: Hospitalist management. Qualifiers: Aspiration pneumonia type: unspecified Laterality: bilateral Lung location: lower lobe of lung Qualified Code(s): J69.0 - Pneumonitis due to inhalation of food and vomit (2) Thrombocytopenia Current Visit: No Status: Acute Assessment and plan: Likely 2ndary to cirrhosis. Full liver w/u pending. 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 Liver w/u pending. - Time Spent With Patient Total time spent is greater than 50% in coordination of care (as documented) at patient's floor/unit and/or counseling patient: less than 15 minutes - Subjective Interval history: Patient examined at bedside. He was getting a bath, 2 assistants in room at time. No bleeding noted around recently placed GI tube, tube twisted easily. - Constitutional Vitals: Temp Pulse Resp BP Pulse Ox 97.9 F 107 18 130/84 97 03/23/16 06:32 03/23/16 06:32 03/23/16 06:32 03/23/16 06:32 03/23/16 06:32 General appearance: Present: cachectic, cooperative, A&O X 1 - Head Head exam: Present: atraumatic, normocephalic - Eye Eye exam: Present: normal appearance, sclera anicteric - ENT ENT exam: Present: mucous membranes moist - Neck Neck exam general surgery: Present: normal inspection, trachea midline - Respiratory Respiratory exam: Present: decreased breath sounds - Cardiovascular Cardiovascular exam: Present: RRR, +S1, +S2 - GI/Abdominal GI/Abdominal exam: Present: normal bowel sounds, soft, no peritoneal signs Additional comments: PEG in place, no drainage, bleeding or redness noted. - Rectal Rectal exam: Present: deferred - Extremities Exam Extremities exam: Present: warm Additional comments: contractures - Neurological Exam Neurological exam: Present: alert, altered - Psychiatric Psychiatric exam: Present: flat affect - Skin Skin exam: Present: dry, intact, normal color, warm Results - Labs CBC & Chem 7: 03/23/16 06:50 03/23/16 06:50 Labs: Last Result Calcium 8.9 mg/dL (8.6-10.8) 03/23/16 06:50 Entire Visit Hgb 12.6 g/dL (12.9-16.9) L 03/22/16 06:18 Hct 37.0 % (37.5-50.1) L 03/22/16 06:18 Total Bilirubin 0.9 mg/dL (0.2-1.2) 03/17/16 14:20 AST 36 Units/L (5-34) H 03/17/16 14:20 ALT 67 Units/L (0-55) H 03/17/16 14:20 Amylase 12 Units/L (25-125) L 03/17/16 14:20 Lipase < 4 Units/L (8-78) L 03/17/16 14:20 Consult Discharge Plan - Plan Referrals: Priscilla Min MD [Primary Care Provider] - 03/24/16 3:00 pm (Please follow up as schedule!!! with Shari Llamas..) <Umberto Frazier - Last Filed: 03/23/16 17:13> Date of Encounter: 03/23/16 Time of Encounter: 15:00 - Time Spent With Patient Total time spent is greater than 50% in coordination of care (as documented) at patient's floor/unit and/or counseling patient: - Constitutional Vitals: Temp Pulse Resp BP Pulse Ox 97.2 F L 125 20 123/85 95 03/23/16 15:00 03/23/16 15:00 03/23/16 11:01 03/23/16 15:00 03/23/16 15:00 Results - Labs CBC & Chem 7: 03/23/16 06:50 03/23/16 06:50 Labs: Last Result Calcium 8.9 mg/dL (8.6-10.8) 03/23/16 06:50 Ferritin 655 ng/ml (22-275) H 03/23/16 08:31 Entire Visit Hgb 14.3 g/dL (12.9-16.9) D 03/23/16 06:50 Hct 41.1 % (37.5-50.1) 03/23/16 06:50 Ferritin 655 ng/ml (22-275) H 03/23/16 08:31 Total Bilirubin 0.9 mg/dL (0.2-1.2) 03/17/16 14:20 AST 36 Units/L (5-34) H 03/17/16 14:20 ALT 67 Units/L (0-55) H 03/17/16 14:20 Amylase 12 Units/L (25-125) L 03/17/16 14:20 Lipase < 4 Units/L (8-78) L 03/17/16 14:20 - Impressions Impressions Chest X-Ray 03/23/16 08:32 IMPRESSION: Stable to slightly increased appearance of bilateral airspace opacities, most concerning for multifocal pneumonia. D/ / Percy Najera MD / Percy Najera MD Interpreting Provider: Percy Najera MD - Attending Attestation I examined this patient and my medical decision-making was reviewed with the POLYSOMNOGRAPHER/PA/Advanced Practice Nurse/Resident Physician. I agree with the documented findings, disposition and treatment plan as described except to the extent set forth below.
[2016-03-23] MEDS ORDERED: Magnesium Sulfate 2 GM in D5% in Water 100 ML IVPB ONE (08:29)
--- NOTE | 2016-03-23 08:33 | Internal Med Progress Note ---
Date of Encounter: 03/23/16 Time of Encounter: 08:25 - Assessment and plan (1) Aspiration pneumonia Current Visit: Yes Status: Acute Assessment and plan: Will repeat chest x-ray. On clindamycin. If no infiltrate on chest x-ray, will stop antibiotics. We will start tube feeds today. At high risk for refeeding syndrome and electrolyte abnormalities. We will monitor BMP, magnesium and phosphorus levels closely. Qualifiers: Aspiration pneumonia type: unspecified Laterality: bilateral Lung location: lower lobe of lung Qualified Code(s): J69.0 - Pneumonitis due to inhalation of food and vomit (2) Goals of care, counseling/discussion Current Visit: No Status: Acute Assessment and plan: Palliative care following. Plan to discharge patient home with home health once medically stable. 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 Does not answer questions. Underwent PEG tube placement yesterday. No complications postprocedure. - Constitutional Vitals: Temp Pulse Resp BP Pulse Ox 97.9 F 107 18 130/84 97 03/23/16 06:32 03/23/16 06:32 03/23/16 06:32 03/23/16 06:32 03/23/16 06:32 General appearance: Present: cachectic, no acute distress. Absent: answers questions appropriately - Respiratory Respiratory exam: Present: CTAB. Absent: accessory muscle use, rales, rhonchi, wheezes - Cardiovascular Cardiovascular exam: Present: RRR, +S1, +S2. Absent: diastolic murmur, gallop, rubs, systolic murmur - GI/Abdominal GI/Abdominal exam: Present: normal bowel sounds, soft, no peritoneal signs. Absent: distended, tenderness - Extremities Exam Extremities exam: Present: warm, radial pulses palpable and symetrical. Absent : calf tenderness, cyanotic, pedal edema Internal Medicine: Result - Labs CBC & Chem 7: 03/22/16 06:18 03/23/16 06:50 Labs: BMP 03/23/16 06:50 Sodium 135 L Potassium 3.2 L Chloride 98 Carbon Dioxide 29 BUN 3 L Creatinine 0.53 L Glucose 119 H Calcium 8.9 Consult Discharge Plan - Plan Referrals: Priscilla Min MD [Primary Care Provider] - 03/24/16 3:00 pm (Please follow up as schedule!!! with Shari Llamas..) - Attending Attestation This document has been at least partially created by [employer] recognition technology by Dr. William. Errors in grammar, wording or other phrases may exist. If errors are found after the documentation is signed, they will be addressed individually in the addendum section of this document when appropriate.
[2016-03-23] MEDS: Loratadine 10 MG TABLET PO SCH (08:37)
[2016-03-23] MEDS: Lactulose Oral Soln 20 GM/30 ML UDC PO SCH ×2 (08:37→23:08)
[2016-03-23] MEDS: Sennosides/Docusate Sodium TABLET PO SCH ×2 (08:37→23:04)
[2016-03-23] MEDS: FLUoxetine 20 MG CAPSULE PO SCH (08:37)
[2016-03-23] MEDS: Divalproex (24 HR) 500 MG TABLET PO SCH ×2 (08:37→23:03)
[2016-03-23 08:55] LABS: Hemoglobin 14.3 g/dL (12.9-16.9)
[2016-03-23] MEDS: D5% in 0.45% NACL w KCl 10 MEQ/1,000 ML MLS IVC SCH ×2 (10:25→22:46)
[2016-03-23] MEDS ORDERED: Potassium Chloride Elixir 20 MEQ/15 ML UDC PO ONE (12:36)
[2016-03-23] MEDS: Acetaminophen 325 MG TABLET PO PRN (18:23)
[2016-03-23] MEDS: cloNIDine HCl 0.1 MG TABLET PO SCH (18:23)
[2016-03-23] MEDS: diazePAM 10 MG TABLET PO SCH (23:04)
[2016-03-24] MEDS: Clindamycin 600 MG/50 ML 600 MG/50 ML IV.SOLN IVPB SCH (00:32)
[2016-03-24] MEDS: *HR* Enoxaparin 40 MG/0.4 ML SYRINGE SQ SCH (06:10)
[2016-03-24 06:18] LABS: Basophils % 0.2 %; Eosinophils # 0.1 K/mcL (0.0-0.6); Eosinophils % 1.9 %; Hematocrit 37.7 % (37.5-50.1); Immature Granulocytes % 0.9 % (0-4); Lymphocytes # 1.2 K/mcL (0.6-4.6); Lymphocytes % 23.1 %; Mean Corpuscular HGB Conc 33.4 g/dL (31.6-35.5); Mean Corpuscular Hemoglobin 29.2 pg (28.0-33.3); Mean Corpuscular Volume 87.5 fL (83.0-100.0); Mean Platelet Volume 11.4 fL (9.4-12.4); Monocytes # 0.6 K/mcL (0.0-1.3); Monocytes % 11.5 %; Neutrophils # 3.3 K/mcL (1.6-8.9); Platelet Count 119 K/mcL (140-400); Red Blood Count 4.31 M/mcL (4.19-5.50); Red Cell Distribution Width 14.3 % (11.5-14.5); Segmented Neutrophils % 62.4 %
[2016-03-24 06:21] LABS: Hemoglobin 12.6 g/dL (12.9-16.9)
[2016-03-24 06:33] LABS: BUN/Creatinine Ratio 7 (6-26); Calcium 8.8 mg/dL (8.6-10.8); Carbon Dioxide 31 mEq/L (19-29); Chloride 104 mEq/L (98-109); Glucose 71 mg/dL (70-99); Magnesium 1.2 mg/dL (1.6-2.6); Osmolality,Calculated 291 (280-300); Phosphorous 2.7 mg/dL (2.3-4.7); Potassium 3.8 mEq/L (3.5-4.5); eGFR For African Americans > 60 (> 60); eGFR For Non-African Americans > 60 (> 60)
[2016-03-24 06:34] LABS: Blood Urea Nitrogen 4 mg/dL (8-26); Sodium 143 mEq/L (136-145)
[2016-03-24] MEDS ORDERED: Magnesium Sulfate 2 GM in D5% in Water 100 ML IVPB ONE (08:44)
--- NOTE | 2016-03-24 08:48 | Internal Med Progress Note ---
Date of Encounter: 03/24/16 Time of Encounter: 08:10 - Assessment and plan (1) Aspiration pneumonia Current Visit: Yes Status: Acute Assessment and plan: Chest x-ray reviewed. Shows patchy bilateral opacities concerning for multifocal pneumonia. Likely aspiration pneumonia. Continue clindamycin. Will change to oral clindamycin. Clinically getting better. Qualifiers: Aspiration pneumonia type: unspecified Laterality: bilateral Lung location: lower lobe of lung Qualified Code(s): J69.0 - Pneumonitis due to inhalation of food and vomit (2) Goals of care, counseling/discussion Current Visit: No Status: Acute Assessment and plan: Continue PEG tube feeds. Plan for discharge to home with home health services and continued tube feeds. 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 He does awake easily. Not responding to questions as a baseline. Has been receiving tube feeds without any residuals. - Constitutional Vitals: Temp Pulse Resp BP Pulse Ox 97.7 F 106 22 103/67 92 L 03/24/16 07:08 03/24/16 07:08 03/24/16 07:08 03/24/16 07:08 03/24/16 07:08 General appearance: Present: cachectic, no acute distress. Absent: answers questions appropriately - Respiratory Respiratory exam: Present: CTAB. Absent: accessory muscle use, rales, rhonchi, wheezes - Cardiovascular Cardiovascular exam: Present: RRR, +S1, +S2. Absent: diastolic murmur, gallop, rubs, systolic murmur - GI/Abdominal GI/Abdominal exam: Present: normal bowel sounds, soft, no peritoneal signs. Absent: distended, tenderness Additional comments: PEG tube in place - Skin Skin exam: Present: dry, intact Internal Medicine: Result - Labs CBC & Chem 7: 03/24/16 05:35 03/24/16 05:35 Labs: Short CBC 03/23/16 03/24/16 Range/Units 06:50 05:35 WBC 8.9 5.3 (4.3-11.1) K/mcL Hgb 14.3 D 12.6 L D (12.9-16.9) g/dL Hct 41.1 37.7 (37.5-50.1) % Plt Count 112 L 119 L (140-400) K/mcL Neutrophils # 7.7 3.3 (1.6-8.9) K/mcL BMP 03/24/16 05:35 Sodium 143 D Potassium 3.8 Chloride 104 Carbon Dioxide 31 H BUN 4 L Creatinine 0.56 L Glucose 71 Calcium 8.8 - Impressions Impressions Chest X-Ray 03/23/16 08:32 IMPRESSION: Stable to slightly increased appearance of bilateral airspace opacities, most concerning for multifocal pneumonia. D/ / Percy Najera MD / Percy Najera MD Interpreting Provider: Percy Najera MD Consult Discharge Plan - Plan Referrals: Priscilla Min MD [Primary Care Provider] - 03/24/16 3:00 pm (Please follow up as schedule!!! with Shari Llamas..) - Attending Attestation This document has been at least partially created by [employer] recognition technology by Dr. William. Errors in grammar, wording or other phrases may exist. If errors are found after the documentation is signed, they will be addressed individually in the addendum section of this document when appropriate.
[2016-03-24] MEDS: D5% in 0.45% NACL w KCl 10 MEQ/1,000 ML MLS IVC SCH (09:40)
[2016-03-24] MEDS: Lactulose Oral Soln 20 GM/30 ML UDC PO SCH ×2 (09:42→21:16)
[2016-03-24] MEDS: Sennosides/Docusate Sodium TABLET PO SCH ×2 (09:44→21:16)
[2016-03-24] MEDS: Loratadine 10 MG TABLET PO SCH (09:44)
[2016-03-24] MEDS: Magnesium Oxide 400 MG TABLET PO SCH ×2 (09:44→21:17)
[2016-03-24] MEDS: FLUoxetine 20 MG CAPSULE PO SCH (09:44)
[2016-03-24] MEDS: Divalproex (24 HR) 500 MG TABLET PO SCH (09:44)
[2016-03-24 10:43] LABS: Hepatitis A Antibody IgM Nonreactive (Nonreactive); Hepatitis B Core IgM Nonreactive (Nonreactive); Hepatitis B Surface Antigen Nonreactive (Nonreactive); Hepatitis C Virus Antibody Nonreactive (Nonreactive)
--- NOTE | 2016-03-24 10:45 | Palliative Progress Note ---
Date of Encounter: 03/24/16 Time of Encounter: 07:55 - Assessment and plan (1) Pneumonia Current Visit: Yes Status: Acute Assessment and plan: prob d/t aspiration. PEG tube now on place. The patient is improving clinically although the chest x-ray continues to show patchy bilateral opacities concerning for multifocal pneumonia. The patient is being changed over to clindamycin via the PEG. Plan per hospitalist team. Qualifiers: Pneumonia type: aspiration pneumonia Aspiration pneumonia type: unspecified Laterality: bilateral Lung location: lower lobe of lung Qualified Code(s): J69.0 - Pneumonitis due to inhalation of food and vomit (2) Aspiration pneumonia Current Visit: Yes Status: Acute Assessment and plan: PEG tube was placed at this time patient is tolerating it well. It appears that the pneumonia seems to be clearing, however the chest x-ray is lagging behind as one would expect. Plan per hospitalist team. Qualifiers: Aspiration pneumonia type: unspecified Laterality: bilateral Lung location: lower lobe of lung Qualified Code(s): J69.0 - Pneumonitis due to inhalation of food and vomit (3) Goals of care, counseling/discussion Current Visit: No Status: Acute Assessment and plan: code dnr a dni family does now want a peg tube, consent is now signed and patient will be placed sometime today. At this point patient's CODE STATUS is well worked out, the discussion regarding feeding tube has been worked out, now follow any distance. The patient is tolerating his PEG tube where we will sign off on the case at this time please reconsult if we can help in any way. - Time Spent With Patient Total time spent is greater than 50% in coordination of care (as documented) at patient's floor/unit and/or counseling patient: - Subjective Interval history: no c/o at this time no problems per nursing staff overnight. PEG tube placed overnight. Patient seems to be tolerating it quite well. - Constitutional Vitals: Abnormal lab results Hgb 12.6 g/dL (12.9-16.9) L D 03/24/16 05:35 Plt Count 119 K/mcL (140-400) L 03/24/16 05:35 Metamyelocytes % 1.0 % (0) H 03/17/16 14:20 Platelet Estimate Decreased (Normal) L 03/19/16 08:14 Large Platelets Present (Not Present) A 03/17/16 14:20 Carbon Dioxide 31 mEq/L (19-29) H 03/24/16 05:35 BUN 4 mg/dL (8-26) L 03/24/16 05:35 Creatinine 0.56 mg/dL (0.72-1.25) L 03/24/16 05:35 Magnesium 1.2 mg/dL (1.6-2.6) L 03/24/16 05:35 Ferritin 655 ng/ml (22-275) H 03/23/16 08:31 AST 36 Units/L (5-34) H 03/17/16 14:20 ALT 67 Units/L (0-55) H 03/17/16 14:20 Alkaline Phosphatase 155 Units/L (38-126) H 03/17/16 14:20 Serum Total Protein 5.9 g/dL (6.0-8.3) L 03/17/16 14:20 Albumin 2.5 g/dL (3.5-5.0) L 03/17/16 14:20 Albumin/Globulin Ratio 0.7 (1.1-2.2) L 03/17/16 14:20 Prealbumin 12.0 mg/dL (18.0-45.0) L 03/23/16 06:50 Amylase 12 Units/L (25-125) L 03/17/16 14:20 Lipase < 4 Units/L (8-78) L 03/17/16 14:20 Urine Clarity Cloudy (Clear) A 03/17/16 15:02 Urine Ketones Trace mg/dL (Negative) H 03/17/16 15:02 Ur Squamous Epith Cells Many per lpf (None-Few) H 03/17/16 15:02 Mycoplasma pneumon IgG 0.16 U/L (<=0.09) H 03/18/16 06:48 General appearance: Present: no acute distress - Head Head exam: Present: atraumatic, normal inspection - Eye Eye exam: Present: normal appearance - ENT ENT exam: Present: mucous membranes moist - Respiratory Respiratory exam: Present: CTAB - Cardiovascular Cardiovascular exam: Present: RRR - GI/Abdominal GI/Abdominal exam: Present: normal bowel sounds, soft. Absent: tenderness (PEG tube in place patient is tolerating.) - Extremities Exam Extremities exam: Present: normal inspection. Absent: pedal edema, tenderness - Neurological Exam Neurological exam: Present: altered (Awakens easily but does not answer questions. This is his baseline.) - Psychiatric Psychiatric exam: Absent: agitated, anxious - Skin Skin exam: Present: dry, warm Palliative Quality Palliative Quality: Screen for Code Status: Yes, Screen for Goals of Care: Yes, Screen for Pain: Yes, If Pain Regimen Started, Initiate Bowel Regimen: Yes, Screen for Nausea/Vomitting: Yes - Labs CBC & Chem 7: 03/24/16 05:35 03/24/16 05:35 Labs: Laboratory Results - last 24 hr 03/22/16 03/23/16 03/23/16 09:15 06:50 08:31 WBC RBC Hgb Hct MCV MCH MCHC RDW Plt Count MPV Immature Gran % Seg Neutrophils % Lymphocytes % Monocytes % Eosinophils % Basophils % Neutrophils # Lymphocytes # Monocytes # Eosinophils # Basophils # Sodium Potassium Chloride Carbon Dioxide BUN Creatinine Est GFR ( Amer) Est GFR (Non-Af Amer) BUN/Creatinine Ratio Glucose Calculated Osmolality Calcium Phosphorus Magnesium Ferritin 655 H Prealbumin 12.0 L Tumor Marker AFP 5 03/24/16 03/24/16 05:35 05:35 WBC 5.3 RBC 4.31 Hgb 12.6 L D Hct 37.7 MCV 87.5 MCH 29.2 MCHC 33.4 RDW 14.3 Plt Count 119 L MPV 11.4 Immature Gran % 0.9 Seg Neutrophils % 62.4 Lymphocytes % 23.1 Monocytes % 11.5 Eosinophils % 1.9 Basophils % 0.2 Neutrophils # 3.3 Lymphocytes # 1.2 Monocytes # 0.6 Eosinophils # 0.1 Basophils # 0.0 Sodium 143 D Potassium 3.8 Chloride 104 Carbon Dioxide 31 H BUN 4 L Creatinine 0.56 L Est GFR ( Amer) > 60 Est GFR (Non-Af Amer) > 60 BUN/Creatinine Ratio 7 Glucose 71 Calculated Osmolality 291 Calcium 8.8 Phosphorus 2.7 Magnesium 1.2 L Ferritin Prealbumin Tumor Marker AFP - Impressions Impressions Liver Ultrasound 03/21/16 12:00 IMPRESSION: Very limited evaluation, due to difficulties positioning patient related to her kyphosis. The visualized portion of the liver demonstrates no gross evidence of cirrhosis. However, trace ascites is seen in the upper abdomen. D/ / 03/21/2016 16:25:49 Percy Najera MD / [email or web address] Interpreting Provider: Percy Najera MD Chest X-Ray 03/23/16 08:32 IMPRESSION: Stable to slightly increased appearance of bilateral airspace opacities, most concerning for multifocal pneumonia. D/ / Percy Najera MD / Percy Najera MD Interpreting Provider: Percy Najera MD Consult Discharge Plan - Plan Referrals: Priscilla Min MD [Primary Care Provider] - 03/24/16 3:00 pm (Please follow up as schedule!!! with Shari Llamas..)
[2016-03-24] MEDS: Divalproex Sodium 125 MG CAPSULE PO SCH ×3 (12:49→22:14)
[2016-03-24] MEDS: cloNIDine HCl 0.1 MG TABLET PO SCH (17:42)
[2016-03-24] MEDS: Acetaminophen 325 MG TABLET PO PRN (17:57)
[2016-03-24] MEDS: diazePAM 10 MG TABLET PO SCH (21:17)
[2016-03-25] MEDS ORDERED: Ipratropium/Albuterol Neb 3 ML IH STA (06:46)
[2016-03-25] MEDS ORDERED: Albuterol 2.5 MG/3 ML NEBULIZER IH PRN (06:48)
[2016-03-25 06:49] LABS: Hematocrit 35.6 % (37.5-50.1); Hemoglobin 11.8 g/dL (12.9-16.9); Mean Corpuscular HGB Conc 33.1 g/dL (31.6-35.5); Mean Corpuscular Hemoglobin 28.6 pg (28.0-33.3); Mean Corpuscular Volume 86.4 fL (83.0-100.0); Platelet Count 170 K/mcL (140-400); Red Blood Count 4.12 M/mcL (4.19-5.50); Red Cell Distribution Width 14.4 % (11.5-14.5)
[2016-03-25 07:05] LABS: BUN/Creatinine Ratio 16 (6-26); Blood Urea Nitrogen 8 mg/dL (8-26); Calcium 8.3 mg/dL (8.6-10.8); Carbon Dioxide 28 mEq/L (19-29); Chloride 102 mEq/L (98-109); Glucose 94 mg/dL (70-99); Magnesium 1.4 mg/dL (1.6-2.6); Osmolality,Calculated 282 (280-300); Phosphorous 2.7 mg/dL (2.3-4.7); Potassium 3.8 mEq/L (3.5-4.5); Sodium 137 mEq/L (136-145); eGFR For African Americans > 60 (> 60); eGFR For Non-African Americans > 60 (> 60)
[2016-03-25 07:17] LABS: Dohle Bodies Present (Not Present); Neutrophils # 5.9 K/mcL (1.6-8.9); Toxic Granulation Present (Not Present)
[2016-03-25 07:18] LABS: Polychromasia 1+ (Not Present)
[2016-03-25] MEDS: Ipratropium/Albuterol Neb 3 ML IH SCH ×5 (07:44→23:51)
--- NOTE | 2016-03-25 08:55 | Internal Med Progress Note ---
Date of Encounter: 03/25/16 Time of Encounter: 08:35 - Assessment and plan (1) Aspiration pneumonia Current Visit: Yes Status: Acute Assessment and plan: On oral clindamycin. Given the patient's condition overnight, will repeat chest x-ray to see if he has developed any further episodes of aspiration pneumonitis. Qualifiers: Aspiration pneumonia type: unspecified Laterality: bilateral Lung location: lower lobe of lung Qualified Code(s): J69.0 - Pneumonitis due to inhalation of food and vomit (2) Goals of care, counseling/discussion Current Visit: No Status: Acute Assessment and plan: Continue tube feeds currently held. Will resume at a slow rate. Nutrition following. 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 Tube feeds were stopped overnight due to abnormal breath sounds audible while he was receiving them. Does not appear to be in respiratory distress at this time. No fever or chills reported - Constitutional Vitals: Temp Pulse Resp BP Pulse Ox 98.7 F 110 18 110/75 98 03/25/16 06:55 03/25/16 06:55 03/25/16 07:45 03/25/16 06:55 03/25/16 07:45 General appearance: Present: cachectic, no acute distress. Absent: answers questions appropriately - Respiratory Respiratory exam: Present: rhonchi. Absent: accessory muscle use, rales, wheezes Additional comments: Coarse breath sounds bilaterally - Cardiovascular Cardiovascular exam: Present: RRR, +S1, +S2. Absent: diastolic murmur, gallop, rubs, systolic murmur - GI/Abdominal GI/Abdominal exam: Present: normal bowel sounds, soft, no peritoneal signs. Absent: distended, tenderness Internal Medicine: Result - Labs CBC & Chem 7: 03/25/16 06:33 03/25/16 06:33 Labs: Short CBC 03/25/16 Range/Units 06:33 WBC 6.8 (4.3-11.1) K/mcL Hgb 11.8 L (12.9-16.9) g/dL Hct 35.6 L (37.5-50.1) % Plt Count 170 (140-400) K/mcL Neutrophils # 5.9 (1.6-8.9) K/mcL BMP 03/25/16 06:33 Sodium 137 Potassium 3.8 Chloride 102 Carbon Dioxide 28 BUN 8 Creatinine 0.51 L Glucose 94 Calcium 8.3 L - Impressions Impressions Liver Ultrasound 03/21/16 12:00 IMPRESSION: Very limited evaluation, due to difficulties positioning patient related to her kyphosis. The visualized portion of the liver demonstrates no gross evidence of cirrhosis. However, trace ascites is seen in the upper abdomen. D/ / 03/21/2016 16:25:49 Percy Najera MD / [email or web address] Interpreting Provider: Percy Najera MD Consult Discharge Plan - Plan Referrals: Pirscilla Min MD [Primary Care Provider] - 03/24/16 3:00 pm (Please follow up as schedule!!! with Shari Llamas..) - Attending Attestation This document has been at least partially created by [employer] recognition technology by Dr. William. Errors in grammar, wording or other phrases may exist. If errors are found after the documentation is signed, they will be addressed individually in the addendum section of this document when appropriate.
[2016-03-25] MEDS: *HR* Enoxaparin 40 MG/0.4 ML SYRINGE SQ SCH (10:36)
[2016-03-25] MEDS: Lactulose Oral Soln 20 GM/30 ML UDC PO SCH (10:37)
[2016-03-25] MEDS: FLUoxetine 20 MG CAPSULE PO SCH (10:37)
[2016-03-25] MEDS: Magnesium Oxide 400 MG TABLET PO SCH (10:37)
[2016-03-25] MEDS: Loratadine 10 MG TABLET PO SCH (10:38)
[2016-03-25] MEDS: Acetaminophen 325 MG TABLET PO PRN (10:38)
[2016-03-25] MEDS: Sennosides/Docusate Sodium TABLET PO SCH (10:39)
[2016-03-25] MEDS: Divalproex Sodium 125 MG CAPSULE PO SCH ×2 (13:03→13:04)
[2016-03-25] MEDS ORDERED: Morphine Oral CONC 5 MG/0.25 ML ORAL.SYG SL PRN (14:16)
[2016-03-25] MEDS ORDERED: *HR* LORazepam Oral Conc 2 MG/ML SL PRN (14:36)
[2016-03-25] MEDS: Morphine Oral CONC 5 MG/0.25 ML ORAL.SYG SL PRN ×3 (14:46→20:39)
[2016-03-25] MEDS: Atropine Sulfate 1% 40 DROP/2 ML BOTTLE SL PRN (18:08)
[2016-03-25] MEDS: diazePAM 10 MG TABLET PO SCH (20:56)
[2016-03-26] MEDS: Morphine Oral CONC 5 MG/0.25 ML ORAL.SYG SL PRN ×3 (01:31→08:09)
[2016-03-26 05:16] VITALS: BP 116/80
[2016-03-26] MEDS: Ipratropium/Albuterol Neb 3 ML IH SCH ×2 (05:45→08:45)
[2016-03-26] MEDS ORDERED: Lacri-Lube 3.5 GM TUBE BOTH EYES PRN (07:19)
[2016-03-26] MEDS: Atropine Sulfate 1% 40 DROP/2 ML BOTTLE SL PRN (08:10)
--- NOTE | 2016-03-26 08:40 | Internal Med Progress Note ---
Date of Encounter: 03/26/16 Time of Encounter: 08:00 - Assessment and plan (1) Aspiration pneumonia Current Visit: Yes Status: Acute Assessment and plan: Patient now comfort care only. Continue morphine and Ativan as needed for supportive care. Antibiotics have been stopped. On O2 supplementation. 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 Appears well in no distress at this time. - Constitutional Vitals: Temp Pulse Resp BP Pulse Ox 98.4 F 120 24 116/80 98 03/26/16 05:12 03/26/16 05:12 03/26/16 05:12 03/26/16 05:12 03/26/16 05:12 General appearance: Present: cachectic, no acute distress. Absent: answers questions appropriately - ENT ENT exam: Present: mucous membranes dry - Respiratory Respiratory exam: Absent: accessory muscle use, rales, rhonchi, wheezes Additional comments: Coarse breath sounds bilaterally - GI/Abdominal GI/Abdominal exam: Present: normal bowel sounds - Extremities Exam Extremities exam: Present: warm, radial pulses palpable and symetrical. Absent : calf tenderness, cyanotic, pedal edema Internal Medicine: Result - Labs CBC & Chem 7: 03/25/16 06:33 03/25/16 06:33 - Impressions Impressions Chest X-Ray 03/25/16 08:31 IMPRESSION: Extensive bilateral airspace disease, perhaps slightly worse at the right lung base. Bilateral pneumonia is suspected. Aspiration could have this appearance. Pulmonary edema also considered. Clinical correlation and radiographic follow-up recommended. Severe constipation. D/ / Leobardo Duffy MD / Leobardo Duffy MD Interpreting Provider: Leobardo Duffy MD Consult Discharge Plan - Plan Referrals: Priscilla Min MD [Primary Care Provider] - (web request sent on 03/25/16 ) - Attending Attestation This document has been at least partially created by [employer] recognition technology by Dr. William. Errors in grammar, wording or other phrases may exist. If errors are found after the documentation is signed, they will be addressed individually in the addendum section of this document when appropriate.
--- NOTE | 2016-03-26 08:52 | Discharge Summary ---
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 Priority: Secondary Status: Chronic (4) Mental retardation Priority: Secondary Status: Chronic (5) DVT prophylaxis Priority: Secondary Status: Acute - Discharge Medications Home Medications: Benztropine Mesylate 2 mg PO TID 11/18/15 [History] Cetirizine HCl [Zyrtec] 10 mg PO DAILY 11/18/15 [History] Divalproex (24 HR) [Depakote ER (24 HR)] 500 mg PO BID 11/18/15 [History] Fluphenazine [Prolixin] 10 mg PO BID 11/18/15 [History] Hydroxyzine HCl 50 mg PO TID PRN 11/18/15 [History] Melatonin 5 mg PO HS PRN 11/18/15 [History] Omeprazole [PriLOSEC] 40 mg PO DAILY 11/18/15 [History] FLUoxetine HCl [Prozac] 60 mg PO DAILY #30 capsule 12/08/15 [Rx] Diazepam [Valium] 10 mg PO HS 01/13/16 [History] Montelukast [Singulair] 10 mg PO HS 01/13/16 [History] Azithromycin [Zithromax] 250 mg PO DAILY PRN 03/17/16 [History] CloNIDine HCl [Clonidine HCl] 0.2 mg PO QPM 03/17/16 [History] Allergies/Adverse Reactions: Allergies trazodone Adverse Reaction (Verified 08/06/15 16:44) See Comments excessive errection Date of admission: 03/17/16 18:42 Primary care physician: Priscilla Min Consults: 03/19/16 14:32 Consult to Palliative Care [CONS] Routine Comment: Consulting Provider: Palliative Care Ambar 03/20/16 12:29 Consult to Nutrition [CONS] Stat Comment: please eval for suplemnation that can be thickened Consulting Provider: NUTRITION Reason for Dietary Consult: Diet Education TF Start and Manage 03/20/16 16:06 Consult to Gastroenterology [CONS] Routine Consulting Provider: Rush Villalta Reason for Consult: please evaluate for a PEG tube placement in this patinet with mental retardation and decreased oral intake with recurrent aspiration. Call Completed: No Discharging clinician: Mike William Anticipated date of discharge: 03/26/16 - Patient Status Disposition: Hospice - Medical Facility Condition: Critical Overall status at discharge: patient is not back to baseline - Ambulatory Orders Ambulatory Orders: Misc. Orders Time Frame: 1 Day, Facility: [facility], Location: Home Health Services - Discharge Instructions Instructions: Pneumonia (DC) Follow Up With: Priscilla Min MD [Primary Care Provider] - (web request sent on 03/25/16 ) Hospital course: Mr. Alvarado is a 50 year old male history of fragile X syndrome and mental developmental disorder was admitted here with abdominal pain and diagnosed with multifocal aspiration pneumonia. He was started on antibiotics for this. Patient had been having trouble swallowing and after discussing with the family , GI was consulted and patient underwent PEG tube placement. He had been malnourished for quite a while. Patient's condition did not improve despite starting tube feeds. Tube feed rate has not been able to be advanced to goal for follow-up. After discussing with family, he was transitioned to comfort care yesterday and now will be admitted to inpatient hospice. - Time Spent with Patient Total time spent providing and/or coordinating discharge services: Less than 30 minutes (20 min) - Constitutional Vitals: Temp Pulse Resp BP Pulse Ox 98.4 F 120 24 116/80 98 03/26/16 05:12 03/26/16 05:12 03/26/16 05:12 03/26/16 05:12 03/26/16 05:12 General appearance: Present: cachectic, no acute distress. Absent: answers questions appropriately - Respiratory Respiratory exam: Absent: accessory muscle use, rales, rhonchi, wheezes Additional comments: Coarse breath sounds bilaterally - GI/Abdominal GI/Abdominal exam: Present: normal bowel sounds, soft, no peritoneal signs. Absent: distended, tenderness - Attending Attestation This document has been at least partially created by [employer] recognition technology by Dr. William. Errors in grammar, wording or other phrases may exist. If errors are found after the documentation is signed, they will be addressed individually in the addendum section of this document when appropriate.
[2016-03-26 10:57] LABS: Ceruloplasmin 24 mg/dL (17-54); F-Actin (sm muscle) Ab IgG 12 Units (0-19)
[2016-03-26 11:58] LABS: ANA IgG by ELISA NONE DETECTED (None Detected)
--- NOTE | 2016-03-26 13:53 | Palliative Progress Note ---
Date of Encounter: 03/26/16 Time of Encounter: 06:55 - Assessment and plan (1) Pneumonia Status: Acute Assessment and plan: prob d/t aspiration. PEG tube now on place. The patient has had a major changes now opting for hospice care per his family. He will be switched over to [facility] hospice today. m. Qualifiers: Pneumonia type: aspiration pneumonia Aspiration pneumonia type: unspecified Laterality: bilateral Lung location: lower lobe of lung Qualified Code(s): J69.0 - Pneumonitis due to inhalation of food and vomit (2) Aspiration pneumonia Status: Acute Assessment and plan: The patient has had a major change probably reaspirated, being switched over to general inpatient hospice care today. Qualifiers: Aspiration pneumonia type: unspecified Laterality: bilateral Lung location: lower lobe of lung Qualified Code(s): J69.0 - Pneumonitis due to inhalation of food and vomit (3) Goals of care, counseling/discussion Status: Acute Assessment and plan: Status now DNRCC, patient's family now wishes to have his care. We will transition to general inpatient today as I believe he is close to dying and will require general inpatient level care for shortness of breath. - Time Spent With Patient Total time spent is greater than 50% in coordination of care (as documented) at patient's floor/unit and/or counseling patient: - Subjective Interval history: We had signed off on the case on Sunday, however on Sunday she had an major increase in his difficulty breathing which is probably secondary to aspiration. Family has now opted for comfort care I called in medication changes yesterday. On examination of the patient today he is resting comfortably in however at this time wishes the patient to be DO NOT RESUSCITATE Comfort Care and do with hospice care.. - Constitutional Vitals: Abnormal lab results RBC 4.12 M/mcL (4.19-5.50) L 03/25/16 06:33 Hgb 11.8 g/dL (12.9-16.9) L 03/25/16 06:33 Hct 35.6 % (37.5-50.1) L 03/25/16 06:33 Band Neutrophils % 18.0 % (0-4) H 03/25/16 06:33 Metamyelocytes % 1.0 % (0) H 03/17/16 14:20 Toxic Granulation Present (Not Present) A 03/25/16 06:33 Dohle Bodies Present (Not Present) A 03/25/16 06:33 Platelet Estimate Decreased (Normal) L 03/19/16 08:14 Large Platelets Present (Not Present) A 03/17/16 14:20 Polychromasia 1+ (Not Present) A 03/25/16 06:33 Creatinine 0.51 mg/dL (0.72-1.25) L 03/25/16 06:33 Calcium 8.3 mg/dL (8.6-10.8) L 03/25/16 06:33 Magnesium 1.4 mg/dL (1.6-2.6) L 03/25/16 06:33 Ferritin 655 ng/ml (22-275) H 03/23/16 08:31 AST 36 Units/L (5-34) H 03/17/16 14:20 ALT 67 Units/L (0-55) H 03/17/16 14:20 Alkaline Phosphatase 155 Units/L (38-126) H 03/17/16 14:20 Serum Total Protein 5.9 g/dL (6.0-8.3) L 03/17/16 14:20 Albumin 2.5 g/dL (3.5-5.0) L 03/17/16 14:20 Albumin/Globulin Ratio 0.7 (1.1-2.2) L 03/17/16 14:20 Prealbumin 12.0 mg/dL (18.0-45.0) L 03/23/16 06:50 Amylase 12 Units/L (25-125) L 03/17/16 14:20 Lipase < 4 Units/L (8-78) L 03/17/16 14:20 Urine Clarity Cloudy (Clear) A 03/17/16 15:02 Urine Ketones Trace mg/dL (Negative) H 03/17/16 15:02 Ur Squamous Epith Cells Many per lpf (None-Few) H 03/17/16 15:02 Mycoplasma pneumon IgG 0.16 U/L (<=0.09) H 03/18/16 06:48 General appearance: Present: no acute distress - Head Head exam: Present: atraumatic, normal inspection - Eye Eye exam: Present: normal appearance - ENT ENT exam: Present: mucous membranes moist - Respiratory Respiratory exam: Present: decreased breath sounds, rhonchi - Cardiovascular Cardiovascular exam: Present: RRR, tachycardia - GI/Abdominal GI/Abdominal exam: Present: hypoactive bowel sounds, soft. Absent: tenderness ( [peg Tube is in place) - Extremities Exam Extremities exam: Present: normal inspection. Absent: pedal edema, tenderness - Neurological Exam Neurological exam: Present: altered - Psychiatric Psychiatric exam: Absent: agitated, anxious - Skin Skin exam: Present: dry, warm Palliative Quality Palliative Quality: Screen for Code Status: Yes, Screen for Goals of Care: Yes, Screen for Pain: Yes, If Pain Regimen Started, Initiate Bowel Regimen: Yes, Screen for Nausea/Vomitting: Yes Code Status: 03/17/16 18:42 Resuscitation Status: Active [RES] Routine Comment: Resuscitation Status: DNR-Comfort Care - Labs CBC & Chem 7: 03/25/16 06:33 03/25/16 06:33 Labs: Laboratory Results - last 24 hr 03/23/16 03/23/16 08:31 08:31 Ceruloplasmin 24 MORALES Screen NONE DETECTED ANCA IgG <1:20 Mitochondria M2 IgG Ab 5.1 F-Actin IgG Antibody 12 Consult Discharge Plan - Plan Instructions: Pneumonia (DC) Referrals: Priscilla Min MD [Primary Care Provider] - (web request sent on 03/25/16 )
--- NOTE | 2016-03-26 13:57 | Event Note ---
Date of Encounter: 03/26/16 Time of Encounter: 13:55 Hospice medical review specialist certification of terminal illness: Hospice benefit. Start: 03/26/2016 Hospice benefit. In: +90 days Palliative performance scale: 20% History: with a history of MRDD, also history of possible cirrhosis. Presenting with repeat aspiration pneumonitis. The patient is no longer able to swallow. It has aspirated despite a PEG tube placed. Family has opted for no further feeding through the PEG tube. The patient is unable to take anything by mouth due to persistent choking and inability to swallow. He has worsening pneumonitis secondary to repeat aspirations and the family has opted for no further aggressive care. These findings support a life expectancy of 6 months or less. I attest that I have compose the above narrative based on my review of the patient's medical records, and or on my examination of the patient. Bernabe Marion M.D. Associate center medical and lab director. [facility]
[2016-03-29 10:30] LABS: C282Y Hemochromatosis Mutation HETEROZYGOUS; H63D Hemochromatosis Mutation NEGATIVE; HFE Specimen Type WHOLE BLOOD; S65C Hemochromatosis Mutation NEGATIVE
[2016-03-29 20:31] LABS: A1A SZ Specimen WHOLE BLOOD; Alpha-1-Antitrypsin S Allele NEGATIVE; Alpha-1-Antitrypsin Z Allele NEGATIVE
[2016-03-30 07:58] LABS: Alpha-1-Antitrypsin 210 mg/dL (90-200)
== END 2016-03-26 09:44 | disposition hospice, inpatient (51) | DRG 137 ==
LOC: 2ANU 12:40 → EMEROO 12:40 → 2ANU 18:26 → SUATTDRO 18:42 → 2ANU 03-25 18:35
PROVIDERS: ADMIT Family Medicine; ATTEND Internal Medicine

== ENCOUNTER 2016-03-26 08:52 | Inpatient (IN) ==
[2016-03-26] MEDS ORDERED: Atropine Sulfate 1% 40 DROP/2 ML BOTTLE SL PRN (09:25)
[2016-03-26] MEDS ORDERED: *HR* LORazepam Oral Conc 2 MG/ML PO PRN (09:25)
[2016-03-26] MEDS ORDERED: Haloperidol Oral Conc 10 MG/5 ML UDC PO PRN (09:25)
[2016-03-26] MEDS ORDERED: Albuterol 2.5 MG/3 ML NEBULIZER IH PRN (09:25)
[2016-03-26] MEDS ORDERED: Bisacodyl 10 MG RECTAL SUPPOSITORY RC PRN (09:25)
--- NOTE | 2016-03-26 09:25 | Pallative History & Physical ---
Date of Encounter: 03/26/16 Time of Encounter: 07:00 Assessment and Plan (1) Shortness of breath Current visit: Yes Status: Acute Continue oxygen therapy, continue inhalation therapy. The patient also has morphine available for shortness of breath as well as pain. (2) Goals of care, counseling/discussion Current visit: No Status: Acute DNR comfort care. She is on general inpatient hospice service for continued care of acute dyspnea secondary to aspiration pneumonia. In addition the patient can no longer swallow is not able to take anything further through the PEG tube therefore the patient has no by mouth intake. All antibiotics have been stopped and everything except comfort care medications have been stopped therefore believe the patient meets criteria for general inpatient hospice (3) Aspiration pneumonia Current visit: No Status: Acute Terminal diagnosis. No further treatment for this. Patient is no longer being fed due to the acute encephalopathy secondary to the aspiration pneumonitis. Qualifiers: Aspiration pneumonia type: unspecified Laterality: bilateral Lung location: lower lobe of lung Qualified Code(s): J69.0 - Pneumonitis due to inhalation of food and vomit Internal Medicine - H&P: HPI Admitted From: Intrahospital Transfer Plans for Post Hospital Care: Hospice - Home History of present illness: Mr. Alvarado is a 50 year old male With a history of repeat aspiration pneumonias. Being worked up for possible cirrhosis. In addition the patient was found to have difficulty with swallowing which then rest and not being able to swallow at all. Patient did have a PEG tube placed tolerating it well, however he has aspirated yet again. This point in time family has opted to stop the PEG tube feedings, patient is unable to eat at all secondary to metabolic encephalopathy secondary to pneumonia. Further the family has opted for no further aggressive treatment of the aspiration pneumonitis. Patient is being switched over to general inpatient hospice today for symptomatic treatment of shortness of breath secondary to aspiration pneumonia. Past Med Surg Social Fam HX - Past Medical History Medical history: asthma, GERD, other Psychiatric history: bipolar, depression, schizophrenia, other - Past Surgical History Surgical History: non-contributory - Social History Smoking Status: Unknown if ever smoked Smokeless Tobacco Status: No Alcohol use: none Drug use: none Internal Medicine - H&P: Meds Benztropine Mesylate 2 mg PO TID 11/18/15 [History] Cetirizine HCl [Zyrtec] 10 mg PO DAILY 11/18/15 [History] Divalproex (24 HR) [Depakote ER (24 HR)] 500 mg PO BID 11/18/15 [History] Fluphenazine [Prolixin] 10 mg PO BID 11/18/15 [History] Hydroxyzine HCl 50 mg PO TID PRN 11/18/15 [History] Melatonin 5 mg PO HS PRN 11/18/15 [History] Omeprazole [PriLOSEC] 40 mg PO DAILY 11/18/15 [History] FLUoxetine HCl [Prozac] 60 mg PO DAILY #30 capsule 12/08/15 [Rx] Diazepam [Valium] 10 mg PO HS 01/13/16 [History] Montelukast [Singulair] 10 mg PO HS 01/13/16 [History] Azithromycin [Zithromax] 250 mg PO DAILY PRN 03/17/16 [History] CloNIDine HCl [Clonidine HCl] 0.2 mg PO QPM 03/17/16 [History] Allergies trazodone Adverse Reaction (Verified 08/06/15 16:44) See Comments excessive errection ROS unobtainable: due to mental status Palliative Care-Exam - Constitutional General appearance: Present: no acute distress, thin - Head Head Exam: Present: atraumatic, normal inspection - Eye Eye exam: Present: normal appearance - ENT ENT exam: Present: mucous membranes moist - Neck Neck exam: Present: normal inspection - Respiratory Respiratory exam: Present: decreased breath sounds, prolonged expiratory phase, rhonchi - Cardiovascular Cardiovascular exam: Present: RRR, tachycardia - GI/Abdominal Exam GI/Abdominal exam: Present: diminished bowel sounds, soft. Absent: tenderness ( PEG tube in place) - Extremities Exam Extremities exam: Present: normal inspection. Absent: pedal edema, tenderness - Neurological Exam Neurological exam: Present: altered - Psychiatric Psychiatric exam: Absent: agitated, anxious - Skin Skin exam: Present: dry, warm Palliative Quality Palliative Quality: Screen for Code Status: Yes, Screen for Goals of Care: Yes, Screen for Pain: Yes, If Pain Regimen Started, Initiate Bowel Regimen: Yes, Screen for Nausea/Vomitting: Yes
[2016-03-26] MEDS ORDERED: Lacri-Lube 3.5 GM TUBE BOTH EYES PRN (09:30)
[2016-03-26] MEDS: Morphine Oral CONC 5 MG/0.25 ML ORAL.SYG PO PRN ×3 (11:02→18:39)
[2016-03-26] MEDS: Ipratropium/Albuterol Neb 3 ML IH SCH ×4 (12:05→23:50)
[2016-03-26] MEDS: diazePAM 10 MG TABLET PO SCH (21:53)
[2016-03-27] MEDS: Morphine Oral CONC 5 MG/0.25 ML ORAL.SYG PO PRN (02:57)
[2016-03-27] MEDS: Ipratropium/Albuterol Neb 3 ML IH SCH ×6 (04:18→23:50)
[2016-03-27] MEDS ORDERED: Haloperidol Oral Conc 10 MG/5 ML UDC GTUBE PRN (09:37)
--- NOTE | 2016-03-27 09:43 | Palliative - Consult Note ---
Date of Encounter: 03/27/16 Time of Encounter: 09:20 - Assessment and Plan (1) Goals of care, counseling/discussion Current Visit: No Status: Acute Assessment and plan: Sister at bedside states that oral meds are causing pt to choke and cough. Will transition comfort meds for administration via PEG. (2) Dyspnea Current Visit: Yes Status: Acute Assessment and plan: Continue Morphine 5 mg hourly as needed and monitor. Qualifiers: Dyspnea type: unspecified Qualified Code(s): R06.00 - Dyspnea, unspecified (3) Anxiety Current Visit: Yes Status: Acute Assessment and plan: Continue Ativan per PEG and monitor. Adjust as needed. (4) Agitation Current Visit: Yes Status: Acute Assessment and plan: Haldol via PEG PRN. MOnitor and adjust as necessary. 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 Alvarado is a 50 year old male known to the Palliative care team from previous consultations, who was admitted for inpatient hospice care over the weekend. Patient has history of fragile X syndrome, and has been progressively failing over the last few months. He has been hospitalized for repeated aspiration pneumonias. Despite repeated conversations that they did not desire to place a feeding tube, the most recent hospitalization, the primary caregivers, pt sisters, Leslie and Alem, changed their mind and desired for PEG to be placed. Unfortunately, pt had another aspiration event over the weekend, despite artificial feedings, and family decided to transition to comfort care only and he was discharged from hospital and re-admitted to in hospice for symptom control. CC: Bernabe Marion MD Past Med Surg Social Fam HX - Past Medical History Medical history: asthma, GERD, other Psychiatric history: bipolar, depression, schizophrenia, other - Past Surgical History Surgical History: non-contributory - Social History Smoking Status: Unknown if ever smoked Smokeless Tobacco Status: No Alcohol use: none Drug use: none Medications and Allergies Benztropine Mesylate 2 mg PO TID 11/18/15 [History] Cetirizine HCl [Zyrtec] 10 mg PO DAILY 11/18/15 [History] Divalproex (24 HR) [Depakote ER (24 HR)] 500 mg PO BID 11/18/15 [History] Fluphenazine [Prolixin] 10 mg PO BID 11/18/15 [History] Hydroxyzine HCl 50 mg PO TID PRN 11/18/15 [History] Melatonin 5 mg PO HS PRN 11/18/15 [History] Omeprazole [PriLOSEC] 40 mg PO DAILY 11/18/15 [History] FLUoxetine HCl [Prozac] 60 mg PO DAILY #30 capsule 12/08/15 [Rx] Diazepam [Valium] 10 mg PO HS 01/13/16 [History] Montelukast [Singulair] 10 mg PO HS 01/13/16 [History] Azithromycin [Zithromax] 250 mg PO DAILY PRN 03/17/16 [History] CloNIDine HCl [Clonidine HCl] 0.2 mg PO QPM 03/17/16 [History] Allergies trazodone Adverse Reaction (Verified 08/06/15 16:44) See Comments excessive errection ROS unobtainable: due to mental status Palliative Care-Exam - Constitutional Vitals: Temp Pulse Resp BP Pulse Ox 98.0 F 130 19 117/78 94 L 03/26/16 20:39 03/26/16 20:39 03/27/16 04:34 03/26/16 20:39 03/27/16 04:34 General appearance: Present: no acute distress, thin - ENT ENT exam: Present: mucous membranes moist - Respiratory Additional comments: Few scattered rhonchi throughout anterior chest. Resp shallow and regular - Cardiovascular Cardiovascular exam: Present: tachycardia - GI/Abdominal Exam GI/Abdominal exam: Present: diminished bowel sounds, soft additional comments: PEG intact and clamped - Extremities Exam Additional comments: 1-2 + bilateral lower extremity edema - Neurological Exam Additional comments: Patient opens eyes occasionally when family speaks with him. No other response - Skin Skin exam: Present: dry, pallor, warm Palliative Quality Palliative Quality: Screen for Code Status: Yes, Screen for Goals of Care: Yes, Screen for Pain: Yes, If Pain Regimen Started, Initiate Bowel Regimen: Yes, Screen for Nausea/Vomitting: Yes Code Status: 02/19/17 09:25 Resuscitation Status: Active [RES] Stat Comment: Resuscitation Status: DNR-Comfort Care
[2016-03-27] MEDS: *HR* Morphine Soln 10 MG/5 ML UDC GTUBE PRN ×2 (11:08→15:09)
[2016-03-27] MEDS: diazePAM 10 MG TABLET PO SCH (22:32)
[2016-03-28] MEDS: Ipratropium/Albuterol Neb 3 ML IH SCH ×6 (03:57→23:30)
[2016-03-28] MEDS: *HR* Morphine Soln 10 MG/5 ML UDC GTUBE PRN ×2 (08:10→21:36)
--- NOTE | 2016-03-28 09:14 | Palliative Progress Note ---
Date of Encounter: 03/28/16 Time of Encounter: 09:15 - Assessment and plan (1) Goals of care, counseling/discussion Current Visit: No Status: Acute (2) Dyspnea Current Visit: Yes Status: Acute Assessment and plan: Continue with Morphine via PEG and monitor PRN. Utilized x3 last 24 hours Qualifiers: Dyspnea type: unspecified Qualified Code(s): R06.00 - Dyspnea, unspecified (3) Anxiety Current Visit: Yes Status: Acute Assessment and plan: Ativan as needed via PEG. Has not required last 24 hours. (4) Agitation Current Visit: Yes Status: Acute Assessment and plan: Continue Haldol PRN. 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 Running fever this am. Appears comfortable. No family present at this time. - Constitutional General appearance: Present: no acute distress - Respiratory Additional comments: Occasional scattered rhonchi. - Cardiovascular Cardiovascular exam: Present: tachycardia - GI/Abdominal GI/Abdominal exam: Present: normal bowel sounds, soft Additional comments: PEG in place and clamped - Extremities Exam Additional comments: 1+ bilateral lower extremity edema. - Neurological Exam Additional comments: Occasionally opens eyes, but no other verbal response. Does not follow any commands - Skin Skin exam: Present: pallor, warm Additional comments: Moist Palliative Quality Palliative Quality: Screen for Code Status: Yes, Screen for Goals of Care: Yes, Screen for Pain: Yes, If Pain Regimen Started, Initiate Bowel Regimen: Yes, Screen for Nausea/Vomitting: Yes Code Status: 03/26/16 09:25 Resuscitation Status: Active [RES] Stat Comment: Resuscitation Status: DNR-Comfort Care Consult Discharge Plan - Plan Referrals: NO,PCP [Primary Care Provider] -
[2016-03-28] MEDS: *HR* LORazepam 1 MG TABLET GTUBE PRN (15:39)
[2016-03-28] MEDS: diazePAM 10 MG TABLET PO SCH (21:37)
[2016-03-29 00:11] VITALS: BP 138/78
[2016-03-29] MEDS: *HR* Morphine Soln 10 MG/5 ML UDC GTUBE PRN ×3 (02:46→17:13)
[2016-03-29] MEDS: Ipratropium/Albuterol Neb 3 ML IH SCH ×3 (04:50→08:04)
--- NOTE | 2016-03-29 09:21 | Palliative Progress Note ---
Date of Encounter: 03/29/16 Time of Encounter: 08:50 - Assessment and plan (1) Goals of care, counseling/discussion Current Visit: No Status: Acute (2) Dyspnea Current Visit: Yes Status: Acute Assessment and plan: Continue Morphine elixir PRN. Utilized x3 last 24 hours. Most aerosols have been held r/t tachycardia and I do not believe they are providing him comfort at this point, will change to PRN and Monitor Qualifiers: Dyspnea type: unspecified Qualified Code(s): R06.00 - Dyspnea, unspecified (3) Anxiety Current Visit: Yes Status: Acute Assessment and plan: Continue Ativan PRN. Has utilized x1 last 24 hours. (4) Agitation Current Visit: Yes Status: Acute Assessment and plan: Continue Haldol PRN. Has not utilized. (5) Congestion of upper airway Current Visit: Yes Status: Acute Assessment and plan: Continue Scopolamine patch and Atropine drops PRN. 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 Resp shallow and irreg. Fever last pm 103.5. Appears comfortable. Family sleeping at bedside - Constitutional General appearance: Present: no acute distress - Respiratory Additional comments: Shallow respirations. Scattered rhonchi throughout - Cardiovascular Cardiovascular exam: Present: tachycardia - GI/Abdominal GI/Abdominal exam: Present: hypoactive bowel sounds, soft Additional comments: PEG clamped and intact - Additional comments: dk nydia urine - Extremities Exam Extremities exam: Present: normal capillary refill, normal inspection - Neurological Exam Additional comments: unresponsive to verbal and tactile stimuli - Skin Skin exam: Present: dry, pallor, warm Additional comments: moist Palliative Quality Palliative Quality: Screen for Code Status: Yes, Screen for Goals of Care: Yes, Screen for Pain: Yes, If Pain Regimen Started, Initiate Bowel Regimen: Yes, Screen for Nausea/Vomitting: Yes Code Status: 03/26/16 09:25 Resuscitation Status: Active [RES] Stat Comment: Resuscitation Status: DNR-Comfort Care Consult Discharge Plan - Plan Referrals: NO,PCP [Non-Partnered Physician] -
[2016-03-29] MEDS: diazePAM 10 MG TABLET PO SCH (21:59)
[2016-03-30] MEDS: *HR* Morphine Soln 10 MG/5 ML UDC GTUBE PRN ×2 (06:20→09:35)
[2016-03-30] MEDS: *HR* LORazepam 1 MG TABLET GTUBE PRN (07:38)
[2016-03-30] MEDS ORDERED: Morphine Oral CONC 5 MG/0.25 ML ORAL.SYG PO SCH (09:05)
--- NOTE | 2016-03-30 09:08 | Palliative Progress Note ---
Date of Encounter: 03/30/16 Time of Encounter: 09:05 - Assessment and plan (1) Anxiety Current Visit: Yes Status: Acute Assessment and plan: Lorazepam as needed with Scheduled diazepam at HS. One dose of lorazepam in the past 24 hours. Haldol as needed if no response from the lorazepam. (2) Congestion of upper airway Current Visit: Yes Status: Acute Assessment and plan: Scopolamine patch. Upper airway clear at this time. (3) Dyspnea Current Visit: Yes Status: Acute Assessment and plan: continued dyspnea as evidence of tachypnea, shallow breathing, with accessory muscle use. Will schedule morphine via G-tube every 4 hours and continue with PRN dosing. Qualifiers: Dyspnea type: unspecified Qualified Code(s): R06.00 - Dyspnea, unspecified (4) Aspiration pneumonia Current Visit: No Status: Acute Qualifiers: Aspiration pneumonia type: unspecified Laterality: bilateral Lung location: lower lobe of lung Qualified Code(s): J69.0 - Pneumonitis due to inhalation of food and vomit (5) Goals of care, counseling/discussion Current Visit: No Status: Acute Assessment and plan: Mr. Alvarado is unresponsive with terminal fevers yesterday. Adjusting medications to provide more comfort. Given his physical exam and clinical picture, is imminent. He is not safe for transfer outside of the facility. Continue with general in-patient services. 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 Alvarado is lying in bed, unresponsive, family at bedside. Discussed medication use and adjustments. - Constitutional General appearance: Present: mild distress, thin - ENT ENT exam: Present: mucous membranes dry - Respiratory Respiratory exam: Present: accessory muscle use, rhonchi, tachypnea. Absent: respiratory distress - Cardiovascular Cardiovascular exam: Present: RRR, tachycardia - GI/Abdominal GI/Abdominal exam: Present: hypoactive bowel sounds. Absent: tenderness Additional comments: abdomen scaphoid in appearance. - Extremities Exam Extremities exam: Absent: normal inspection (poor muscle tone) - Neurological Exam Neurological exam: Absent: alert - Skin Skin exam: Present: diaphoretic, warm Palliative Quality Palliative Quality: Screen for Code Status: Yes, Screen for Goals of Care: Yes, Screen for Pain: Yes, If Pain Regimen Started, Initiate Bowel Regimen: Yes, Screen for Nausea/Vomitting: Yes Code Status: 03/26/16 09:25 Resuscitation Status: Active [RES] Stat Comment: Resuscitation Status: DNR-Comfort Care Consult Discharge Plan - Plan Referrals: NO,PCP [Non-Partnered Physician] -
[2016-03-30] MEDS ORDERED: Morphine Oral CONC 5 MG/0.25 ML ORAL.SYG GTUBE SCH (09:09)
--- NOTE | 2016-03-30 12:28 | Death Note ---
Discharge Sum: Summary - Date and Time Date of admission: 03/26/16 09:53 Date of : 03/30/16 Time of : 11:51 - Summary Details: Mr. Alvarado is a 50-year-old male patient admitted to [facility] under general inpatient hospice care. Mr. Alvarado has a history of fragile X syndrome and has been progressively failing over the last few months. He has had multiple hospitalizations for aspiration pneumonia. As result of the aspiration pneumonia, a feeding tube was placed. Despite this, Mr. Alvarado continue to aspirate. After family discussions, Mr. Alvarado's family elected to transition to comfort care measures. He was readmitted to the hospital for general inpatient hospice due to symptom management. Mr. Alvarado was provided with comfort measures for control of dyspnea, pain, anxiety/agitation, and airway secreations. His condition continued to deteriorate and he was not safe to be transported home. Mr. Alvarado on 03/30/2016 at 1151 with his family at bedside. Spiritual support was provided to him and his family by the [employer]. Hospice nurse was also at bedside to pronounce. Dr. Milton Estrada (hospice medical assembly) notified. - Additional Data Confirmation of as documented by pronouncing clinician: no pulse, no respirations, no heart sounds, pupils fixed and dilated Family: at bedside Additional persons at bedside: grace Attending/PCP notified?: Yes Attending physician: Bernabe Marion MD Was code activated?: No Autopsy requested?: No ampoule examiner notified?: No Organ bank notified?: Yes Advance directives: Yes Hospice patient?: Yes Discharge Sum: Diag - PCOD Probable Cause of : Respiratory arrest Discharge Sum: Prov - Provider Primary care physician: Priscilla Min Admitting clinician: Bernabe Marion Attending physician on admission: Bernabe Marion Consults: 03/26/16 09:25 Consult to Palliative Care [CONS] Routine Comment: Consulting Provider: Palliative Care [place]
== END 2016-03-30 14:50 | disposition expired | DRG 177 ==
LOC: 2ANU 09:53
PROVIDERS: ADMIT Family Medicine Hospice and Palliative Medicine; ATTEND Family Medicine Hospice and Palliative Medicine